=== PATIENT | male | born 1960 | race African-American/Black ===

== ENCOUNTER 2020-12-03 11:49 | Outpatient (REF) | payer OTHER, SELFPAY ==
[2020-12-03 13:54] LABS: MANUAL DIFF FLAG NO
[2020-12-03 13:55] LABS: Basophils Percent Auto 0.3 % (0-2); Eosinophils Absolute Auto 0.1 X10*3/uL (0.0-0.4); Eosinophils Percent Auto 1.7 % (0-4); Hematocrit 48.3 % (42-52); Hemoglobin 15.6 g/dl (14.0-18.0); Imm Gran Abs Auto 0.02 X10*3/uL (0.00-0.03); Imm Gran Pct Auto 0.3 % (0.0-0.4); Lymphocytes Absolute Auto 1.6 X10*3/uL (1.2-4.9); Lymphocytes Percent Auto 23.3 % (20-40); Mean Corpuscular HGB Conc 32.3 g/dl (31.0-36.0); Mean Corpuscular Hemoglobin 28.3 pg (27.0-33.0); Mean Corpuscular Volume 87.7 fL (80-98); Mean Platelet Volume 10.4 fL (9.4-12.4); Monocytes Absolute Auto 0.6 X10*3/uL (0.1-1.2); Monocytes Percent Auto 9.5 % (2-11); Neutrophils Absolute Auto 4.3 X10*3/uL (2.0-8.3); Neutrophils Percent Auto 64.9 % (45-73); Platelet Count 193 X10*3/uL (160-400); Red Blood Count 5.51 X10*6/uL (4.60-5.80); Red Cell Distribution Width 13.8 % (11.0-16.0); White Blood Count 6.6 X10*3/uL (4.8-10.8)
[2020-12-03 14:38] LABS: Creatinine Urine 82.07 mg/dL; Microalbum/Creatinine Ratio Ur 214.4 ug/mg cr
[2020-12-03 14:59] LABS: Alanine Aminotransferase 52 U/L (0-40); Albumin Level 4.3 g/dL (3.5-5.0); Alkaline Phosphatase 59 U/L (39-117); Anion Gap 11 (12-20); Aspartate Amino Transferase 26 U/L (5-37); Bilirubin Total 0.7 mg/dL (0.0-1.0); Blood Urea Nitrogen 15 mg/dL (9-16); Calcium 9.2 mg/dL (8.4-10.2); Carbon Dioxide 27 mmol/L (22-29); Chloride 108 mmol/L (96-108); Estimated Glomerular Filt Rate > 60; Glucose Random 85 mg/dL (60-115); Potassium 4.1 mmol/L (3.3-5.1); Sodium 142 mmol/L (135-145); Total Protein 7.3 g/dL (6.5-8.0)
[2020-12-03 15:05] LABS: TSH reflex Free T4 1.41 uIU/mL (0.32-4.0)
[2020-12-03 15:13] LABS: Estimated Average Glucose 126 mg/dL
== END 2020-12-03 11:50 | disposition home or self-care (01) ==
LOC: HO.HMGCLDS 11:49
PROVIDERS: PCP Nurse Practitioner Family; Visit Provider Nurse Practitioner Family
DX: E11.9 Type 2 diabetes mellitus without complications (principal); T78.40XA Allergy, unspecified, initial encounter; X58.XXXA Exposure to other specified factors, initial encounter; E03.9 Hypothyroidism, unspecified
CPT/HCPCS: 36415; 80053; 82043; 83036; 84443; 85025

== ENCOUNTER 2020-12-06 09:39 | Outpatient (REF) | payer OTHER, SELFPAY ==
--- NOTE | ~2020-12-06 | US_ITS ---
EXAMINATION: US ABDOMEN COMPLETE CLINICAL INFORMATION: Abnormal levels of other serum enzymes. COMPARISON: Ultrasound abdomen 07/13/2013. TECHNIQUE: Real-time imaging of the abdominal viscera. FINDINGS: PANCREAS: The visualized head and body of the pancreas appears unremarkable. Remainder of the pancreas is obscured by bowel gas. ABDOMINAL AORTA: The visualized aorta has normal caliber. INFERIOR VENA CAVA: Visualized portions are normal. LIVER: Normal. The liver is normal in size. The liver contour is normal. Parenchymal echogenicity is normal. No focal hepatic lesion. There is no intrahepatic biliary duct dilatation seen. GALLBLADDER: Echogenic bile present. No shadowing gallstones. No gallbladder wall thickening. COMMON BILE DUCT: Caliber measuring 0.7 cm in diameter. RIGHT KIDNEY: Mild increased echogenicity of the parenchyma. No hydronephrosis. No renal calculi or focal parenchymal lesions. The kidney measures 8.8 cm in maximum dimension. LEFT KIDNEY: Mild increased echogenicity of the parenchyma. Upper pole 1.6 cm cyst. Lower pole 1.8 cm cyst. No hydronephrosis or renal calculi. The kidney measures 9.3 cm in maximum dimension. SPLEEN: Normal. The spleen measures 9.3 cm in maximum dimension. FREE FLUID: None. US/US abdomen complete IMPRESSION: 1. Mild increased echogenicity of the renal parenchyma may indicate underlying medical renal disease. Left renal cysts. No hydronephrosis. 2. Echogenic bile in the gallbladder without evidence of shadowing gallstones. 3. Otherwise unremarkable study.
[2020-12-07 03:50] LABS: HBc Num1 0.09 S/CO (0.00-0.79); Hepatitis A Antibody IgM 0.22 Index (0-0.79); ~Hepatitis A Antibody IgM Nonreactive (Nonreactive); ~Hepatitis B Surface Antibody NONREACTIVE (Nonreactive)
[2020-12-07 03:51] LABS: Hepatitis B Core Antibody Nonreactive (Nonreactive)
[2020-12-07 04:01] LABS: HBsAGNum1 0.17 S/CO (0.00-0.99); Hepatitis B Surface Antigen Negative (Negative); ~Hepatitis C Antibody Nonreactive (Nonreactive)
== END 2020-12-06 09:40 | disposition home or self-care (01) ==
LOC: HO.HMGCX 09:39
PROVIDERS: PCP Nurse Practitioner Family; Visit Provider Nurse Practitioner Family
DX: R74.8 Abnormal levels of other serum enzymes (principal)
CPT/HCPCS: 36415; 76700; 86704; 86706; 86709; 86803; 87340

== ENCOUNTER 2021-05-14 09:20 | Outpatient (REF) | payer OTHER, SELFPAY ==
[2021-05-14 11:20] LABS: Glucose Urine UA NEG (NEG); Leukocyte Esterase Urine NEG (NEG); Nitrite Urine NEG (NEG); Urine Blood NEG (NEG); Urine Ketones NEG (NEG); Urine Protein TRACE MG/DL (NEG-TRACE)
[2021-05-14 11:23] LABS: Appearance Urine CLEAR; Color Urine YELLOW
[2021-05-14 11:44] LABS: Alanine Aminotransferase 56 U/L (0-40); Albumin Level 4.3 g/dL (3.5-5.0); Alkaline Phosphatase 63 U/L (39-117); Anion Gap 12 (12-20); Aspartate Amino Transferase 28 U/L (5-37); Bilirubin Total 1.1 mg/dL (0.0-1.0); Blood Urea Nitrogen 16 mg/dL (9-16); Calcium 9.5 mg/dL (8.4-10.2); Carbon Dioxide 25 mmol/L (22-29); Chloride 108 mmol/L (96-108); Cholesterol 114 mg/dL; Estimated Glomerular Filt Rate 56; Glucose Fasting 94 mg/dL (60-99); HDL Cholesterol 37 mg/dL; LDL Cholesterol Calculated 66 mg/dl; Potassium 4.3 mmol/L (3.3-5.1); Sodium 141 mmol/L (135-145); Total Protein 7.3 g/dL (6.5-8.0); Triglycerides 59 mg/dL
[2021-05-14 12:07] LABS: Prostate Specific Antigen Scr 1.86 ng/mL (<0.05-4.0); TSH reflex Free T4 1.44 uIU/mL (0.32-4.0)
== END 2021-05-14 09:21 | disposition home or self-care (01) ==
LOC: HO.HMGCLDS 09:20
PROVIDERS: PCP Nurse Practitioner Family; Visit Provider Nurse Practitioner Family
DX: Z00.00 Encounter for general adult medical examination without abnormal findings (principal); Z12.5 Encounter for screening for malignant neoplasm of prostate
CPT/HCPCS: 36415; 80053; 80061; 81003; 84153; 84443

== ENCOUNTER 2021-07-02 12:10 | Outpatient (REF) | payer OTHER, SELFPAY ==
[2021-07-03 08:16] LABS: HBS Num1 0.36 mIU/mL (0-7.99); Hepatitis A Antibody IgM 0.21 Index (0-0.79); ~HepC Num1 0.12 S/CO (0.00-0.79); ~Hepatitis A Antibody IgM Nonreactive (Nonreactive); ~Hepatitis B Surface Antibody NONREACTIVE (Nonreactive); ~Hepatitis C Antibody Nonreactive (Nonreactive)
[2021-07-03 08:31] LABS: HBc Num1 0.07 S/CO (0.00-0.79); HBsAGNum1 0.19 S/CO (0.00-0.99); Hepatitis B Core Antibody Nonreactive (Nonreactive); Hepatitis B Surface Antigen Negative (Negative)
== END 2021-07-02 12:11 | disposition home or self-care (01) ==
LOC: HO.HMGCLDS 12:10
PROVIDERS: PCP Nurse Practitioner Family; Visit Provider Nurse Practitioner Family
DX: R74.8 Abnormal levels of other serum enzymes (principal)
CPT/HCPCS: 36415; 86704; 86706; 86709; 86803; 87340

== ENCOUNTER 2021-07-05 09:09 | Outpatient (REF) | payer OTHER, SELFPAY ==
--- NOTE | ~2021-07-05 | US_ITS ---
EXAMINATION: US ABDOMEN COMPLETE CLINICAL INFORMATION: Elevated liver enzymes. COMPARISON: Ultrasound abdomen complete 12/06/2020 and 07/13/2013. TECHNIQUE: Real-time imaging of the abdominal viscera. FINDINGS: PANCREAS: Not well visualized due to bowel gas ABDOMINAL AORTA: No nodules visualized due to bowel gas INFERIOR VENA CAVA: Visualized portions are normal. LIVER: The liver is normal in size. The liver contour is normal. Liver echotexture is increased. No focal hepatic lesion. There is no intrahepatic biliary duct dilatation seen. GALLBLADDER: The gallbladder is normal in size. The gallbladder is filled with hypoechoic material suggestive of sludge. This is similar to previous exam. No definite gallstones are seen. The gallbladder wall is normal. COMMON BILE DUCT: Normal in caliber measuring 0.5 cm in diameter. RIGHT KIDNEY: Normal normal No hydronephrosis. No renal calculi or focal parenchymal lesions. The kidney measures 9.5 cm in maximum dimension. LEFT KIDNEY: There are 2 cysts measuring 1.9 x 1.6 x 1.7 cm in the upper pole and 2 x 1.9 x 1.8 cm in the midpole. No hydronephrosis or renal calculi. The kidney measures 9.6 cm in maximum dimension. SPLEEN: Normal. The spleen measures 9.7 cm in maximum dimension. FREE FLUID: None. US/US abdomen complete IMPRESSION: Echogenic liver probably representing fatty infiltration. Sludge filled gallbladder similar to previous exams. Left renal cysts. Limited visualization of the pancreas and aorta.
== END 2021-07-05 09:10 | disposition home or self-care (01) ==
LOC: HO.HMGCX 09:09
PROVIDERS: PCP Nurse Practitioner Family; Visit Provider Nurse Practitioner Family
DX: R74.8 Abnormal levels of other serum enzymes (principal)
CPT/HCPCS: 76700

== ENCOUNTER 2022-06-19 11:57 | Outpatient (REF) | payer OTHER, SELFPAY ==
[2022-06-19 14:02] LABS: Appearance Urine Clear; Color Urine Yellow; Glucose Urine UA Negative (Negative); Leukocyte Esterase Urine Negative (Negative); Nitrite Urine Negative (Negative); PH 5.5 (5.0-9.0); Specific Gravity - Urine 1.015 (1.005-1.025); Urine Blood Negative (Negative); Urine Ketones Negative (Negative); Urine Protein Trace mg/dL (Neg-Trace)
[2022-06-19 14:24] LABS: MANUAL DIFF FLAG NO
[2022-06-19 14:30] LABS: Basophils Percent Auto 0.3 % (0-2); Eosinophils Absolute Auto 0.1 X10*3/uL (0.0-0.4); Eosinophils Percent Auto 1.5 % (0-4); Hemoglobin 15.7 g/dl (14.0-18.0); Imm Gran Abs Auto 0.02 X10*3/uL (0.00-0.03); Imm Gran Pct Auto 0.3 % (0.0-0.4); Lymphocytes Absolute Auto 1.4 X10*3/uL (1.2-4.9); Lymphocytes Percent Auto 20.4 % (20-40); Mean Corpuscular Hemoglobin 27.6 pg (27.0-33.0); Mean Corpuscular Volume 86.3 fL (80.0-98.0); Mean Platelet Volume 10.4 fL (9.4-12.4); Monocytes Absolute Auto 0.6 X10*3/uL (0.1-1.2); Monocytes Percent Auto 9.2 % (2-11); Neutrophils Absolute Auto 4.6 x10*3/uL (2.0-8.3); Neutrophils Percent Auto 68.3 % (45-73); Platelet Count 204 X10*3/uL (160-400); Red Blood Count 5.68 X10*6/uL (4.60-5.80); Red Cell Distribution Width 13.9 % (11.0-16.0); White Blood Count 6.7 X10*3/uL (4.8-10.8)
[2022-06-19 14:49] LABS: Anion Gap 13 (12-20); Blood Urea Nitrogen 19 mg/dL (9-16); Calcium 9.6 mg/dL (8.4-10.2); Carbon Dioxide 26 mmol/L (22-29); Chloride 108 mmol/L (96-108); Estimated Glomerular Filt Rate 54; Iron 89 mcg/dL (45-160); Percent Iron Saturation 26 % (15-50); Potassium 4.4 mmol/L (3.3-5.1); Sodium 143 mmol/L (135-145); Total Iron Binding Capacity 343 mcg/dL (228-428); Unsaturated Iron Binding 254 ug/dL
[2022-06-19 15:09] LABS: Creatinine Urine 126.52 mg/dL; Protein/Creatinine Ratio, Ur 0.13 (<0.2); Total Protein Urine Random 16 mg/dL (<12)
== END 2022-06-19 11:58 | disposition home or self-care (01) ==
LOC: HO.HMGCLDS 11:57
PROVIDERS: PCP Nurse Practitioner Family; Visit Provider Internal Medicine Nephrology
DX: R80.9 Proteinuria, unspecified (principal); N17.9 Acute kidney failure, unspecified
CPT/HCPCS: 36415; 80051; 81003; 82310; 82565; 83540; 84156; 84520; 85025

== ENCOUNTER 2022-07-11 09:23 | Outpatient (REF) | payer OTHER, SELFPAY ==
[2022-07-11 11:48] LABS: MANUAL DIFF FLAG NO
[2022-07-11 11:59] LABS: Basophils Percent Auto 0.5 % (0-2); Eosinophils Absolute Auto 0.1 X10*3/uL (0.0-0.4); Eosinophils Percent Auto 1.9 % (0-4); Hematocrit 47.7 % (42.0-52.0); Hemoglobin 15.4 g/dl (14.0-18.0); Imm Gran Abs Auto 0.02 X10*3/uL (0.00-0.03); Imm Gran Pct Auto 0.4 % (0.0-0.4); Lymphocytes Absolute Auto 1.2 X10*3/uL (1.2-4.9); Lymphocytes Percent Auto 21.8 % (20-40); Mean Corpuscular HGB Conc 32.3 g/dl (31.0-36.0); Mean Corpuscular Volume 86.7 fL (80.0-98.0); Mean Platelet Volume 10.3 fL (9.4-12.4); Monocytes Absolute Auto 0.5 X10*3/uL (0.1-1.2); Monocytes Percent Auto 9.3 % (2-11); Neutrophils Absolute Auto 3.8 x10*3/uL (2.0-8.3); Neutrophils Percent Auto 66.1 % (45-73); Platelet Count 188 X10*3/uL (160-400); Red Cell Distribution Width 13.6 % (11.0-16.0); White Blood Count 5.7 X10*3/uL (4.8-10.8)
[2022-07-11 12:08] LABS: Estimated Average Glucose 131 mg/dL; Hemoglobin A1c % 6.2 %
[2022-07-11 12:16] LABS: Appearance Urine Clear; Color Urine Yellow; Glucose Urine UA Negative (Negative); Leukocyte Esterase Urine Negative (Negative); Nitrite Urine Negative (Negative); PH 6.5 (5.0-9.0); UMIC TRIGGER UACC YES; Urine Blood Negative (Negative); Urine Ketones Negative (Negative); Urine Protein 30 (1+) mg/dL (Neg-Trace)
[2022-07-11 12:28] LABS: Creatinine Urine 84.01 mg/dL
[2022-07-11 12:45] LABS: Bacteria Urine None Seen (None Seen); Hyaline Casts Urine 0-2 /LPF (0-2); RBC Urine 0-2 /HPF (0-2); Squamous Epithelial Cell Urine 0-2 /HPF (0-2); WBC Urine 0-5 /HPF (0-5)
[2022-07-11 12:52] LABS: Prostate Specific Antigen Scr 0.71 ng/mL (<0.05-4.0); TSH reflex Free T4 1.72 uIU/mL (0.32-4.0)
[2022-07-11 12:56] LABS: Alanine Aminotransferase 68 U/L (0-40); Albumin Level 4.2 g/dL (3.5-5.0); Alkaline Phosphatase 67 U/L (39-117); Anion Gap 15 (12-20); Aspartate Amino Transferase 35 U/L (5-37); Blood Urea Nitrogen 16 mg/dL (9-16); Calcium 9.4 mg/dL (8.4-10.2); Carbon Dioxide 24 mmol/L (22-29); Chloride 105 mmol/L (96-108); Cholesterol 116 mg/dL; Estimated Glomerular Filt Rate > 60; Glucose Fasting 101 mg/dL (60-99); HDL Cholesterol 36 mg/dL; LDL Cholesterol Calculated 69 mg/dl; Potassium 4.4 mmol/L (3.3-5.1); Sodium 140 mmol/L (135-145); Total Protein 7.2 g/dL (6.5-8.0); Triglycerides 59 mg/dL
== END 2022-07-11 09:24 | disposition home or self-care (01) ==
LOC: HO.HMGCLDS 09:23
PROVIDERS: PCP Nurse Practitioner Family; Visit Provider Nurse Practitioner Family
DX: Z00.00 Encounter for general adult medical examination without abnormal findings (principal); Z12.5 Encounter for screening for malignant neoplasm of prostate; E11.9 Type 2 diabetes mellitus without complications
CPT/HCPCS: 36415; 80053; 80061; 81001; 81003; 82043; 83036; 84153; 84443; 85025

== ENCOUNTER → 2022-08-18 09:28 | Outpatient (REF) | payer OTHER, SELFPAY ==
--- NOTE | 2022-08-18 09:31 | CA_ITS ---
Transthoracic Echocardiogram Patient (Last, First, Middle): Jaime Chapin, Gender: Male Date of : 1960 Age: 62 Procedure Date: 08/18/2022 Procedure Type: Transthoracic Echocardiogram Location: OP Height: 167.64 cm Weight: 97.07 kg BSA: 2.06 m2 Heart Rate: 68 bpm BP: 130 / 80 mmHg Outside Parts Sales: MARILIA Referring MD: Rodger Yeung [facility] Seed Cleaner: Miguel Angel Howe MD Symptoms: I21.9 - Acute myocardial infarction, unspecified Study Quality: Fair/Contrast ECG Rhythm: Sinus Conclusions: - 1. Normal LV size with low normal LV ejection fraction 50-55% with mild LVH with regional wall motion abnormality suggestive underlying coronary artery disease with normal diastolic function 2. Mild mitral regurgitation 3. Normal RV systolic pressure 4. No gross pericardial effusion Findings Procedure Information Contrast agent, definity, is being given per protocol without apparent complications. Left Ventricle Normal left ventricular cavity size. There is mildly increased left ventricular wall thickness. The left ventricular systolic function is low normal. The visually estimated ejection fraction is between 50-55%. Diastolic function is normal for age. Wall Motion Rest Echo Findings The mid inferior and basal inferoseptal segments are hypokinetic. The inferolateral wall and basal inferior segment are akinetic. All other scored wall segments showed normal motion. Right Ventricle Normal right ventricular cavity size and systolic function. Atria The left atrium is mildly dilated. Interatrial shunt cannot be excluded. The right atrium is normal in size. Aortic Valve Normal aortic valve structure and function. There is no aortic valve stenosis. There is no aortic valve regurgitation. Mitral Valve There is mild anterior and posterior mitral leaflet thickening. There is mild mitral valve regurgitation. There is no mitral valve stenosis. Pulmonic Valve The pulmonic valve is likely normal. There is trace to mild pulmonic valve regurgitation. Tricuspid Valve Normal tricuspid valve structure. There is trace tricuspid valve regurgitation. The right ventricular systolic pressure is normal. The right ventricular systolic pressure is 20 mmHg. Normal right atrial pressure. There is no evidence of pulmonary hypertension. Great Vessels All visible segments of the aorta are normal in size. The pulmonary artery was not well visualized. Venous The inferior vena cava is normal in size and collapses greater than 50% with inspiration. Pericardium/Pleural There is no evidence of pericardial effusion. Prior Study Comparison No prior study available for comparison. Measurements 2D Linear Measurements IVSd: 1.23 0.6-0.9/0.6-1.0 cm LVIDd: 5.00 3.9-5.3/4.2-5.9 cm LVIDd Index: 2.43 2.4-3.2/2.2-3.1 cm/m2 LVIDs: 3.81 2.0-3.6 cm LVPWd: 1.19 0.7-1.1 cm LA Diam: 5.20 2.7-3.8/3.0-4.0 cm LAIDs Index: 2.52 1.5-2.3 cm/m2 LV Mass: 294.86 67-162/88-224 g LV Mass Index: 143.14 43-95/49-115 g/m2 LVOT Diam: 2.00 3.0+(-)1.3 cm 2D Systolic Function EF 4C: 52.00 >55% EF 2C: 65.90 >55% Mitral Valve MV Pk E: 0.84 MV PK A: 0.59 MV Decel Time: 147.00 E/A: 1.40 E'Lateral: 11.20 E'Medial: 7.51 E/E' Med: 11.10 E/E' Lat: 7.50 PHT: 43.00 MVA PHT: 5.12 Decel Mcdowell: 5.68 Aortic Valve AoV Pk Riley: 1.09 AoV Mn Riley: 0.81 AoV VTI: 0.24 AoV Pk Grad: 5.00 Aov Mn Grad: 3.00 KALYN Cont.VTI: 2.20 LVOT LVOT Pk Riley: 0.89 LVOT Mn Riley: 0.59 LVOT VTI: 0.17 LVOT Pk Grad: 3.00 LVOT Mn Grad: 2.00 LVOT Diam: 2.00 LVOT Area: 3.14 Diastolic Function MV Pk E: 0.84 MV Pk A: 0.59 E/A: 1.40 E'Medial: 7.51 E/E' Med: 11.10 E' Laterial: 11.20 E/E' Lat: 7.50 Right Ventricle TAPSE (mm): 19.30 TVS' Riley: 14.50 Tricuspid Valve TR Pk Riley: 2.08 TR Pk Grad: 17.00 RA Press: 3.00 RVSP: 20.00 Great Vessels Aorta Sinus of Valsalva: 3.70 2.0-3.5 cm Ao Asc: 3.60 2.1-3.4 cm Pulmonary Valve PV Pk Riley: 0.94 Peak PV Grad: 4.00 Updated in Other Vendor System with Status of Final Miguel Angel Howe MD electronically signed on 08/18/2022 2:09:05 PM with status of Final
== END ==
LOC: HO.CARD 09:28
PROVIDERS: Visit Provider Nurse Practitioner Family
DX: I21.9 Acute myocardial infarction, unspecified (principal)
CPT/HCPCS: 93306; Q9957

== ENCOUNTER 2022-12-03 11:22 | Outpatient (REF) | payer OTHER, SELFPAY ==
[2022-12-03 14:34] LABS: MANUAL DIFF FLAG NO
[2022-12-03 14:49] LABS: Basophils Percent Auto 0.6 % (0-2); Eosinophils Absolute Auto 0.2 X10*3/uL (0.0-0.4); Eosinophils Percent Auto 3.1 % (0-4); Hematocrit 48.1 % (42.0-52.0); Hemoglobin 15.5 g/dl (14.0-18.0); Imm Gran Abs Auto 0.02 X10*3/uL (0.00-0.03); Imm Gran Pct Auto 0.3 % (0.0-0.4); Lymphocytes Absolute Auto 1.7 X10*3/uL (1.2-4.9); Lymphocytes Percent Auto 25.9 % (20-40); Mean Corpuscular HGB Conc 32.2 g/dl (31.0-36.0); Mean Corpuscular Hemoglobin 28.4 pg (27.0-33.0); Mean Corpuscular Volume 88.3 fL (80.0-98.0); Mean Platelet Volume 10.9 fL (9.4-12.4); Monocytes Absolute Auto 0.7 X10*3/uL (0.1-1.2); Monocytes Percent Auto 10.2 % (2-11); Neutrophils Absolute Auto 3.8 x10*3/uL (2.0-8.3); Neutrophils Percent Auto 59.9 % (45-73); Platelet Count 204 X10*3/uL (160-400); Red Blood Count 5.45 X10*6/uL (4.60-5.80); Red Cell Distribution Width 13.7 % (11.0-16.0); White Blood Count 6.4 X10*3/uL (4.8-10.8)
[2022-12-03 15:05] LABS: Appearance Urine Clear; Color Urine Yellow; Glucose Urine UA Negative (Negative); Leukocyte Esterase Urine Trace (Negative); Nitrite Urine Negative (Negative); UMIC TRIGGER UACC YES; Urine Blood Negative (Negative); Urine Ketones Negative (Negative); Urine Protein Trace mg/dL (Neg-Trace)
[2022-12-03 15:08] LABS: Anion Gap 11 (12-20); Blood Urea Nitrogen 21 mg/dL (9-16); Calcium 9.5 mg/dL (8.4-10.2); Carbon Dioxide 28 mmol/L (22-29); Chloride 109 mmol/L (96-108); Estimated Glomerular Filt Rate 50; Iron 99 mcg/dL (45-160); Percent Iron Saturation 35 % (15-50); Potassium 4.8 mmol/L (3.3-5.1); Sodium 143 mmol/L (135-145); Total Iron Binding Capacity 279 mcg/dL (228-428); Unsaturated Iron Binding 180 ug/dL
[2022-12-03 15:08] LABS: Bacteria Urine None Seen (None Seen); Hyaline Casts Urine 0-2 /LPF (0-2); RBC Urine 0-2 /HPF (0-2); Squamous Epithelial Cell Urine 0-2 /HPF (0-2); WBC Urine 0-5 /HPF (0-5)
[2022-12-03 21:34] LABS: Creatinine Urine 170.73 mg/dL; Protein/Creatinine Ratio, Ur 0.12 (<0.2); Total Protein Urine Random 21 mg/dL (<12)
== END 2022-12-03 11:23 | disposition home or self-care (01) ==
LOC: HO.HMGCLDS 11:22
PROVIDERS: PCP Nurse Practitioner Family; Visit Provider Internal Medicine Nephrology
DX: N17.9 Acute kidney failure, unspecified (principal); R80.9 Proteinuria, unspecified
CPT/HCPCS: 36415; 80051; 81001; 81003; 82310; 82565; 83540; 84155; 84156; 84520; 85025

== ENCOUNTER 2023-05-25 12:03 | Outpatient (REF) | payer MEDICARE, SELFPAY ==
[2023-05-25 13:28] LABS: MANUAL DIFF FLAG NO
[2023-05-25 13:46] LABS: Basophils Percent Auto 0.5 % (0-2); Eosinophils Absolute Auto 0.1 X10*3/uL (0.0-0.4); Hematocrit 47.8 % (42.0-52.0); Hemoglobin 15.2 g/dl (14.0-18.0); Imm Gran Abs Auto 0.02 X10*3/uL (0.00-0.03); Imm Gran Pct Auto 0.3 % (0.0-0.4); Lymphocytes Absolute Auto 1.8 X10*3/uL (1.2-4.9); Mean Corpuscular HGB Conc 31.8 g/dl (31.0-36.0); Mean Corpuscular Hemoglobin 27.7 pg (27.0-33.0); Mean Corpuscular Volume 87.1 fL (80.0-98.0); Mean Platelet Volume 10.8 fL (9.4-12.4); Monocytes Absolute Auto 0.7 X10*3/uL (0.1-1.2); Monocytes Percent Auto 11.1 % (2-11); Neutrophils Absolute Auto 3.4 x10*3/uL (2.0-8.3); Neutrophils Percent Auto 57.1 % (45-73); Platelet Count 184 X10*3/uL (160-400); Red Blood Count 5.49 X10*6/uL (4.60-5.80); Red Cell Distribution Width 13.7 % (11.0-16.0)
[2023-05-25 13:53] LABS: Appearance Urine Clear; Color Urine Yellow; Glucose Urine UA Negative (Negative); Leukocyte Esterase Urine Negative (Negative); Nitrite Urine Negative (Negative); PH 5.5 (5.0-9.0); Specific Gravity - Urine 1.015 (1.005-1.025); UMIC TRIGGER UACC YES; Urine Blood Negative (Negative); Urine Ketones Negative (Negative); Urine Protein 30 (1+) mg/dL (Neg-Trace)
[2023-05-25 13:58] LABS: Bacteria Urine None Seen (None Seen); Hyaline Casts Urine 0-2 /LPF (0-2); RBC Urine 0-2 /HPF (0-2); Squamous Epithelial Cell Urine 0-2 /HPF (0-2); WBC Urine 0-5 /HPF (0-5)
[2023-05-25 14:41] LABS: Alanine Aminotransferase 46 U/L (0-40); Albumin Level 4.3 g/dL (3.5-5.0); Alkaline Phosphatase 56 U/L (39-117); Anion Gap 12 (12-20); Aspartate Amino Transferase 28 U/L (5-37); Bilirubin Total 0.7 mg/dL (0.0-1.0); Blood Urea Nitrogen 14 mg/dL (9-16); Calcium 9.8 mg/dL (8.4-10.2); Carbon Dioxide 27 mmol/L (22-29); Chloride 109 mmol/L (96-108); Cholesterol 101 mg/dL; Estimated Glomerular Filt Rate > 60; Glucose Fasting 90 mg/dL (60-99); HDL Cholesterol 33 mg/dL; LDL Cholesterol Calculated 60 mg/dl; Potassium 4.5 mmol/L (3.3-5.1); Sodium 143 mmol/L (135-145); Total Protein 7.7 g/dL (6.5-8.0); Triglycerides 43 mg/dL
[2023-05-25 14:58] LABS: TSH reflex Free T4 1.65 uIU/mL (0.32-4.0)
== END 2023-05-25 12:04 | disposition home or self-care (01) ==
LOC: HO.HMGCLDS 12:03
PROVIDERS: PCP Nurse Practitioner Family; Visit Provider Nurse Practitioner Family
DX: E11.9 Type 2 diabetes mellitus without complications (principal)
CPT/HCPCS: 36415; 80053; 80061; 81001; 84443; 85025

== ENCOUNTER 2023-06-22 13:38 | Outpatient (REF) | payer MEDICARE, SELFPAY ==
[2023-06-22 16:35] LABS: Prostate Specific Antigen Scr 0.56 ng/mL (<0.05-4.0)
== END 2023-06-22 13:39 | disposition home or self-care (01) ==
LOC: HO.HMGCLDS 13:38
PROVIDERS: PCP Nurse Practitioner Family; Visit Provider Nurse Practitioner Family
DX: Z12.5 Encounter for screening for malignant neoplasm of prostate (principal)
CPT/HCPCS: 36415; 84153

== ENCOUNTER 2023-09-07 10:48 | Outpatient (REF) | payer MEDICARE, SELFPAY ==
[2023-09-07 13:32] LABS: MANUAL DIFF FLAG NO
[2023-09-07 13:37] LABS: Basophils Percent Auto 0.7 % (0-2); Eosinophils Absolute Auto 0.2 X10*3/uL (0.0-0.4); Eosinophils Percent Auto 2.7 % (0-4); Hematocrit 48.5 % (42.0-52.0); Hemoglobin 15.2 g/dl (14.0-18.0); Imm Gran Abs Auto 0.02 X10*3/uL (0.00-0.03); Imm Gran Pct Auto 0.3 % (0.0-0.4); Lymphocytes Absolute Auto 1.3 X10*3/uL (1.2-4.9); Lymphocytes Percent Auto 22.2 % (20-40); Mean Corpuscular HGB Conc 31.3 g/dl (31.0-36.0); Mean Corpuscular Hemoglobin 27.4 pg (27.0-33.0); Mean Corpuscular Volume 87.4 fL (80.0-98.0); Mean Platelet Volume 10.4 fL (9.4-12.4); Monocytes Absolute Auto 0.7 X10*3/uL (0.1-1.2); Monocytes Percent Auto 12.5 % (2-11); Neutrophils Absolute Auto 3.6 x10*3/uL (2.0-8.3); Neutrophils Percent Auto 61.6 % (45-73); Platelet Count 180 X10*3/uL (160-400); Red Blood Count 5.55 X10*6/uL (4.60-5.80); Red Cell Distribution Width 14.1 % (11.0-16.0); White Blood Count 5.9 X10*3/uL (4.8-10.8)
[2023-09-07 14:07] LABS: Anion Gap 10 (12-20); Blood Urea Nitrogen 10 mg/dL (9-16); Calcium 9.4 mg/dL (8.4-10.2); Carbon Dioxide 25 mmol/L (22-29); Chloride 110 mmol/L (96-108); Estimated Glomerular Filt Rate > 60; Sodium 141 mmol/L (135-145)
[2023-09-07 14:12] LABS: Creatinine Urine 197.56 mg/dL; Protein/Creatinine Ratio, Ur 0.48 (<0.2); Total Protein Urine Random 95 mg/dL (<12)
== END 2023-09-07 10:49 | disposition home or self-care (01) ==
LOC: HO.HMGCLDS 10:48
PROVIDERS: PCP Nurse Practitioner Family; Visit Provider Internal Medicine Nephrology
DX: R80.9 Proteinuria, unspecified (principal); N18.9 Chronic kidney disease, unspecified
CPT/HCPCS: 36415; 80051; 82310; 82565; 82570; 84156; 84520; 85025

== ENCOUNTER 2023-10-21 14:36 | Outpatient (AMB) | payer MEDICARE, SELFPAY ==
[2023-10-21 14:38] VITALS: BP 140/74; PULSE 79; BMI 35.4
--- NOTE | 2023-10-21 14:38 | A.OFFVIS_ITS ---
Intake Vital Signs 10/21/23 14:38 Height 5 ft 6 in Weight 219 lb 2.232 oz BMI 35.4 BP 140/74 H Blood Pressure Location Lt brachial Position Sitting Pulse 79 Intake Visit Reasons: NPV/Melissa. Anjana/BRIDGETTE Intake Note: NPV/J.Anjana/MA pt its feeling fine. Music Historian Required: No Accompanied by: Self / Same As Patient Allergies No Known Allergies [No Known Allergies*] Allergy (Unverified 03/24/23 13:06) HEPARIN COMBINATION Allergy (Unknown, Uncoded 03/24/23 13:06) Unknown Heparin Combination Allergy (Unknown, Uncoded 03/24/23 13:06) Anaphylaxis Medication List - Last Reconciled 10/21/23 by Gio Benavides MD amlodipine 10 mg PO DAILY aspirin 81 mg PO DAILY atorvastatin 80 mg PO DAILY clopidogrel 75 mg PO DAILY ezetimibe 10 mg PO DAILY latanoprost 0.005% 1 drp ophthalmic (eye) BEDTIME lisinopril 10 mg PO DAILY metoprolol tartrate 25 mg PO BID HPI HPI Comments History of Present Illness Details [age] gentleman who is here for 1st office visit. In 2015 he presented with dyspnea and palpitations to [facility] and based on his report he was transferred to [facility] for acute [place]. he had primary PCI performed. He said he was given heparin and unfortunately had a reaction to heparin and developed blood clots which I think was JAMES. We do not have a lot of details of that and we will request records. He said his did CPR and eventually he was in the ICU for 38 days. He has a midline sternotomy scar and I do not know exact details currently. In any case he has recovered since then and has been doing well. He has no chest pains or shortness of breath. Blood pressure is mildly elevated. He is diabetic. He had echocardiography August 2022 which showed inferior inferolateral wall motion abnormality with mild mitral valve regurgitation. RV function was normal. [facility] Medical History (Updated 10/21/23 @ 15:10 by Gio Benavides MD) Proteinuria Fatty liver Cardiogenic shock Myocardial infarct CKD (chronic kidney disease) Hyperparathyroidism Heparin induced thrombocytopenia CRI (chronic renal insufficiency) Pulmonary embolism Coronary artery disease Renal insufficiency Hyperlipidemia Hypertension Diabetes Surgical History Stented coronary artery History of open heart surgery Family History Father Unknown family medical history Mother HTN (hypertension) Other Substance use disorder Social History Housing: Other Patient Tobacco Use Status: Never used Tobacco e-Cigarette/Vaping Use: Never Used Second Hand Smoke Exposure: Yes Current occupational status: retired Cognitive needs: No Hearing needs: No Vision needs: No Review of Systems Const Reports chills, Reports fatigue, Reports fever(s), Reports frequent falls, Reports weakness, Reports weight gain and Reports weight loss ENT Reports dizziness Card Reports chest pain, Reports leg edema, Reports lightheadedness, Reports palpitations, Reports dyspnea, Reports dyspnea on exertion and Reports orthopnea Resp Reports cough, Reports dyspnea and Reports dyspnea on exertion GI Reports bloating and Reports change in bowel habits Musc Reports muscle weakness, Reports numbness and Reports tingling Neuro Reports dizziness, Reports frequent falls, Reports numbness, Reports tingling and Reports weakness Endo Reports fatigue and Reports palpitations Physical Exam Vital Signs: Last Vital Signs Pulse 79 10/21/23 14:38 BP 140/74 H 10/21/23 14:38 BMI result Body Mass Index 35.4 GENERAL APPEARANCE: in no acute distress, pleasant. NECK: no carotid bruit, no jugular venous distention. SKIN: no suspicious lesions, warm and dry. HEART: Regular rate and rhythm. Holosystolic murmur left sternal border and at the apex radiating to axilla. LUNGS: clear to auscultation bilaterally. ABDOMEN: soft, nontender. EXTREMITIES: no edema. PERIPHERAL PULSES: equal. NEUROLOGIC: No gross deficits, AAO X 3 Office Procedures EKG Details: Sinus rhythm 79 beats per minute, leftward axis, inferior infarct, voltage criteria for left ventricular hypertrophy, QTC 456 milliseconds. [id number], Complete Assessment & Plan Assessment & Plan (1) Hypertension: Code(s): I10 - Essential (primary) hypertension (2) Systolic murmur: Code(s): R01.1 - Cardiac murmur, unspecified (3) Myocardial infarct: Code(s): I21.9 - Acute myocardial infarction, unspecified Plan [age] gentleman presenting for 1st office visit. He has history of previous infarct which I think was an RCA infarct and he had PCI performed. He is on aspirin Plavix. No bleeding concerns. LDL cholesterol at target. On atorvastatin and ezetimibe. He has holosystolic murmur at the left sternal border as well as at the apex radiating to the axilla. We will repeat echocardiogram to reassess mitral valve and tricuspid valve. Blood pressure is elevated. I have advised him to increase her lisinopril to 20 mg once a day. We will get records from [facility]. Follow-up with us in 3 months. Thank you for allowing me to participate in the care of your patient. Please feel free to contact me if you have any questions. Orders: Orders CA echo transthoracic complete Today R01.1 - Cardiac murmur, unspecified Medications: New lisinopril 20 mg PO DAILY 90 tabs 3RF R01.1 - Cardiac murmur, unspecified Discontinued lisinopril Discontinued Reason: None 10 mg PO DAILY 90 tabs 1RF Coding Level of Care Code New Pt Level 4 (10111) Diagnoses Hypertension I10 Systolic murmur R01.1 Myocardial infarct I21.9 CPT Codes EKG - CPT: 35230-[id number], Complete ([id number])
== END 2023-10-21 15:07 | disposition home or self-care (01) ==
PROVIDERS: PCP Nurse Practitioner Family; Visit Provider Internal Medicine Cardiovascular Disease
DX: I10 Essential (primary) hypertension (principal); R01.1 Cardiac murmur, unspecified; I21.9 Acute myocardial infarction, unspecified
CPT/HCPCS: 93010; 99204

== ENCOUNTER → 2023-10-21 14:36 | Outpatient (BNVA) | payer MEDICARE, SELFPAY | PROVIDERS: PCP Nurse Practitioner Family; Visit Provider Internal Medicine Cardiovascular Disease | DX: I10 Essential (primary) hypertension (principal); R01.1 Cardiac murmur, unspecified; I25.2 Old myocardial infarction | CPT/HCPCS: 93005; 99202 ==

== ENCOUNTER → 2023-11-09 07:58 | Outpatient (REF) | payer MEDICARE, SELFPAY ==
--- NOTE | 2023-11-09 08:00 | CA_ITS ---
Transthoracic Echocardiogram Patient (Last, First, Middle): Jaime Chapin, Gender: Male Date of : 1960 Age: 63 Procedure Date: 11/09/2023 Procedure Type: Transthoracic Echocardiogram Location: OP Height: 167.64 cm Weight: 97.98 kg BSA: 2.07 m2 Heart Rate: bpm BP: 118 / 56 mmHg Dot Net Developer: PADMINI Referring MD: Gio Benavides MD Picture Painter: Gio Benavides MD Symptoms: R01.1 - Cardiac murmur, unspecified Study Quality: Adequate ECG Rhythm: Sinus Conclusions: - 1. Mildly reduced LV ejection fraction 45-50% with mild LVH with regional wall motion abnormality consistent with underlying coronary artery disease 2. Severely dilated left atrium 3. At least moderate mitral regurgitation, could be underestimated due to eccentricity 4. Normal RV systolic pressure 5. No gross pericardial effusion 6. Upper limits of normal ascending aortic size Findings Left Ventricle Normal left ventricular cavity size. There is mildly increased left ventricular wall thickness. The left ventricular systolic function is mildly decreased. The visually estimated ejection fraction is between 45-50%. Spectral Doppler is indicative of a normal filling pattern. Wall Motion Rest Echo Findings The inferolateral wall, the basal inferior, and mid inferior segments are akinetic. All other scored wall segments showed normal motion. Atria The left atrium is severely dilated. Interatrial shunt cannot be excluded. The right atrium is mildly dilated. Aortic Valve Normal aortic valve structure and function. There is no aortic valve stenosis. There is no aortic valve regurgitation. Mitral Valve There is mild anterior and posterior mitral leaflet thickening. The posterior mitral leaflet has restricted mobility. There is moderate mitral valve regurgitation. The mitral regurgitation jet is directed posteriorly. There is no mitral valve stenosis. Pulmonic Valve The pulmonic valve is likely normal. There is trace pulmonic valve regurgitation. Tricuspid Valve Normal tricuspid valve structure. There is mild tricuspid valve regurgitation. Normal right atrial pressure. There is no evidence of pulmonary hypertension. Great Vessels All visible segments of the aorta are normal in size. The pulmonary artery was not well visualized. Venous The inferior vena cava is normal in size and collapses greater than 50% with inspiration. Pericardium/Pleural There is no evidence of pericardial effusion. Prior Study Comparison Changes noted compared to prior study. LV systolic function is mildly reduced and mitral regurgitation appears to be worse. Delays and reporting due to technical issues Recommendations, Care & Conclusions Consider a ALONA if clinically appropriate. Measurements 2D Linear Measurements IVSd: 1.25 0.6-0.9/0.6-1.0 cm LVIDd: 5.14 3.9-5.3/4.2-5.9 cm LVIDd Index: 2.48 2.4-3.2/2.2-3.1 cm/m2 LVIDs: 3.80 2.0-3.6 cm LVPWd: 1.21 0.7-1.1 cm Ao Root: 3.60 2.1-3.5 cm LA Diam: 5.40 2.7-3.8/3.0-4.0 cm LAIDs Index: 2.61 1.5-2.3 cm/m2 LV Mass: 315.31 67-162/88-224 g LV Mass Index: 152.32 43-95/49-115 g/m2 LVOT Diam: 2.20 3.0+(-)1.3 cm Mitral Valve MV VTI: 0.29 MV Pk Riley: 1.22 MV Mn Riley: 0.56 MV Pk Grad: 6.00 MV Mn Grad: 2.00 MV Pk E: 0.90 MV PK A: 0.60 MV Decel Time: 145.00 E/A: 1.50 E'Lateral: 9.79 E'Medial: 9.79 E/E' Med: 9.20 E/E' Lat: 9.20 PHT: 42.00 MVA PHT: 5.24 MVA Continuity: 2.43 Decel Glascock: 6.23 MR Vol - PW Dopp: 39.33 MR VTI: 1.71 MR ERO: 23.00 MR Alias Riley: 0.36 MR RAD: 0.70 Aortic Valve AoV Pk Riley: 1.08 AoV Mn Riley: 0.71 AoV VTI: 0.24 AoV Pk Grad: 5.00 Aov Mn Grad: 2.00 KALYN Cont.VTI: 3.04 LVOT LVOT Pk Riley: 0.92 LVOT Mn Riley: 0.53 LVOT VTI: 0.19 LVOT Pk Grad: 3.00 LVOT Mn Grad: 1.00 LVOT Diam: 2.20 LVOT Area: 3.80 Diastolic Function MV Pk E: 0.90 MV Pk A: 0.60 E/A: 1.50 E'Medial: 9.79 E/E' Med: 9.20 E' Laterial: 9.79 E/E' Lat: 9.20 Tricuspid Valve TR Pk Riley: 2.76 TR Pk Grad: 30.00 RA Press: 3.00 RVSP: 33.00 Great Vessels Aorta Ao Root-2D: 3.60 2.0-3.7 cm Ao Asc: 3.50 2.1-3.4 cm Pulmonary Valve PV Pk Riley: 0.89 Peak PV Grad: 3.00 Updated in Other Vendor System with Status of Final Miguel Angel Howe MD electronically signed on 11/12/2023 1:06:31 PM with status of Final
== END ==
LOC: HO.CARD 07:58
PROVIDERS: PCP Nurse Practitioner Family; Visit Provider Internal Medicine Cardiovascular Disease
DX: R01.1 Cardiac murmur, unspecified (principal)
CPT/HCPCS: 93306

== ENCOUNTER → 2023-11-09 08:00 | Outpatient (BNV) | payer MEDICARE, SELFPAY | PROVIDERS: PCP Nurse Practitioner Family; Visit Provider Internal Medicine Cardiovascular Disease | DX: I34.0 Nonrheumatic mitral (valve) insufficiency (principal); I36.1 Nonrheumatic tricuspid (valve) insufficiency | CPT/HCPCS: 93306 ==

== ENCOUNTER 2023-12-07 09:14 | Outpatient (AMB) | payer MEDICARE, SELFPAY ==
[2023-12-07 09:42] VITALS: BP 140/60; PULSE 69; BMI 34.1
--- NOTE | 2023-12-07 09:42 | A.OFFVIS_ITS ---
Intake Vital Signs 12/07/23 09:42 Height 5 ft 6 in Weight 211 lb 3.245 oz BMI 34.1 BP 140/60 H Blood Pressure Location Lt brachial Position Sitting Pulse 69 Pulse Source Pulse Oximeter Intake Visit Reasons: f/up Intake Note: pt its here for a f/up, pt states that he its doing fine. Civil Drafting Technician Required: No Accompanied by: Self / Same As Patient Allergies No Known Allergies [No Known Allergies*] Allergy (Unverified 03/24/23 13:06) HEPARIN COMBINATION Allergy (Unknown, Uncoded 03/24/23 13:06) Unknown Heparin Combination Allergy (Unknown, Uncoded 03/24/23 13:06) Anaphylaxis Medication List - Last Reconciled 12/07/23 by Gio Benavides MD amlodipine 10 mg PO DAILY aspirin 81 mg PO DAILY atorvastatin 80 mg PO DAILY clopidogrel 75 mg PO DAILY ezetimibe 10 mg PO DAILY latanoprost 0.005% 1 drp ophthalmic (eye) BEDTIME lisinopril 20 mg PO DAILY metoprolol tartrate 25 mg PO BID HPI HPI Comments History of Present Illness Details 63-year-old gentleman who is here for 1s t office visit. In 2015 he presented with dyspnea and palpitations to [facility] and based on his report he was transferred to [facility] for acute [place]. he had primary PCI performed. He said he was given heparin and unfortunately had a reaction to heparin and developed blood clots which I think was JAMES. We do not have a lot of details of that and we will request records. He said his did CPR and eventually he was in the ICU for 38 days. He has a midline sternotomy scar and I do not know exact details currently. In any case he has recovered since then and has been doing well. He has no chest pains or shortness of breath. Blood pressure is mildly elevated. He is diabetic. He had echocardiography August 2022 which showed inferior inferolateral wall motion abnormality with mild mitral valve regurgitation. RV function was normal. 12/07/2023: He returns for follow-up. Janis regan had echocardiography which showed EF 45-50% with moderate mitral valve regurgitation. Posterior mitral valve leaflet appeared to be restricted which I think is related to previous circumflex infarct. I have reviewed his angiography as well as his hospital course at [facility]. He had massive pulmonary embolism for which she required thrombectomy surgically. Clinically, he has been stable. Denying any chest pain or shortness of breath. No congestive heart failure symptoms. [facility] Medical History (Updated 12/07/23 @ 13:24 by Gio Benavides MD) Proteinuria Fatty liver Cardiogenic shock Myocardial infarct CKD (chronic kidney disease) Hyperparathyroidism Heparin induced thrombocytopenia CRI (chronic renal insufficiency) Pulmonary embolism Coronary artery disease Renal insufficiency Hyperlipidemia Hypertension Diabetes Surgical History Stented coronary artery History of open heart surgery Family History Father Unknown family medical history Mother HTN (hypertension) Other Substance use disorder Social History Housing: Other Patient Tobacco Use Status: Never used Tobacco e-Cigarette/Vaping Use: Never Used Second Hand Smoke Exposure: Yes Current occupational status: retired Cognitive needs: No Hearing needs: No Vision needs: No Review of Systems Const Denies chills, Denies fatigue, Denies fever(s), Denies frequent falls, Denies weakness, Denies weight gain and Denies weight loss ENT Denies dizziness Card Denies chest pain, Denies leg edema, Denies lightheadedness, Denies palpitations, Denies dyspnea and Denies dyspnea on exertion Resp Denies cough, Denies dyspnea and Denies dyspnea on exertion GI Denies hematochezia Musc Denies abnormal gait, Denies muscle weakness, Denies numbness, Denies radiating pain into limb and Denies tingling Neuro Denies abnormal gait, Denies dizziness, Denies frequent falls, Denies numbness, Denies tingling and Denies weakness Endo Denies fatigue and Denies palpitations Physical Exam Vital Signs: Last Vital Signs Pulse 69 12/07/23 09:42 BP 140/60 H 12/07/23 09:42 BMI result Body Mass Index 34.1 GENERAL APPEARANCE: in no acute distress, pleasant. NECK: no carotid bruit, no jugular venous distention. SKIN: no suspicious lesions, warm and dry. HEART: Regular rate and rhythm. Holosystolic murmur left sternal border and at the apex radiating to axilla. LUNGS: clear to auscultation bilaterally. ABDOMEN: soft, nontender. EXTREMITIES: no edema. PERIPHERAL PULSES: equal. NEUROLOGIC: No gross deficits, AAO X 3 Assessment & Plan Assessment & Plan (1) Hypertension: Code(s): I10 - Essential (primary) hypertension (2) Stable angina: Code(s): I20.89 - Other forms of angina pectoris (3) Mitral regurgitation: Code(s): I34.0 - Nonrheumatic mitral (valve) insufficiency Plan Pleasant 63 year gentleman who is here for follow-up. He was seen in October 2023 for the 1st time. He had previous circumflex STEMI with primary PCI. He also had massive pulmonary embolism requiring surgical thrombectomy. His exam was consistent with mitral regurgitation his echocardiography has shown moderate mitral valve regurgitation with severe left atrial dilatation. Clinically he is asymptomatic. Changing lisinopril to Entresto. I have advised him to hold lisinopril for 2 days and then start taking Entresto as there is an interaction between Entresto and lisinopril. Also adding Jardiance 10 mg daily. I think his mitral regurgitation is related to the previous circumflex infarct and posterior leaflet restriction. We will watch him closely. Currently asymptomatic. Thank you for allowing me to participate in the care of your patient. Please feel free to contact me if you have any questions. Medications: New sacubitril-valsartan 49-51 mg (Entresto) 1 tab PO BID 60 tabs 3RF 30 days empagliflozin 10 mg PO DAILY 60 tabs 3RF Discontinued lisinopril Discontinued Reason: Doctor's Order 20 mg PO DAILY 90 tabs 3RF R01.1 - Cardiac murmur, unspecified Coding Level of Care Code Est Pt Level 4 (36623) Diagnoses Hypertension I10 Stable angina I20.89 Mitral regurgitation I34.0
== END 2023-12-07 10:19 | disposition home or self-care (01) ==
PROVIDERS: PCP Nurse Practitioner Family; Visit Provider Internal Medicine Cardiovascular Disease
DX: I10 Essential (primary) hypertension (principal); I20.89 Other forms of angina pectoris; I34.0 Nonrheumatic mitral (valve) insufficiency
CPT/HCPCS: 99214

== ENCOUNTER → 2023-12-07 09:14 | Outpatient (BNVA) | payer MEDICARE, SELFPAY | PROVIDERS: PCP Nurse Practitioner Family; Visit Provider Internal Medicine Cardiovascular Disease | DX: I20.89 Other forms of angina pectoris (principal); I10 Essential (primary) hypertension; I34.0 Nonrheumatic mitral (valve) insufficiency | CPT/HCPCS: 99212 ==

== ENCOUNTER 2023-12-31 08:04 | Outpatient (AMB) | payer MEDICARE, SELFPAY ==
--- NOTE | 2023-12-31 08:22 | MHC.OFFWIV ---
Intake Vital Signs 12/31/23 08:23 Height 5 ft 6 in BP 118/80 Blood Pressure Location Lt brachial Position Sitting Pulse 61 Pulse Source Pulse Oximeter Temp 98.2 F Temp Source Oral Pulse Oximetry (%) 97 Oxygen Delivery Method Room Air Intake Visit Reasons: EP RT knee swelling/pain (lobby) Intake Note: pt is here for right knee swelling and pain for the last few days and the pain kept him up last night pt denies any injury he says it is hot to the the touch Patient Tobacco Use Status: Never used Tobacco Allergies HEPARIN COMBINATION Allergy (Unknown, Uncoded 03/24/23 13:06) Unknown Heparin Combination Allergy (Unknown, Uncoded 03/24/23 13:06) Anaphylaxis HPI HPI Comments History of Present Illness Details 63 y/o male patient who presents to walking clinic with c/o right knee pain and swelling for few days now. This is a chronic issue, that comes and goes on its own. Denies injury or trauma. REPLACED BY [facility] Medical History (Updated 12/07/23 @ 13:24 by Gio Benavides MD) Proteinuria Fatty liver Cardiogenic shock Myocardial infarct CKD (chronic kidney disease) Hyperparathyroidism Heparin induced thrombocytopenia CRI (chronic renal insufficiency) Pulmonary embolism Coronary artery disease Renal insufficiency Hyperlipidemia Hypertension Diabetes Surgical History Stented coronary artery History of open heart surgery Family History Father Unknown family medical history Mother HTN (hypertension) Other Substance use disorder Social History Housing: Other Patient Tobacco Use Status: Never used Tobacco e-Cigarette/Vaping Use: Never Used Second Hand Smoke Exposure: Yes Current occupational status: retired Cognitive needs: No Hearing needs: No Vision needs: No Review of Systems Const All systems reviewed & are unremarkable except as noted in HPI and below Physical Exam Vital Signs: Last Vital Signs Temp 98.2 F 12/31/23 08:23 Pulse 61 12/31/23 08:23 BP 118/80 12/31/23 08:23 Pulse Ox 97 12/31/23 08:23 Oxygen Delivery Method Room Air 12/31/23 08:23 Const General: comfortable and no acute distress Orientation/consciousness: patient oriented x3 Neuro General: patient oriented x3 Extrem Right lower extremity: knee Details: tenderness Location: of the patella Details: medially and swelling Location: of the patella Psych Speech and movement: Normal speech and movement present Attitude: cooperative Assessment & Plan Assessment & Plan (1) Osteoarthritis of right knee: Code(s): M17.11 - Unilateral primary osteoarthritis, right knee Qualifiers: Osteoarthritis type: unspecified Qualified Code(s): M17.11 - Unilateral primary osteoarthritis, right knee Plan: - RICE - Applied Knee Brace - F/U with PCP if not better. Medications: New acetaminophen 1,000 mg (2 x 500 mg) PO Q6H PRN 60 caps 0RF pain (scale score 7-10) M17.11 - Unilateral primary osteoarthritis, right knee prednisone 50 mg PO DAILY 5 tabs 0RF 5 days M17.11 - Unilateral primary osteoarthritis, right knee Coding Level of Care Code Est Pt Level 3 (27341) Diagnoses Osteoarthritis of right knee, unspecified osteoarthritis type M17.11 Osteoarthritis type: unspecified Time Spent (min) 15
[2023-12-31 08:23] VITALS: BP 118/80; PULSE 61; TEMP 36.8; O2SAT 97
== END 2023-12-31 10:32 | disposition home or self-care (01) ==
PROVIDERS: PCP Nurse Practitioner Family; Visit Provider Nurse Practitioner Family
DX: M17.11 Unilateral primary osteoarthritis, right knee (principal)
CPT/HCPCS: 99213

== ENCOUNTER 2024-02-24 09:51 | Outpatient (AMB) | payer MEDICARE, SELFPAY ==
[2024-02-24 10:06] VITALS: BP 110/72; PULSE 63; O2SAT 96; BMI 33.7
--- NOTE | 2024-02-24 10:06 | MHC.OFFVIS ---
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 Waxer Required: No Accompanied by: Self / Same As Patient Allergies HEPARIN COMBINATION Allergy (Unknown, Uncoded 03/24/23 13:06) Unknown Heparin Combination Allergy (Unknown, Uncoded 03/24/23 13:06) Anaphylaxis Medication List - Last Reconciled 02/24/24 by Gio Benavides MD acetaminophen 1,000 mg (2 x 500 mg) PO Q6H PRN amlodipine 10 mg PO DAILY aspirin 81 mg PO DAILY atorvastatin 80 mg PO DAILY clopidogrel 75 mg PO DAILY empagliflozin 10 mg PO DAILY ezetimibe 10 mg PO DAILY latanoprost 0.005% 1 drp ophthalmic (eye) BEDTIME metoprolol tartrate 25 mg PO BID prednisone 50 mg PO DAILY 5 days sacubitril-valsartan 49-51 mg (Entresto) 1 tab PO BID 30 days HPI Comments Details: 64-year-old gentleman who is here for 1st office visit. In 2015 he presented with dyspnea and palpitations to [facility] and based on his report he was transferred to [facility] for acute ID. he had primary PCI performed. He said he was given heparin and unfortunately had a reaction to heparin and developed blood clots which I think was JAMES. We do not have a lot of details of that and we will request records. He said his did CPR and eventually he was in the ICU for 38 days. He has a midline sternotomy scar and I do not know exact details currently. In any case he has recovered since then and has been doing well. He has no chest pains or shortness of breath. Blood pressure is mildly elevated. He is diabetic. He had echocardiography August 2022 which showed inferior inferolateral wall motion abnormality with mild mitral valve regurgitation. RV function was normal. 12/07/2023: He returns for follow-up. He had echocardiography which showed EF 45-50% with moderate mitral valve regurgitation. Posterior mitral valve leaflet appeared to be restricted which I think is related to previous circumflex infarct. I have reviewed his angiography as well as his hospital course at [facility]. He had massive pulmonary embolism for which she required thrombectomy surgically. Clinically, he has been stable. Denying any chest pain or shortness of breath. No congestive heart failure symptoms. 02/24/24: He is here for follow-up. He continues to be asymptomatic. Doing well and feeling better since been on Entresto and Jardiance. He is saying that he is breathing easier and feeling a difference although he did not complain to me previously about any shortness of breath. No signs of heart failure. [facility], LAT[facility] Medical History (Updated 12/07/23 @ 13:24 by Gio Benavides MD) Proteinuria Fatty liver Cardiogenic shock Myocardial infarct CKD (chronic kidney disease) Hyperparathyroidism Heparin induced thrombocytopenia CRI (chronic renal insufficiency) Pulmonary embolism Coronary artery disease Renal insufficiency Hyperlipidemia Hypertension Diabetes Surgical History Stented coronary artery History of open heart surgery Family History Father Unknown family medical history Mother HTN (hypertension) Other Substance use disorder Social History Housing: Other Patient Tobacco Use Status: Never used Tobacco e-Cigarette/Vaping Use: Never Used Second Hand Smoke Exposure: Yes Current occupational status: retired Cognitive needs: No Hearing needs: No Vision needs: No Review of Systems Const Denies chills, Denies fatigue, Denies fever(s), Denies frequent falls, Denies weakness, Denies weight gain and Denies weight loss ENT Denies dizziness Card Denies chest pain, Denies leg edema, Denies lightheadedness, Denies palpitations, Denies dyspnea and Denies dyspnea on exertion Resp Denies cough, Denies dyspnea and Denies dyspnea on exertion GI Denies hematochezia Musc Denies abnormal gait, Denies muscle weakness, Denies numbness, Denies radiating pain into limb and Denies tingling Neuro Denies abnormal gait, Denies dizziness, Denies frequent falls, Denies numbness, Denies tingling and Denies weakness Endo Denies fatigue and Denies palpitations Physical Exam Vital Signs: Last Vital Signs Pulse 63 02/24/24 10:06 BP 110/72 02/24/24 10:06 Pulse Ox 96 02/24/24 10:06 BMI result Body Mass Index 33.7 GENERAL APPEARANCE: in no acute distress, pleasant. NECK: no carotid bruit, no jugular venous distention. SKIN: no suspicious lesions, warm and dry. HEART: Regular rate and rhythm. No murmur at baseline but with handgrip he had grade 2/6 apical holosystolic murmur. LUNGS: clear to auscultation bilaterally. ABDOMEN: soft, nontender. EXTREMITIES: no edema. PERIPHERAL PULSES: equal. NEUROLOGIC: No gross deficits, AAO X 3 Assessment & Plan Assessment & Plan (1) Mitral regurgitation: Code(s): I34.0 - Nonrheumatic mitral (valve) insufficiency Category: Medical (2) Stable angina: Code(s): I20.89 - Other forms of angina pectoris Category: Medical (3) Hypertension: Code(s): I10 - Essential (primary) hypertension Category: Medical Plan Very pleasant 64 year gentleman who is here for follow-up. Previously has circumflex PCI with borderline to mild LV dysfunction. Clinically not in heart failure. Blood pressure is well controlled. Completely asymptomatic. He has moderate mitral valve regurgitation. He is severe LA dilation. Mitral valve regurgitation mechanism is likely posterior leaflet restriction due to circumflex infarct but ALONA would be required to better understand the anatomy. He also has severe LA dilation which can lead to atrial functional MR. In any case he is clinically stable and has no symptoms. He is on good medications currently. We will closely monitor him. If he developed any heart failure symptoms or atrial arrhythmia then we will reassess mitral regurgitation most likely with a ALONA at that stage. Thank you for allowing me to participate in the care of your patient. Please feel free to contact me if you have any questions. Coding Level of Care Code Est Pt Level 4 (98594) Diagnoses Mitral regurgitation I34.0 Stable angina I20.89 Hypertension I10
== END 2024-02-24 10:25 | disposition home or self-care (01) ==
PROVIDERS: PCP Nurse Practitioner Family; Visit Provider Internal Medicine Cardiovascular Disease
DX: I34.0 Nonrheumatic mitral (valve) insufficiency (principal); I20.89 Other forms of angina pectoris; I10 Essential (primary) hypertension
CPT/HCPCS: 99214

== ENCOUNTER → 2024-02-24 09:51 | Outpatient (BNVA) | payer MEDICARE, SELFPAY | PROVIDERS: PCP Nurse Practitioner Family; Visit Provider Internal Medicine Cardiovascular Disease | DX: I34.0 Nonrheumatic mitral (valve) insufficiency (principal); I20.89 Other forms of angina pectoris; I10 Essential (primary) hypertension | CPT/HCPCS: 99212 ==

== ENCOUNTER 2024-05-17 12:57 | Outpatient (AMB) | payer MEDICARE, SELFPAY ==
[2024-05-17 13:27] VITALS: BP 118/70; PULSE 67; O2SAT 97; BMI 33.5
--- NOTE | 2024-05-17 13:27 | AM.OFFVISMDC ---
Intake Vital Signs 05/17/24 13:27 Height 5 ft 6 in Weight 207 lb 8 oz BMI 33.5 BP 118/70 Blood Pressure Location Rt brachial Position Sitting Pulse 67 Pulse Source Pulse Oximeter Pulse Oximetry (%) 97 Oxygen Delivery Method Room Air Intake Visit Reasons: AWV G0438 Intake Note: pt is here for medicare wellness visit today General Surgery Physician Assistant Required: No Accompanied by: Self / Same As Patient Allergies HEPARIN COMBINATION Allergy (Unknown, Uncoded 05/17/24 13:27) Unknown Heparin Combination Allergy (Unknown, Uncoded 05/17/24 13:27) Anaphylaxis Do you need a note to return to daycare/school/sports/work: No PFSH Medical History (Updated 12/07/23 @ 13:24 by Gio Benavides MD) Proteinuria Fatty liver Cardiogenic shock Myocardial infarct CKD (chronic kidney disease) Hyperparathyroidism Heparin induced thrombocytopenia CRI (chronic renal insufficiency) Pulmonary embolism Coronary artery disease Renal insufficiency Hyperlipidemia Hypertension Diabetes Surgical History Stented coronary artery History of open heart surgery Family History Father Unknown family medical history Mother HTN (hypertension) Other Substance use disorder Social History Housing: Other Patient Tobacco Use Status: Never used Tobacco e-Cigarette/Vaping Use: Never Used Second Hand Smoke Exposure: Yes Current occupational status: retired Cognitive needs: No Hearing needs: No Vision needs: No Questionnaire PHQ-9 Over the last 2 weeks, how often have you been bothered by any of the following problems? 1. Little interest or pleasure in doing things: not at all 2. Feeling down, depressed, or hopeless: not at all 3. Trouble falling or staying asleep, or sleeping too much: not at all 4. Feeling tired or having little energy: not at all 5. Poor appetite or overeating: not at all 6. Feeling bad about yourself - or that you are a failure or have let yourself or your family down: not at all 7. Trouble concentrating on things, such as reading the newspaper or watching television: not at all 8. Moving or speaking so slowly that other people could have noticed. Or the opposite - being so fidgety or restless that you have been moving around a lot more than usual: not at all 9. Thoughts that you would be better off or of hurting yourself in some way: not at all Total score: 0 Depression Screening Interpretation: Negative Depression Screening Done: Yes 09609 - PHQ-9 Billing: Yes Source: Developed by Drs. Choco Vizcaino, Zeny Alford, Kimo Camara and colleagues, with an educational edi from [employer]. SUKHI-7 AMB Questionnaire SUKHI-7 Date SUKHI - 7 assessed: 05/17/24 Feeling nervous, anxious, or on edge: 0 = Not at all Not being able to stop or control worryin = Not at all Worrying too much about different things: 0 = Not at all Trouble relaxin = Not at all Being so restless that it is hard to sit still: 0 = Not at all Becoming easily annoyed or irritable: 0 = Not at all Feeling afraid as if something awful might happen: 0 = Not at all Total SUKHI-7 score (0-4 normal; 5-9 mild; 10-14 moderate; 15-21 severe): 0 Source: Developed by Drs. Choco Vizcaino, Zeny Alford, Kimo Camara and colleagues, with an educational edi from [employer]. SUKHI-7 Assessment Billing SUKHI-7 Assessment Tool: SUKHI-7 Assessment 62740 AUDIT C Alcohol Use Questionnaire (AUDIT-C) 1. How often do you have a drink containing alcohol?: Never 3. How often do you have six or more drinks on one occasion?: Never Total Score: 0 Score Reviewed/Action Taken: Yes Physical Exam Vital Signs: Last Vital Signs Pulse 67 05/17/24 13:27 BP 118/70 05/17/24 13:27 Pulse Ox 97 05/17/24 13:27 Oxygen Delivery Method Room Air 05/17/24 13:27 BMI result Body Mass Index 33.5 Quality Reporting (2019) Depression/Bipolar (159/160/161/177) PHQ-9: Total score: 0 Coding Additional Codes SUKHI-7 Assessment Billing - SUKHI-7 Assessment Tool: SUKHI-7 Assessment 30033 ([id number])
--- NOTE | 2024-05-17 13:37 | MHC.PC.OV ---
Vital Signs 05/17/24 13:27 Height 5 ft 6 in Weight 207 lb 8 oz BMI 33.5 BP 118/70 Blood Pressure Location Rt brachial Position Sitting Pulse 67 Pulse Source Pulse Oximeter Pulse Oximetry (%) 97 Oxygen Delivery Method Room Air Intake Visit Reasons: AWV G0438 Allergies HEPARIN COMBINATION Allergy (Unknown, Uncoded 05/17/24 13:27) Unknown Heparin Combination Allergy (Unknown, Uncoded 05/17/24 13:27) Anaphylaxis Medication List - Last Reconciled 05/17/24 by TERESITA Reyes acetaminophen 1,000 mg (2 x 500 mg) PO Q6H PRN amlodipine 10 mg PO DAILY aspirin 81 mg PO DAILY atorvastatin 80 mg PO DAILY clopidogrel 75 mg PO DAILY empagliflozin 10 mg PO DAILY ezetimibe 10 mg PO DAILY latanoprost 0.005% 1 drp ophthalmic (eye) BEDTIME metoprolol tartrate 25 mg PO BID sacubitril-valsartan 49-51 mg (Entresto) 1 tab PO BID 30 days Tobacco use date assessed: 03/24/23 HPI AWV G0438 HPI Details Not an AWV. Pt is here for a PE. Will order labs. Colon screen is up to date. Onychomycosis noted, will refer to podiatry. Due for PSA next month, will order. Denies dribbling with urination, weak stream, and frequent nocturia. Pt follows up with cardiology. [facility] Medical History (Updated 05/17/24 @ 13:45 by TERESITA Reyes) Proteinuria Fatty liver Cardiogenic shock Myocardial infarct CKD (chronic kidney disease) Hyperparathyroidism Heparin induced thrombocytopenia CRI (chronic renal insufficiency) Pulmonary embolism Coronary artery disease Renal insufficiency Hyperlipidemia Hypertension Surgical History Stented coronary artery History of open heart surgery Family History Father Unknown family medical history Mother HTN (hypertension) Other Substance use disorder Social History Housing: Other Patient Tobacco Use Status: Never used Tobacco e-Cigarette/Vaping Use: Never Used Second Hand Smoke Exposure: Yes Current occupational status: retired Cognitive needs: No Hearing needs: No Vision needs: No Questionnaire PHQ-9 Over the last 2 weeks, how often have you been bothered by any of the following problems? 1. Little interest or pleasure in doing things: not at all 2. Feeling down, depressed, or hopeless: not at all 3. Trouble falling or staying asleep, or sleeping too much: not at all 4. Feeling tired or having little energy: not at all 5. Poor appetite or overeating: not at all 6. Feeling bad about yourself - or that you are a failure or have let yourself or your family down: not at all 7. Trouble concentrating on things, such as reading the newspaper or watching television: not at all 8. Moving or speaking so slowly that other people could have noticed. Or the opposite - being so fidgety or restless that you have been moving around a lot more than usual: not at all 9. Thoughts that you would be better off or of hurting yourself in some way: not at all Total score: 0 Source: Developed by Drs. Choco Vizcaino, Zeny Alford, Kimo Camara and colleagues, with an educational edi from [employer]. Thrive Questionnaire Date Thrive assessed: 05/13/21 I am a: Patient What is your living situation today?: I have a steady place to live Within the past 12 months, did the food you bought not last and you didn't have the money to get more?: Often true Within the past 12 months, did you worry whether your food would run out before you got money to buy more?: Never true Do you have trouble paying for medicines?: No Do you have trouble getting transportation to medical appointments?: No Do you have trouble paying your heating and electricity bill?: No Do you have trouble taking care of your child, family member or friend?: No Do you have trouble with day-to-day activities such as bathing, preparing meals, shopping, managing finances, etc.?: No Are you currently unemployed and looking for a job?: No Are you interested in more education?: No Please select the resources that you would like help with: Housing/Longterm Currently or been in a relationship where the following occur: No concerns reported THRIVE Score: 1 AUDIT C Alcohol Use Questionnaire (AUDIT-C) 1. How often do you have a drink containing alcohol?: Never Total Score: 0 SUKHI-7 AMB Questionnaire SUKHI-7 Date SKUHI - 7 assessed: 05/17/24 Feeling nervous, anxious, or on edge: 0 = Not at all Not being able to stop or control worryin = Not at all Worrying too much about different things: 0 = Not at all Trouble relaxin = Not at all Being so restless that it is hard to sit still: 0 = Not at all Becoming easily annoyed or irritable: 0 = Not at all Feeling afraid as if something awful might happen: 0 = Not at all Total SUKHI-7 score (0-4 normal; 5-9 mild; 10-14 moderate; 15-21 severe): 0 Source: Developed by Drs. Choco Vizcaino, Zeny Alford, Kimo Camara and colleagues, with an educational edi from [employer]. SUKHI-7 Assessment Billing SUKHI-7 Assessment Tool: SUKHI-7 Assessment 24576 Review of Systems Const Denies chills and Denies fever(s) Eyes Denies blurry vision ENT Denies vertigo, Denies dizziness and Denies sore throat Card Denies chest pain at rest, Denies chest pain with activity, Denies diaphoresis, Denies dyspnea and Denies dyspnea on exertion Resp Denies cough, Denies dyspnea, Denies dyspnea on exertion and Denies wheezing GI Denies abdominal pain, Denies melena, Denies hematochezia, Denies constipation, Denies diarrhea and Denies loose stools Denies hematuria Musc Denies numbness and Denies tingling Skin/Breast Denies lesions Neuro Denies vertigo, Denies dizziness, Denies numbness and Denies tingling Psych Denies anxiety, Denies depression, Denies homicidal ideation, Denies suicidal ideation and Denies other (substance abuse) Aller/Immun Denies wheezing Physical exam (Primary Care) Vital Signs: Last Vital Signs Pulse 67 05/17/24 13:27 BP 118/70 05/17/24 13:27 Pulse Ox 97 05/17/24 13:27 Oxygen Delivery Method Room Air 05/17/24 13:27 BMI result Body Mass Index 33.5 Tobacco/Smoking Status: Tobacco use Status Tobacco use date assessed 03/24/23 05/17/24 13:39 Patient Tobacco Use Status Never used Tobacco 05/17/24 13:39 e-Cigarette/Vaping Use Never Used 05/17/24 13:39 PHQ-9: PHQ-9 Score PHQ-9: Total score 0 05/17/24 13:39 Thrive Assessment: Date of Thrive Assessment Date Thrive assessed 05/13/21 05/17/24 13:39 Currently or been in a relationship where the following occur: No concerns reported Const General: cooperative Nutritional Appearance: well nourished Orientation/consciousness: patient oriented x3 HENMT Head: Yes normal to inspection, Yes normocephalic and Yes atraumatic Ears: TM's normal bilaterally Eyes General: appearance normal, both eyes and all related structures Alignment and Position: alignment normal and position normal Neck Neck: Yes normal visual inspection and Yes no lymphadenopathy Thyroid: Thyroid normal Resp Effort & Inspection: normal respiratory effort Auscultation: clear to auscultation bilaterally Cardio Rate: regular rate Rhythm: regular rhythm Heart sounds: S1 normal heart sound present, S2 normal heart sound present and no murmurs GI Palpation (GI): Soft to palpation and nontender Auscultation: normal bowel sounds Male General Exam: Yes normal external exam Penis: normal penis Scrotum: scrotum normal, testes descended bilaterally and no inguinal hernias Testes: no testicular mass Skin Rashes: no rashes Neuro General: patient oriented x3, moves all extremities, no focal motor deficits and deep tendon reflexes 2+ bilaterally Romberg Test: Negative Extrem Other: onychomycosis noted bilat Psych Appearance: grossly normal Mental Status: mental status grossly normal Speech and movement: Normal speech and movement present Affect: normal affect Attitude: cooperative Thought process: Normal thought process present Thought content: Normal thought content present Insight: Good insight present (Psych) Judgement: Good judgement present (Psych) Assessment and Plan Assessment & Plan (1) Physical exam: Code(s): Z00.00 - Encounter for general adult medical examination without abnormal findings Plan: Labs ordered (2) Screening PSA (prostate specific antigen): Code(s): Z12.5 - Encounter for screening for malignant neoplasm of prostate Plan: PSA ordered (3) Onychomycosis: Code(s): B35.1 - Tinea unguium Plan: Referred to podiatry Plan The patient agreed to the use of a director of medical services for this encounter. Scribed for Rodger Yeung, [facility]- by Naila Mccord director of medical services, on 05/17/2024 at 13:40 EST. Orders: Orders Complete Blood Count Auto Diff Today Z00.00 - Encounter for general adult medical examination without abnormal findings TSH reflex Free T4 Today Z00.00 - Encounter for general adult medical examination without abnormal findings UA CC w/rflx Micro + Cult Today Z00.00 - Encounter for general adult medical examination without abnormal findings Lipid Panel Today Z00.00 - Encounter for general adult medical examination without abnormal findings Prostate Specific Antigen Scr Today Z12.5 - Encounter for screening for malignant neoplasm of prostate Comprehensive Gary. Panel Fast Today Z00.00 - Encounter for general adult medical examination without abnormal findings Referrals Podiatry Referral B35.1 - Tinea unguium Medications: New sildenafil administer 30 minutes to 4 hours before activity 25 mg PO DAILY PRN 10 tabs 2RF sexual activity Coding Level of Care Code Est Pt Prev Care >65y(09974) Diagnoses Physical exam Z00.00 Screening PSA (prostate specific antigen) Z12.5 Onychomycosis B35.1 Additional Codes SUKHI-7 Assessment Billing - SUKHI-7 Assessment Tool: SUKHI-7 Assessment 06843 ([id number])
== END 2024-05-17 13:55 | disposition home or self-care (01) ==
PROVIDERS: PCP Nurse Practitioner Family; Visit Provider Nurse Practitioner Family
DX: Z00.00 Encounter for general adult medical examination without abnormal findings (principal); Z12.5 Encounter for screening for malignant neoplasm of prostate; B35.1 Tinea unguium
CPT/HCPCS: 99397

== ENCOUNTER 2024-05-23 11:19 | Outpatient (REF) | payer MEDICARE, SELFPAY ==
[2024-05-23 13:05] LABS: MANUAL DIFF FLAG NO
[2024-05-23 13:11] LABS: Appearance Urine Clear; Color Urine Yellow; Glucose Urine UA >=1000 mg/dL (Negative); Leukocyte Esterase Urine Negative (Negative); Nitrite Urine Negative (Negative); PH 5.5 (5.0-9.0); UMIC TRIGGER UACC YES; Urine Blood Negative (Negative); Urine Ketones Negative (Negative); Urine Protein 30 (1+) mg/dL (Neg-Trace)
[2024-05-23 13:15] LABS: Bacteria Urine None Seen (None Seen); Hyaline Casts Urine 0-2 /LPF (0-2); RBC Urine 0-2 /HPF (0-2); Squamous Epithelial Cell Urine 0-2 /HPF (0-2); WBC Urine 0-5 /HPF (0-5)
[2024-05-23 13:16] LABS: Basophils Percent Auto 0.3 % (0-2); Eosinophils Absolute Auto 0.1 X10*3/uL (0.0-0.4); Eosinophils Percent Auto 0.8 % (0-4); Hematocrit 52.3 % (42.0-52.0); Hemoglobin 16.8 g/dl (14.0-18.0); Imm Gran Abs Auto 0.03 X10*3/uL (0.00-0.03); Imm Gran Pct Auto 0.5 % (0.0-0.4); Lymphocytes Absolute Auto 1.1 X10*3/uL (1.2-4.9); Lymphocytes Percent Auto 18.9 % (20-40); Mean Corpuscular HGB Conc 32.1 g/dl (31.0-36.0); Mean Corpuscular Hemoglobin 28.2 pg (27.0-33.0); Mean Corpuscular Volume 87.9 fL (80.0-98.0); Monocytes Absolute Auto 0.5 X10*3/uL (0.1-1.2); Monocytes Percent Auto 8.5 % (2-11); Neutrophils Absolute Auto 4.3 x10*3/uL (2.0-8.3); Platelet Count 194 X10*3/uL (160-400); Red Blood Count 5.95 X10*6/uL (4.60-5.80)
[2024-05-23 13:37] LABS: Alanine Aminotransferase 34 U/L (0-40); Albumin Level 4.2 g/dL (3.5-5.0); Alkaline Phosphatase 56 U/L (39-117); Anion Gap 13 (12-20); Aspartate Amino Transferase 24 U/L (5-37); Bilirubin Total 0.8 mg/dL (0.0-1.0); Blood Urea Nitrogen 15 mg/dL (9-16); Calcium 9.6 mg/dL (8.4-10.2); Carbon Dioxide 26 mmol/L (22-29); Chloride 106 mmol/L (96-108); Cholesterol 116 mg/dL (<200); Estimated Glomerular Filt Rate 59; Glucose Fasting 100 mg/dL (60-99); HDL Cholesterol 42 mg/dL (>40); LDL Cholesterol Calculated 63 mg/dL (<100); Potassium 4.6 mmol/L (3.3-5.1); Sodium 140 mmol/L (135-145); Total Protein 7.3 g/dL (6.5-8.0); Triglycerides 56 mg/dL (<150)
[2024-05-23 13:44] LABS: Prostate Specific Antigen Scr 0.65 ng/mL (<0.05-4.0); TSH reflex Free T4 2.11 uIU/mL (0.32-4.0)
== END 2024-05-23 11:20 | disposition home or self-care (01) ==
LOC: HO.HMGCLDS 11:19
PROVIDERS: PCP Nurse Practitioner Family; Visit Provider Nurse Practitioner Family
DX: Z00.00 Encounter for general adult medical examination without abnormal findings (principal); Z12.5 Encounter for screening for malignant neoplasm of prostate
CPT/HCPCS: 36415; 80053; 80061; 81001; 81003; 84153; 84443; 85025

== ENCOUNTER 2024-06-27 10:53 | Outpatient (AMB) | payer MEDICARE, SELFPAY ==
[2024-06-27 10:55] VITALS: BP 130/64; PULSE 67; BMI 32.9
--- NOTE | 2024-06-27 10:55 | A.OFFVIS_ITS ---
Vital Signs 06/27/24 10:55 Height 5 ft 6 in Weight 204 lb 2.369 oz BMI 32.9 BP 130/64 Blood Pressure Location Lt brachial Position Sitting Pulse 67 Pulse Source Pulse Oximeter Intake Visit Reasons: 4m follow up Intake Note: 4 mth f/up [employer] Attendant Required: No Accompanied by: Self / Same As Patient Allergies HEPARIN COMBINATION Allergy (Unknown, Uncoded 05/17/24 13:27) Unknown Heparin Combination Allergy (Unknown, Uncoded 05/17/24 13:27) Anaphylaxis Medication List - Last Reconciled 06/27/24 by Gio Benavides MD acetaminophen 1,000 mg (2 x 500 mg) PO Q6H PRN amlodipine 10 mg PO DAILY aspirin 81 mg PO DAILY atorvastatin 80 mg PO DAILY clopidogrel 75 mg PO DAILY empagliflozin 10 mg PO DAILY ezetimibe 10 mg PO DAILY latanoprost 0.005% 1 drp ophthalmic (eye) BEDTIME metoprolol tartrate 25 mg PO BID sacubitril-valsartan 49-51 mg (Entresto) 1 tab PO BID 30 days sildenafil 25 mg PO DAILY PRN HPI Comments Details: 64-year-old gentleman who is here for 1st office visit. In 2015 he presented with dyspnea and palpitations to [facility] and based on his report he was transferred to [facility] for acute CT. he had primary PCI performed. He said he was given heparin and unfortunately had a reaction to heparin and developed blood clots which I think was JAMES. We do not have a lot of details of that and we will request records. He said his did CPR and eventually he was in the ICU for 38 days. He has a midline sternotomy scar and I do not know exact details currently. In any case he has recovered since then and has been doing well. He has no chest pains or shortness of breath. Blood pressure is mildly elevated. He is diabetic. He had echocardiography August 2022 which showed inferior inferolateral wall motion abnormality with mild mitral valve regurgitation. RV function was normal. 12/07/2023: He returns for follow-up. He had echocardiography which showed EF 45-50% with moderate mitral valve regurgitation. Posterior mitral valve leaflet appeared to be restricted which I think is related to previous circumflex infarct. I have reviewed his angiography as well as his hospital course at [facility]. He had massive pulmonary embolism for which she required thrombectomy surgically. Clinically, he has been stable. Denying any chest pain or shortness of breath. No congestive heart failure symptoms. 02/24/24: He is here for follow-up. He continues to be asymptomatic. Doing well and feeling better since been on Entresto and Jardiance. He is saying that he is breathing easier and feeling a difference although he did not complain to me previously about any shortness of breath. No signs of heart failure. 06/27/2024: He is here for follow-up. Continues to be active and has no e xertional symptoms. No chest discomfort. No symptoms signs of heart failure. Blood pressure is well controlled. EKGs reviewed. Echo was in 10/31/2023 when EF was 45-50% with moderate mitral valve regurgitation. There was akinesis of inferolateral wall, basal inferior and mid inferior wall. Taking medications regularly. [facility] Medical History (Updated 05/17/24 @ 13:45 by Rodger Yeung, [facility]-) Proteinuria Fatty liver Cardiogenic shock Myocardial infarct CKD (chronic kidney disease) Hyperparathyroidism Heparin induced thrombocytopenia CRI (chronic renal insufficiency) Pulmonary embolism Coronary artery disease Renal insufficiency Hyperlipidemia Hypertension Surgical History Stented coronary artery History of open heart surgery Family History Father Unknown family medical history Mother HTN (hypertension) Other Substance use disorder Social History Housing: Other Patient Tobacco Use Status: Never used Tobacco e-Cigarette/Vaping Use: Never Used Second Hand Smoke Exposure: Yes Current occupational status: retired Cognitive needs: No Hearing needs: No Vision needs: No Review of Systems Const Denies chills, Denies fatigue, Denies fever(s), Denies frequent falls, Denies weakness, Denies weight gain and Denies weight loss ENT Denies dizziness Card Denies chest pain, Denies leg edema, Denies lightheadedness, Denies palpitations, Denies dyspnea and Denies dyspnea on exertion Resp Denies cough, Denies dyspnea and Denies dyspnea on exertion GI Denies hematochezia Musc Denies abnormal gait, Denies muscle weakness, Denies numbness, Denies radiating pain into limb and Denies tingling Neuro Denies abnormal gait, Denies dizziness, Denies frequent falls, Denies numbness, Denies tingling and Denies weakness Endo Denies fatigue and Denies palpitations Physical Exam Vital Signs: Last Vital Signs Pulse 67 06/27/24 10:55 BP 130/64 06/27/24 10:55 BMI result Body Mass Index 32.9 GENERAL APPEARANCE: in no acute distress, pleasant. NECK: no carotid bruit, no jugular venous distention. SKIN: no suspicious lesions, warm and dry. HEART: Regular rate and rhythm. No murmur at baseline but with handgrip he had grade 2/6 apical holosystolic murmur. LUNGS: clear to auscultation bilaterally. ABDOMEN: soft, nontender. EXTREMITIES: no edema. PERIPHERAL PULSES: equal. NEUROLOGIC: No gross deficits, AAO X 3 Office Procedures EKG Details: Sinus rhythm 70 beats per minute, normal axis, nonspecific ST changes, QTC 416 millisecond. [id number], Complete Assessment & Plan Assessment & Plan (1) Mitral regurgitation: Code(s): I34.0 - Nonrheumatic mitral (valve) insufficiency Category: Medical (2) Stable angina: Code(s): I20.89 - Other forms of angina pectoris Category: Medical Plan [age] year gentleman presenting for follow-up. He has known history of previous acute coronary syndrome with left circumflex artery PCI with mild LV dysfunction. He has moderate mitral valve regurgitation by echocardiography in October 2023. He has no symptoms clinically. ECG is showing sinus rhythm. We are going to repeat echocardiography in October and we will see him after that in follow-up. We discussed about symptoms of progressive mitral valve regurgitation and if he developed any symptoms he will reach out to us. Same medications for now. Thank you for allowing me to participate in the care of your patient. Please feel free to contact me if you have any questions. Orders: Orders CA echo transthorac w con 3 Months I34.0 - Nonrheumatic mitral (valve) insufficiency Coding Level of Care Code Est Pt Level 4 (24178) Diagnoses Mitral regurgitation I34.0 Stable angina I20.89 CPT Codes EKG - CPT: 60456-[id number], Complete ([id number])
== END 2024-06-27 12:43 | disposition home or self-care (01) ==
PROVIDERS: PCP Nurse Practitioner Family; Visit Provider Internal Medicine Cardiovascular Disease
DX: I34.0 Nonrheumatic mitral (valve) insufficiency (principal); I20.89 Other forms of angina pectoris
CPT/HCPCS: 93010; 99214

== ENCOUNTER → 2024-06-27 10:53 | Outpatient (BNVA) | payer MEDICARE, SELFPAY | PROVIDERS: PCP Nurse Practitioner Family; Visit Provider Internal Medicine Cardiovascular Disease | DX: I34.0 Nonrheumatic mitral (valve) insufficiency (principal); I20.89 Other forms of angina pectoris | CPT/HCPCS: 93005; 99212 ==

== ENCOUNTER 2024-08-15 08:54 | Outpatient (REF) | payer MEDICARE, SELFPAY ==
[2024-08-15 11:22] LABS: Alanine Aminotransferase 49 U/L (0-40); Albumin Level 4.3 g/dL (3.5-5.0); Alkaline Phosphatase 60 U/L (39-117); Aspartate Amino Transferase 33 U/L (5-37); Bilirubin Direct 0.3 mg/dL (0.0-0.5); Bilirubin Total 0.8 mg/dL (0.0-1.0); Total Protein 7.5 g/dL (6.5-8.0)
== END 2024-08-15 08:55 | disposition home or self-care (01) ==
LOC: HO.HMGCLDS 08:54
PROVIDERS: PCP Nurse Practitioner Family; Visit Provider Student in an Organized Health Care Education/Training Program
DX: B35.1 Tinea unguium (principal)
CPT/HCPCS: 36415; 80076

== ENCOUNTER → 2024-09-26 08:45 | Outpatient (REF) | payer MEDICARE, SELFPAY ==
--- NOTE | 2024-09-26 08:47 | CA_ITS ---
Transthoracic Echocardiogram Patient (Last, First, Middle): Jaime Chapin, Gender: Male Date of : 1960 Age: 64 Procedure Date: 09/26/2024 Procedure Type: Transthoracic Echocardiogram Location: OP Height: 167. cm Weight: 95.26 kg BSA: 2.04 m2 Heart Rate: 60 bpm BP: 105 / 70 mmHg Auto Suspension And Steering Mechanic: MARILIA Referring MD: Gio Benavides MD Symptoms: I34.0 - Nonrheumatic mitral (valve) insufficiency Study Quality: Adequate ECG Rhythm: Bradycardia Conclusions: - Normal left ventricular cavity size. There is normal left ventricular wall thickness. The left ventricular systolic function is low normal. The visually estimated ejection fraction is between 50-55%. - E/E prime ratio is between 8 and 15 consistent with indeterminate filling pressures. - Normal right ventricular cavity size and systolic function. - The left atrium is severely dilated. Findings Left Ventricle Normal left ventricular cavity size. There is normal left ventricular wall thickness. The left ventricular systolic function is low normal. The visually estimated ejection fraction is between 50-55%. Regional wall motion abnormalities can not be excluded due to suboptimal endocardial definition. Abnormal diastolic function is noted. Spectral Doppler is indicative of a pseudonormal filling pattern. E/E prime ratio is between 8 and 15 consistent with indeterminate filling pressures. Right Ventricle Normal right ventricular cavity size and systolic function. Atria The left atrium is severely dilated. The right atrium is mildly dilated. Aortic Valve There is a normal trileaflet aortic valve. There is mild thickening of the aortic valve. There is no aortic valve stenosis. There is no aortic valve regurgitation. Mitral Valve The mitral valve appears normal. There is trace mitral valve regurgitation. There is no mitral valve stenosis. Pulmonic Valve The pulmonic valve is normal. There is no pulmonic valve regurgitation. Tricuspid Valve Normal tricuspid valve structure. There is trace tricuspid valve regurgitation. Normal right atrial pressure. There is no evidence of pulmonary hypertension. Great Vessels All visible segments of the aorta are normal in size. The visualized portions of the pulmonary artery and branches are normal. Venous The inferior vena cava is normal in size and collapses greater than 50% with inspiration. Pericardium/Pleural There is no evidence of pericardial effusion. Prior Study Comparison Changes noted compared to prior study dated: 11/09/2023. LVEF 50-55%, trace MR (from moderate MR) Measurements 2D Linear Measurements IVSd: 1.05 0.6-0.9/0.6-1.0 cm LVIDd: 5.09 3.9-5.3/4.2-5.9 cm LVIDd Index: 2.50 2.4-3.2/2.2-3.1 cm/m2 LVIDs: 4.03 2.0-3.6 cm LVPWd: 0.96 0.7-1.1 cm LA Diam: 5.30 2.7-3.8/3.0-4.0 cm LAIDs Index: 2.60 1.5-2.3 cm/m2 LV Mass: 234.45 67-162/88-224 g LV Mass Index: 114.93 43-95/49-115 g/m2 LVOT Diam: 2.00 3.0+(-)1.3 cm 2D Systolic Function EF 4C: 66.00 >55% EF 2C: 72.10 >55% EF BiP: 69.10 >55% Mitral Valve MV Pk E: 0.80 MV PK A: 0.67 MV Decel Time: 186.00 E/A: 1.20 E'Lateral: 10.90 E'Medial: 6.85 E/E' Med: 11.70 E/E' Lat: 7.30 PHT: 54.00 MVA PHT: 4.07 Decel Edgar: 4.32 MR Vol - PW Dopp: 14.22 MR VTI: 1.58 MR ERO: 9.00 MR Alias Riley: 0.39 MR RAD: 0.40 Aortic Valve AoV Pk Riley: 0.92 AoV Mn Riley: 0.68 AoV VTI: 0.21 AoV Pk Grad: 3.00 Aov Mn Grad: 2.00 KALYN Cont.VTI: 2.84 LVOT LVOT Pk Riley: 0.91 LVOT Mn Riley: 0.58 LVOT VTI: 0.19 LVOT Pk Grad: 3.00 LVOT Mn Grad: 2.00 LVOT Diam: 2.00 LVOT Area: 3.14 Diastolic Function MV Pk E: 0.80 MV Pk A: 0.67 E/A: 1.20 E'Medial: 6.85 E/E' Med: 11.70 E' Laterial: 10.90 E/E' Lat: 7.30 Right Ventricle TAPSE (mm): 19.40 TVS' Riley: 12.20 Tricuspid Valve TR Pk Riley: 2.00 TR Pk Grad: 16.00 RA Press: 3.00 RVSP: 19.00 Great Vessels Aorta Sinus of Valsalva: 3.70 2.0-3.5 cm Ao Asc: 3.50 2.1-3.4 cm Pulmonary Valve PV Pk Riley: 0.87 Peak PV Grad: 3.00 Updated in Other Vendor System with Status of Final Gio Benavides MD electronically signed on 09/26/2024 8:43:18 PM with status of Final
--- OUTSIDE RECORDS SUMMARY | 2024-09-26 08:52 | XMS_ITS ---
Author Organization [facility] Address [address] [place] [address] Care Team Providers Care Head Greenskeeper Name Role Phone Rodger Fox Primary Care Provider Unav ailable Yanna Canas Unavailable [phone] Encounters Encounter Location Date Provider Diagnosis [address] [address] 09/26/2024 Yanna Canas Plan Of Treatment Next Appt Details Provider Name:Yanna khan, 09/26/2024 11:15:00 AM, [address] [place] [address], [phone], Progress Notes * Jaime CHAPINDOB:1960 (64 yo M)Acc No.[id number]:09/26/2024 Progress Notes Patient:?Jaime CHAPIN Provider:?Yanna Canas DPM :1960???Age:64 Y???Sex:Male Rodolfo e:09/26/2024 Address:[address] [place], [place] [id number] Pcp:YORDY Alcocer Subjective: * Chief Complaints: * ??? * Medical History:? Objective: * Vitals:? Assessment: Plan: * Treatment: * Images: * The named appointment provid er may or may not be the originator of this progress note, and it is not deemed complete until electronically signed by the appointment provider. Sign off status: Pending * Provider:?Yanna Canas DPM Date:?1 11/27/2023 Generated for Marichuy rangel/Ekaterina/Lisa on:?09/26/2024 08:52 AM EST
--- OUTSIDE RECORDS SUMMARY | 2024-09-26 08:53 | XMS_ITS | Patient Health Record ---
Author Organization [facility] Address [address] [place] [address] Care Team Providers Care Foot Caster Name Role Phone Rodger Fox Primary Care Provider Yanna Padron Unavailable [phone] Allergies Allergen (clinical drug ingredient) Drug/Non Drug Allergy documented on EMR Reaction Allergy Type Onset Date Status heparin Heparin Unknown Drug Allergy Active Reason For Referral No Information Medications Medication SIG (Take, Route, Fr equency, Duration) Notes Start Date End Date Status Jardiance Active Entresto Active Clopidogrel Bisulfate Active Latanoprost Active Metoprolol Succinate Active amLODIPine Besylate Active Atorvastatin Calcium Active Ciclopirox 0.77 % 1 application Instrument Tester ally Once a day for 30 days Active Ezetimibe Active Social History Tobacco Use: Social History Observation Description Date Details (start date - stop date) Never Smoker NA - NA Tobacco Use/Smoking Question Answer Notes Are you a: nonsmoker Additional Findings: Tobacco Non-User Current no n-smoker Alcohol Screen Question Answer Notes Did you have a drink containing alcohol in the p ast year? No Points 0 Interpretation Negative Tobacco use other than smoking: Question Answer Notes Are you an other tobacco user? No Vital Signs Height 5 ft 6 in in 08/15/2024 Weight 209 lbs 08/15/2024 BMI 33.73 kg/m2 08/15/2024 Encounters Encounter Location Date Provider Diagnosis [facility] [address] [place] [address] 08/15/2024 Yanna Canas Pain in right toe(s) M79.674 ; Onychomycosis B35.1 and Pain in left toe(s) M79.675 [facility] [address] [place] [address] 07/15/2024 [facility] Canas [facility] [address] [place] [address] 08/11/2024 Yanna Canas Assessments Encounter Date Diagnosis (ICD Code) Assessment Notes Treatment Notes Treatment Clinical Notes Section Notes 08/15/2024 Pain in right toe(s) (ICD-10 - M79.674) 08/15/2024 Onychomycosis (ICD-10 - B35.1) Patient Educated with: FUNGUS NAIL INFECTIONS.pdf (FUNGUS NAIL INFECTIONS.pdf ) 08/15/2024 Pain in left toe(s) (ICD-10 - M79.675) Plan Of Treatment Pending Test Test Name Order Date *Liver Function Test (LFT) 08/15/2024 Next Appt Details Provider Name:Yanna khan, 09/26/2024 11:15:00 AM, [address] [place] [address], [phone], Insurance Providers Payer Name Payer Address Payer Phone Subscriber Number Group Number Insured Name Patient Relationship to Insured Coverage Start Date Coverage End Date [employer] [address] [place] [phone] [id number] Jaime Chapin Self - patient is the insured Medical (General) History Medical History History ICD Code High Blood Pressure Transfusions Surgical History Surgery Date(Month/Year) heart surgery unspecified 2015
--- OUTSIDE RECORDS SUMMARY | 2024-09-26 08:53 | XMS_ITS ---
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 Generated for Printi ng/Faxing/eTransmitting on:?09/26/2024 08:52 AM EST
--- OUTSIDE RECORDS SUMMARY | 2024-09-26 08:53 | XMS_ITS ---
Author Organization [facility] Address [address] [facility] [place] [address] Care Team Providers Care Precast Worker Name Role Phone Rodger Fox Primary Care Provider Evonnev Yanna Tirado Unavailable [phone] Allergies Allergen (clinical drug ingredient) Drug/Non Drug Allergy documented on EMR Reaction Allergy Type Onset Date Status heparin Heparin Unknown Drug Allergy Active REASON FOR VISIT Pcp-05/04, Fungal Nails Medications Medication SIG (Take, Route, Fr equency, Duration) Notes Start Date End Date Status Latanoprost Active Metoprolol Succinate Active amLODIPine Besylate Active Atorvastatin Calcium Active Ezetimibe Active Jardiance Active Entresto Active Clopidogrel Bisulfate Active Ciclopirox 0.77 % 1 application Supervisor [employer] ally Once a day for 30 days Active Social History Tobacco Use: Social History [...] 08/15/2024 Encounters Encounter Location Date Provider Diagnosis [facility] [address] [place] [address] 08/15/2024 Yanna Canas Pain in right toe(s) M79.674 ; Onychomycosis B35.1 and Pain in left toe(s) M79.675 Assessments Encounter Date Diagnosis (ICD Code) Assessment Notes Treatment Notes Treatment Clinical Notes Section Notes 08/15/2024 Pain in right toe(s) (ICD-10 - M79.674) 08/15/2024 Onychomycosis (ICD-10 - B35.1) Patient Educated with: FUNGUS NAIL INFECTIONS.pdf (FUNGUS NAIL INFECTIONS.pdf ) 08/15/2024 Pain in left toe(s) (ICD-10 - M79.675) Plan Of Treatment Medication Medication Name Sig Start Date Stop Date Notes Ciclopirox 0.77 % 1 application Supervisor [employer] ally Once a day for 30 days Treatment Notes Assessment Notes Onychomycosis Patient Educated wit h: FUNGUS NAIL INFECTIONS.pdf (FUNGUS NAIL INFECTIONS.pdf) Pending Test Test Name Order Date *Liver Function Test (LFT) 08/15/2024 Next Appt Details Follow Up: 6 weeks, Reason: Provider Name:Yanna khan, 09/26/2024 11:15:00 AM, [address] [place] [address], [phone], Progress Notes * TAVARES JaimeDOB:1960 (64 yo M)Acc No.[id number]:08/15/2024 Progress Notes Patient:?Jaime Chapin Provider:?Yanna Canas DPM :1960???Age:64 Y???Sex:Male Rodolfo e:08/15/2024 Address:[address] [place] [address] Pcp:YORDY Alcocer Subjective: * Chief Complaints: * ???Pcp-05/04Fungal Nails * HPI: ???Painful Nails:?Nature:?aching, tender, discolored, thick.?Location:?Both feet, all toenails.?Duration:?several years.?Course:?worse.?Aggravated by:?shoegear causing difficulty standing/walking.?Treatments:?none, Debridement, topical treatment, toenails removed by master control technician years ago,?was not successful.? * ROS:?General/Constitutional:?Nausea?denies.?Vomiting?denies.?Hunger Thirst?denies.?Loss appetite?denies.?Chills?denies.?Fatigue?denies.?Fever?denies.?Night Sweats?denies.?Unexplained weight loss?denies.?Unexplained weight gain?denies.?HEENTM:?Dentures?denies.?Dizziness?denies.?Glasses/contacts?admits.?Retinopathy?de nies.?Blurred/double vision?denies.?TMJ?denies.?Discharge/drainage?denies.?Implants?denies.?Sore throat?denies.?Dental implants?denies.?Hard of hearing ?denies.?Difficulty chewing/swallowing/speaking?denies.?Nose bleeds?denies.?Sore mouth?denies.?Respiratory:?On Oxygen?denies.?Pneumonia/pleurisy?denies.?Bronchitis?denies.?Emphysema?denies.?C oughing?denies.?Cough blood?denies.?Shortness of breath?denies.?Wheezing?denies.?Cardiovascular:?Pacemaker?denies.?MVP?denies.?WPW?denies.?CHF?denies.?Heart attack?admits.?Septal defect?denies.?Rapid beat?denies.?Chest pain ?denies.?Atrial Fib.?denies.?Murmur/Palpitations?denies.?Gastrointestinal:?Hemorrhoids?denies.?Stomach/Abdominal pain?denies.?Dark blood stool?denies.?Irritable bowel ?denies.?Constipation?denies.?Diarrhea?denies.?Hematology:?Swelling?denies.?Clots?denies.?Varicose Veins?denies.?Bruising?denies.?Bleeding problem?denies.?Genitourinary:?Blood urine?denies.?Frequent/Painfu/urination/bladder control?denies.?Kidney stones?denies.?Infection (UTI)?denies.?Nephropathy?denies.?sex trans dis (STD)?denies.?Prostate?denies.?Musculoskeletal:?Hammertoes?denies.?Bunions?denies.?Back Pain?denies.?Muscle Cramps/ Resting?denies.?Muscle cramps / walking?denies.?Generalized aches and pains?denies.?Weakness?denies.?Integ.:?Tan?denies.?Scars?denies.?Corns/calluses?denies.?Ingrown nails?denies.?Painful nails?admits.?Open Sores?denies.?Rashes?denies.?Neurologic:?Difficulty sleeping?denies.?Brain disorder?denies.?Numbness?denies.?Balance trouble?denies.?Confusion?denies.?Fainting/blackouts?denies.?Tingling?denies.?Tr emors?denies.? * Medical History:? * Surgical History:?heart surg rich unspecified 2015 * Hospitalization/Major Diagno stic Procedure:?Denies Past Hospitalization * Family History:?Mother: dorota regan.?Father: .? * Social History:?Tobacco Use:?Tobacco Use/Smoking?Are you a:?nonsmoker ?Additional Findings: Tobacco Non-User?Current non-smoker ?Tobacco use other than smoking?Are you an other tobacco user??No ???Drugs/Alcohol:?Drugs?Have you used drugs other than those for medical reasons in the past 12 months??No ?Alcohol Screen?Did you have a drink containing alcohol in the past year??No ?Points?0 ?Interpretation?Negative ???Miscellaneous:?no Caffeine. ?Children: yes. ?no Exercise. ?Marital status: . 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 * Medications:?TakingClopidogr el Bisulfate Entresto Jardiance Ezetimibe Atorvastatin Calcium amLODIPine Besylate Metoprolol Succinate Latanoprost Medication List reviewed and reconciled with the patientTaking Clopidogrel Bisulfate Taking Entresto Taking Jardiance Taking Ezetimibe Taking Atorvastatin Calcium Taking amLODIPine Besylate Taking Metoprolol Succinate Taking Latanoprost Medication List reviewed and reconciled with the patient * Allergies:?Heparinyes[Allerg ies Verified] Objective: * Vitals:?Ht: 5 ft 6 in, Wt:20 9, BMI:33.73, Shoe size: 9, Ht-cm: 167.64 cm, Wt-k.8 kg. * Examination: ???General Examination: ?GENERAL APPEARANCE:?Reveals a pleasant, alert, well-nourished, well- developed, well hydrated individual, who demonstrates proper attention to hygiene/body habitus, and is in no acute distress, Pt serves as own?historian for office visit today.?ORIENTED:?person, place, and time.?Dermatologic: ?SKIN FINDINGS:?Skin exam reveals normal texture, elasticity, and turgor. There are no masses. The interspaces are clear.?Nails: ?NAILS are:?Elongated, overgrown, dystrophic, lytic, greater than 3mm thick, discolored and friable with crumbly malodorous subungual debris, with pain on palpation, 1-5 B/L.?Neurological: ?SENSORY:?Neurological exam reveals intact sensorium, pain sensation normal, vibration sensation intact, pinprick sensation is normal in the lower extremities, Pt denies, anesthesia, burning, paresthesia, tingling, B/L.?DEEP TENDON REFLEXES:?Achilles, 2/4, B/L.?Vascular: ?DP PULSES(B):?2/4, B/L.?PT PULSES(B):?2/4, B/L.?CAPILLARY FILL TIME:?immediate, all digits, B/L.?TROPHIC CONDITION-TEXTURE/ELASTICITY/TURGOR/HAIR GROWTH(B):?normal, B/L.?TEMPERTURE GRADIENT(C):?warm to cool, proximal to distal, B/L.?PIGMENTATION:?normal, B/L.?EDEMA(C):?absent, B/L.?Orthopedic: ?MUSCLE STRENGTH:?5/5 all groups in a symmetrical fashion , B/L.? Assessment: * Assessment: 1.?Pain in right toe(s) - M7 9.674?2.?Onychomycosis - B35.1?3.?Pain in left toe(s) - M79.675? Plan: * Treatment: * Procedure Codes:? * Preventive Medicine:? ??Counseling:?Discussion:?-03: Office or other outpatient visit for the evaluation and management of a new patient, which required a medically appropriate history and/or examination and LOW level of DECISION MAKING for: 1 STABLE ACUTE UNCOMPLICATED PROBLEM, 2 OR MORE MINOR PROBLEMS, OR 1 STABLE CHRONIC PROBLEM, THAT POSE(S) A LOW RISK FOR MORBIDITY/MORTALITY. The visit on the day of the encounter encompassed interpreting the data and educating the patient as to the nature of their condition, treatment options available according to their individual PMH, meds, allergies, and overall health/living conditions, as well as any potential risks or complications that may occur from a failure to adhere to, and participate in, the recommended course of therapy. The discussion included a complete verbal, and/or written explanation of the examination results, any x-rays taken, the proposed diagnosis, and outline of the treatment plan. A schedule for future care needs was also explained. The patient verbalized an understanding of the instructions at this time and agreed to be an active participant in their treatment. If the patient should think of any questions or concerns after the visit, I have encouraged the patient to call the office.?Fungal Nail Counseling:?The patient was counseled on the diagnosis, potential etiologies (including, but not limited to, environmental factors, genetic, immune deficiency), and the multiple treatment options for Onychomycosis. We discussed the risks and benefits of each option from performing no treatment, to ultraviolet light shoe treatment, to laser nail treatment, to applying topical antifungals, to taking oral antifungal medication, to surgical removal of the involved nail(s) with or without performing a matricectomy, or any combination thereof. We discussed the advantages and disadvantages of each of possible treatment and importance for adherence to all the recommended therapies for optimum success. This includes the necessity for weekly emery board self nail home debridements, and control the nail and skin environment as much as possible by only using a fresh, dry pair of shoes/socks each day, as well as keeping the skin as dry as possible through the use of sprays/powders if necessary. The patient was instructed to discard the emery board after use to prevent reinfection of the involved nail(s). We discussed the mycological and visual clinical effectiveness of topical vs oral antifungal treatments as well as each ones potential side effects and/or any patient- specific medication interactions. We discussed the reasons behind the important requirement of regular liver function testing with oral antifungal therapy for safety. Patient questions regarding use, dosage, successful outcomes, blood tests, and possible pharmaceutical interactions were reviewed and the patient verbalized that all answers were clearly understood, The Pt prefers PO treatment, An LFT was ordered in preparation for Lamisil prescription therapy, Nail debridement performed extensively to reduce/remove overall nail length, girth, thickness, subungual debris, and necrotic tissue, by manual and electrical means through the use of a nail nipper and/or dremel, to more viable healthy nail plate or bed tissue. Silver nitrate used for any petechial bleeding as necessary, Ciclopirox 0.77 gel was Rxed. Apply as directed to nails twice daily.? * Follow Up:?6 weeks * Images: * Sign off status: Completed true * Provider:?Yanna Canas DPM Date:?10/15/2023 Generated for Marichuy rangel/Ekaterina/Lisa on:?09/26/2024 08:52 AM EST History and Physical Notes * HPI (History of Present Illness) Category Sub-Category Detail Notes Category Not es Painful Nails Aggravated by: shoegear causing difficulty standing/walking Course: worse Duration: several years Location: Both feet, all toena ils Nature: aching, tender, disc olored, thick Treatments: none, Debridement, t opical treatment, toenails removed by master control technician years ago, was not successful Examination Category Sub-Category Detail Notes Category Not es Neurological SENSORY: Neurological exa m reveals intact sensorium, pain sensation normal, vibration sensation intact, pinprick sensation is normal in the lower extremities, Pt denies, anesthesia, burning, paresthesia, tingling, B/L DEEP TENDON REFLEXES: Achilles, 2/4, B/L Dermatologic SKIN FINDINGS: Skin exam reveal s normal texture, elasticity, and turgor. There are no masses. The interspaces are clear Orthopedic MUSCLE STRENGTH: 5/5 all groups in a symm etrical fashion , B/L General Examination GENERAL APPEARANCE: Reveals a pleasant, alert, well- nourished, well-developed, well hydrated individual, who demonstrates proper attention to hygiene/body habitus, and is in no acute distress, Pt serves as own historian for office visit today ORIENTED: person, place, and t james Vascular DP PULSES(B): 2/4, B/L PT PULSES(B): 2/4, B/L CAPILLARY FILL TIME: immediate, all digi ts, B/L TEMPERTURE GRADIENT(C): warm to cool, pr oximal to distal, B/L TROPHIC CONDITION-TEXTURE/ELASTICITY/TURGOR/HAIR GROWTH(B): normal, B/L EDEMA(C): absent, B/L PIGMENTATION: normal, B/L Nails NAILS are: Elongated, overg rown, dystrophic, lytic, greater than 3mm thick, discolored and friable with crumbly malodorous subungual debris, with pain on palpation, 1-5 B/L
== END ==
LOC: HO.CARD 08:45
PROVIDERS: PCP Nurse Practitioner Family; Visit Provider Internal Medicine Cardiovascular Disease
DX: I34.0 Nonrheumatic mitral (valve) insufficiency (principal)
CPT/HCPCS: 93306

== ENCOUNTER → 2024-09-26 08:47 | Outpatient (BNV) | payer MEDICARE, SELFPAY | PROVIDERS: PCP Nurse Practitioner Family; Visit Provider Internal Medicine Cardiovascular Disease | DX: I51.7 Cardiomegaly (principal) | CPT/HCPCS: 93306 ==

== ENCOUNTER 2024-10-07 09:17 | Outpatient (REF) | payer MEDICARE, SELFPAY ==
[2024-10-07 13:48] LABS: Influenza A PCR NEGATIVE (Negative); Influenza B PCR NEGATIVE (Negative); Resp Syncy Virus RNA Qual PCR POSITIVE (Negative); SARS COV2 PCR INHOUSE NEGATIVE (Negative)
== END 2024-10-07 09:18 | disposition home or self-care (01) ==
LOC: HO.LNP 09:17
PROVIDERS: PCP Nurse Practitioner Family; Visit Provider Nurse Practitioner Family
DX: J06.9 Acute upper respiratory infection, unspecified (principal)
CPT/HCPCS: 0241U; 99212

== ENCOUNTER 2024-10-07 09:17 | Outpatient (AMB) | payer MEDICARE, SELFPAY ==
--- OUTSIDE RECORDS SUMMARY | 2024-10-07 09:20 | XMS_ITS ---
Author Organization [facility] Address [address] [place] [address] Care Team Providers Care Placement Interviewer Name Role Phone Rodger Fox Primary Care Provider Evonnev Yanna Tirado Unavailable [phone] Allergies Allergen (clinical drug ingredient) Drug/Non Drug Allergy documented on EMR Reaction Allergy Type Onset Date Status heparin Heparin Unknown Drug Allergy Active REASON FOR VISIT Pcp-05/04, Fungal Nails Medications Medication SIG (Take, Route, Fr equency, Duration) Notes Start Date End Date Status amLODIPine Besylate Active Atorvastatin Calcium Active Ciclopirox 0.77 % 1 application Cashier Wrapper ally Once a day for 30 days Active Latanoprost Active Metoprolol Succinate Active Ezetimibe Active Jardiance Active Entresto Active Clopidogrel Bisulfate Active Social History Tobacco Use: Social History [...] Signs Height 5 ft 6 in in 09/26/2024 Weight 209 lbs 09/26/2024 BMI 33.73 kg/m2 09/26/2024 Encounters Encounter Location Date Provider Diagnosis [facility] [address] [place] [address] 09/26/2024 Yanna Canas Pain in right toe(s) M79.674 ; Onychomycosis B35.1 and Pain in left toe(s) M79.675 Assessments Encounter Date Diagnosis (ICD Code) Assessment Notes Treatment Notes Treatment Clinical Notes Section Notes 09/26/2024 Pain in right toe(s) (ICD-10 - M79.674) 09/26/2024 Onychomycosis (ICD-10 - B35.1) Patient Educated with: FUNGUS NAIL INFECTIONS.pdf (FUNGUS NAIL INFECTIONS.pdf ) 09/26/2024 Pain in left toe(s) (ICD-10 - M79.675) Plan Of Treatment Treatment Notes Assessment Notes Onychomycosis Patient Educated wit h: FUNGUS NAIL INFECTIONS.pdf (FUNGUS NAIL INFECTIONS.pdf) Pending Test Test Name Order Date *Liver Function Test (LFT) 09/26/2024 Next Appt Details Follow Up: 2 Months, Reason: Provider Name:Ruth wood, 12/13/2024 09:15:00 AM, [address] [place] [address], [phone], Provider Name:Yanna khan, 02/23/2025 10:00:00 AM, [address] [place] [address], [phone], Progress Notes * Jaime CHAPINDOB:1960 (64 yo M)Acc No.[id number]:09/26/2024 Progress Notes Patient:?Jaime CHAPIN Provider:?Yanna Canas DPM :1960???Age:64 Y???Sex:Male Rodolfo e:09/26/2024 Address:[address] [place], [place] [id number] Pcp:YORDY Alcocer Subjective: * Chief Complaints: * ???Pcp-05/04Fungal Nails * HPI: ???Painful Nails:?Nature:?aching, tender, discolored, thick.?Location:?Both feet, all toenails.?Duration:?several years.?Course:?unchanged.?Aggravated by:?shoegear causing difficulty standing/walking.?Treatments:?topical ciclopirox- patient states he got his labs done but did not recieve oral lamisil.? * ROS:?General/Constitutional:?Nausea?denies.?Vomiting?denies.?Hunger Thirst?denies.?Loss appetite?denies.?Chills?denies.?Fatigue?denies.?Fever?denies.?Night Sweats?denies.?Unexplained weight loss?denies.?Unexplained [...] History:? * Surgical History:?heart surg rich unspecified 2016 * Hospitalization/Major Diagno stic Procedure:?Denies Past Hospitalization [...] alcohol in the past year??No ?Points?0 ?Interpretation?Negative ???Miscellaneous:?Caffeine: no. ?Children: yes. ?Exercise: no. ?Marital status: . 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 * Medications:?TakingClopidogr el Bisulfate Entresto Jardiance Ezetimibe Atorvastatin Calcium amLODIPine Besylate Metoprolol Succinate Latanoprost Ciclopirox 0.77 % Gel 1 application Externally Once a day Medication List reviewed and reconciled with the patientTaking Clopidogrel Bisulfate Taking Entresto Taking Jardiance Taking Ezetimibe Taking Atorvastatin Calcium Taking amLODIPine Besylate Taking Metoprolol Succinate Taking Latanoprost Taking Ciclopirox 0.77 % Gel 1 application Externally Once a day Medication List reviewed and reconciled with the patient * Allergies:?Heparinyes[Allerg ies Verified] Objective: * Vitals:?Ht:5 ft 6 in, Wt:209 , BMI:33.73, Shoe size:9, Ht-cm: 167.64 cm, Wt-k.8 kg. * Examination: [...] crumbly malodorous subungual debris, with pain on palpation,?, TA, T1, T2, T3, T4, T5, T6, T7, T8, T9, no evidence of proximal clearing.?Neurological: ?SENSORY:?Neurological exam reveals intact sensorium, pain sensation [...] Assessment: 1.?Pain in right toe(s) - M7 9.674???2.?Onychomycosis - B35.1 (Primary)???Specify :Acute problem, Uncomplicated (3)???3.?Pain in left toe(s) - M79.675??? Plan: * Treatment: * Procedure Codes:? * Preventive Medicine:? ??Counseling:?Discussion:?-13: Office or other outpatient visit for the evaluation and management of an established patient, which required a medically appropriate history [...] verbalized that all answers were clearly understood, the lab will be called today for LFT results. Once LFTs are obtained plan to inititate Lamisil if wnl..? * Follow Up:?2 Months * Images: * Sign off status: Completed true * Provider:Christoph Canas DPM Date:?1 11/27/2023 Generated for Marichuy rangel/Ekaterina/eTransmitting on:?10/07/2024 09:20 AM EST History and Physical Notes * HPI (History of Present Illness) Category Sub-Category Detail Notes Category Not es Painful Nails Aggravated by: shoegear causing difficulty standing/walking Course: unchanged Duration: several years Location: Both feet, all toena ils Nature: aching, tender, disc olored, thick Treatments: topical ciclopirox- patient states he got his labs done but did not recieve oral lamisil Examination Category Sub-Category Detail Notes Category Not [...] person, place, and t james Vascular DP PULSES (B): 2/4, B/L PT PULSES (B): 2/4, B/L CAPILLARY FILL TIME: immediate, all digi ts, B/L TEMPERTURE GRADIENT (C): warm to cool, p roximal to distal, B/L TROPHIC CONDITION-TEXTURE/ELASTICITY/TURGOR/HAIR GROWTH (B): normal, B/L EDEMA (C): absent, B/L PIGMENTATION: normal, B/L Nails NAILS are: Elongated, overg rown, dystrophic, lytic, greater than 3mm thick, discolored and friable with crumbly malodorous subungual debris, with pain on palpation, , TA, T1, T2, T3, T4, T5, T6, T7, T8, T9, no evidence of proximal clearing
--- OUTSIDE RECORDS SUMMARY | 2024-10-07 09:20 | XMS_ITS ---
Author Organization [facility] Address [address] [place] [address] Care Team Providers Care Tuber Helper Name Role Phone Rodger Fox Primary Care Provider Unav Yanna Tirado Unavailable [phone] REASON FOR VISIT Lab results Medications Medication SIG (Take, Route, Fr equency, Duration) Notes Start Date End Date Status Terbinafine HCl 250 MG 1 tablet Orally O nce a day for 30 days 09/29/2024 Active Encounters Encounter Location Date Provider Diagnosis [address] [address] 09/29/2024 Yanna Canas Plan Of Treatment Medication Medication Name Sig Start Date Stop Date Notes Terbinafine HCl 250 MG 1 tablet Orally O nce a day for 30 days 09/29/2024 Next Appt Details Provider Name:Ruth wood, 12/13/2024 09:15:00 AM, [address] [place] [address], [phone], Provider Name:Yanna khan, 02/23/2025 10:00:00 AM, [address] [place] [address], [phone], Progress Notes * Jaime CHAPINDOB:1960 (64 yo M)Acc No.[id number]:09/29/2024 Patient:?Jaime CHAPIN :1960???Age:64 Y???Sex:Male Address:[address] [place] [address] * Refills? Start Terbinafine HCl Tablet, 250 MG, Orally, 30 Tablet, 1 tablet, Once a day, 30 days, Refills=1 * true * Date:? Generated for Marichuy rangel/Ekaterina/Lisa on:?10/07/2024 09:20 AM EST
--- OUTSIDE RECORDS SUMMARY | 2024-10-07 09:20 | XMS_ITS ---
Author Organization [facility] Address [address] [facility] [place] [address] Care Team Providers Care Electrical Technician Name Role Phone Rodger Fox Primary Care Provider Evonnev Yanna Tirado Unavailable [phone] Allergies Allergen (clinical drug ingredient) Drug/Non Drug [...] Bisulfate Active Ciclopirox 0.77 % 1 application Newcomer Hostess ally Once a day for 30 days [...] 08/15/2024 Encounters Encounter Location Date Provider Diagnosis [facility] [address] [place] [address] 08/15/2024 Yanna Canas Pain in right toe(s) [...] Date Notes Ciclopirox 0.77 % 1 application Newcomer Hostess ally Once a day for 30 days Treatment Notes Assessment Notes Onychomycosis Patient Educated wit h: FUNGUS NAIL INFECTIONS.pdf (FUNGUS NAIL INFECTIONS.pdf) Pending Test Test Name Order Date *Liver Function Test (LFT) 08/15/2024 Next Appt Details Follow Up: 6 weeks, Reason: Provider Name:Ruth wood, 12/13/2024 09:15:00 AM, [address] [place] [address], [phone], Provider Name:Yanna khan, 02/23/2025 10:00:00 AM, [address] [place] [address], [phone], Progress Notes * Jaime CHAPINDOB:1960 (64 yo M)Acc No.[id number]:08/15/2024 Progress Notes Patient:?Jaime Chapin Provider:?Yanna Canas DPM :1960???Age:64 Y???Sex:Male Rodolfo e:08/15/2024 Address:[address] [place], [place] [id number] Pcp:YORDY Alcocer Subjective: * Chief Complaints: * ???Pcp-05/04Fungal Nails * HPI: ???Painful Nails:?Nature:?aching, tender, discolored, thick.?Location:?Both feet, all toenails.?Duration:?several years.?Course:?worse.?Aggravated by:?shoegear causing difficulty standing/walking.?Treatments:?none, Debridement, topical treatment, toenails removed by credit card control clerk years ago,?was not successful.? * ROS:?General/Constitutional:?Nausea?denies.?Vomiting?denies.?Hunger Thirst?denies.?Loss [...] ?no Exercise. ?Marital status: . 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 * Medications:?TakingClopidogr el Bisulfate Entresto Jardiance Ezetimibe [...] Provider:?Yanna Canas DPM Date:?10/15/2023 Generated for Marichuy rangel/Ekaterina/eTransmitting on:?10/07/2024 09:20 AM EST History and Physical Notes * HPI (History of Present Illness) Category Sub-Category Detail Notes Category Not es Painful Nails Aggravated by: shoegear causing difficulty standing/walking Course: worse Duration: several years Location: Both feet, all toena ils Nature: aching, tender, disc olored, thick Treatments: none, Debridement, t opical treatment, toenails removed by credit card control clerk years ago, was not successful Examination Category [...]
--- OUTSIDE RECORDS SUMMARY | 2024-10-07 09:21 | XMS_ITS | Patient Health Record ---
Author Organization [facility] tabitha [place] Address [address] [place] [address] Care Team Providers Care Front Desk Receptionist Name Role Phone Rodger Fox Primary Care Provider Yanna Padron Unavailable [phone] Allergies Allergen (clinical drug ingredient) Drug/Non Drug Allergy documented on EMR Reaction Allergy Type Onset Date Status heparin Heparin Unknown Drug Allergy Active Reason For Referral No Information Medications Medication SIG (Take, Route, Fr equency, Duration) Notes Start Date End Date Status amLODIPine Besylate Active Atorvastatin Calcium Active Ezetimibe Active Jardiance Active Ciclopirox 0.77 % 1 application Internal Affairs Investigator ally Once a day for 30 days Active Latanoprost Active Terbinafine HCl 250 MG 1 tablet Orally O nce a day for 30 days 09/29/2024 Active Metoprolol Succinate Active Entresto Active Clopidogrel Bisulfate Active Social [...] 09/26/2024 Encounters Encounter Location Date Provider Diagnosis [facility] [address] [facility] [place] [address] 08/15/2024 Yanna Canas Pain in right toe(s) M79.674 ; Onychomycosis B35.1 and Pain in left toe(s) M79.675 [facility] [address] 09/26/2024 Yannatomas Canas Pain in right toe(s) M79.674 ; Onychomycosis B35.1 and Pain in left toe(s) M79.[address] [address] 07/15/2024 [facility] [address] 08/11/2024 [facility] [address] 09/29/2024 Yanna Canas Assessments Encounter Date Diagnosis (ICD Code) Assessment Notes Treatment Notes Treatment Clinical Notes Section Notes 08/15/2024 Pain in right toe(s) (ICD-10 - M79.674) 08/15/2024 Onychomycosis (ICD-10 - B35.1) Patient Educated with: FUNGUS NAIL INFECTIONS.pdf (FUNGUS NAIL INFECTIONS.pdf ) 09/26/2024 Pain in right toe(s) (ICD-10 - M79.674) 09/26/2024 Onychomycosis (ICD-10 - B35.1) Patient Educated with: FUNGUS NAIL INFECTIONS.pdf (FUNGUS NAIL INFECTIONS.pdf ) 09/26/2024 Pain in left toe(s) (ICD-10 - M79.675) 08/15/2024 Pain in left toe(s) (ICD-10 - M79.675) Plan Of Treatment Pending Test Test Name Order Date *Liver Function Test (LFT) 08/15/2024 *Liver Function Test (LFT) 09/26/2024 Next Appt Details Provider Name:Ruth wood, 12/13/2024 09:15:00 AM, [address] [place] [address], [phone], Provider Name:Yanna khan, 02/23/2025 10:00:00 AM, [address] [place] [address], [phone], Insurance Providers Payer Name Payer Address Payer Phone Subscriber Number Group Number Insured Name Patient Relationship to Insured Coverage Start Date Coverage End Date Aetna [address] VITO Walker [phone] [id number] Jaime Chapin Self - patient is the insured Medical (General) History Medical History History ICD Code High Blood Pressure Transfusions Surgical History Surgery Date(Month/Year) heart surgery unspecified 2015
--- NOTE | 2024-10-07 11:04 | AM.OFFWIN_ITS ---
Intake Vital Signs 10/07/24 11:05 Height 5 ft 6 in Weight 207 lb BMI 33.4 BP 118/80 Blood Pressure Location Rt brachial Position Sitting Pulse 71 Pulse Source Pulse Oximeter Temp 98.2 F Temp Source Oral Pulse Oximetry (%) 98 Oxygen Delivery Method Room Air Intake Visit Reasons: EP cold, ? RSV Intake Note: Patient here for cough that has been present for 4 days and has RSV Patient Tobacco Use Status: Never used Tobacco Allergies HEPARIN COMBINATION Allergy (Unknown, Uncoded 10/07/24 11:05) Unknown Heparin Combination Allergy (Unknown, Uncoded 10/07/24 11:05) Anaphylaxis Do you need a note to return to daycare/school/sports/work: No HPI EP cold, ? RSV HPI Details This is a 64-year-old male patient who presents today to the walk-in clinic requesting RSV testing. He states his granddaughter and were both recently positive. He has mild cough and occasional wheezing, however he otherwise feels well. Denies any fever or shortness of breath. Denies any history of asthma or lung disease. Has not taken anything [id number]. [facility] Medical History Proteinuria Fatty liver Cardiogenic shock Myocardial infarct CKD (chronic kidney disease) Hyperparathyroidism Heparin induced thrombocytopenia CRI (chronic renal insufficiency) Pulmonary embolism Coronary artery disease Renal insufficiency Hyperlipidemia Hypertension Surgical History Stented coronary artery History of open heart surgery Family History Father Unknown family medical history Mother HTN (hypertension) Other Substance use disorder Social History Housing: Other Patient Tobacco Use Status: Never used Tobacco e-Cigarette/Vaping Use: Never Used Second Hand Smoke Exposure: Yes Current occupational status: retired Cognitive needs: No Hearing needs: No Vision needs: No Review of Systems Const All systems reviewed & are unremarkable except as noted in HPI and below Physical Exam Vital Signs: Last Vital Signs Temp 98.2 F 10/07/24 11:05 Pulse 71 10/07/24 11:05 BP 118/80 10/07/24 11:05 Pulse Ox 98 10/07/24 11:05 Oxygen Delivery Method Room Air 10/07/24 11:05 BMI result Body Mass Index 33.4 Const General: cooperative, healthy appearing and no acute distress HEENT Head: Yes normal to inspection Ears: hearing grossly normal bilaterally General nose exam: Normal external nose present Face and sinus: Yes normal facial exam Mouth: Normal oral and palatal mucosa present Throat: Yes posterior oropharynx normal Neck Neck: Yes no lymphadenopathy Resp Effort & Inspection: normal respiratory effort and able to speak in complete sentences Auscultation: clear to auscultation bilaterally and wheezes (mild inspiratory wheezes upper b/l) Cardio Rate: regular rate Rhythm: regular rhythm Skin General skin exam: no rashes or lesions noted Extrem General: Yes capillary refill normal and Yes no clubbing, cyanosis or edema Psych Appearance: grossly normal Mental Status: mental status grossly normal Speech and movement: Normal speech and movement present Assessment & Plan Assessment & Plan (1) Upper respiratory infection: Code(s): J06.9 - Acute upper respiratory infection, unspecified Qualifiers: URI type: unspecified viral URI Qualified Code(s): J06.9 - Acute upper respiratory infection, unspecified Plan: Patient with known close exposure to RSV. Symptoms consistent with this. COVID/flu/RSV swab obtained per patient request. He declines need for any treatment, however agrees to an albuterol inhaler for p.r.n. use for wheezing. We reviewed indications, use, possible side effects of this. We discussed conservative measures including rest, hydration, healthy food intake. He may take [id number] cold/flu medication as needed. All questions were answered and patient verbalizes understanding and agrees to plan. He will return to the clinic if he does not improve with time and conservative treatment. Orders: Orders SARS-CoV2/FLU/RSV Today J06.9 - Acute upper respiratory infection, unspecified Medications: New albuterol sulfate 90 mcg/actuation 1 inh inhalation QID PRN 6.7 grams 0RF shortness of breath or wheezing J06.9 - Acute upper respiratory infection, unspecified Coding Level of Care Code Est Pt Level 4 (07822) Diagnoses Viral upper respiratory tract infection J06.9 URI type: unspecified viral URI
[2024-10-07 11:05] VITALS: BP 118/80; PULSE 71; TEMP 36.8; O2SAT 98; BMI 33.4
== END 2024-10-07 11:23 | disposition home or self-care (01) ==
PROVIDERS: PCP Nurse Practitioner Family; Visit Provider Nurse Practitioner Family
DX: J06.9 Acute upper respiratory infection, unspecified (principal)

== ENCOUNTER 2024-10-11 08:05 | Outpatient (REF) | payer MEDICARE, SELFPAY ==
--- NOTE | ~2024-10-11 | XR_ITS ---
EXAMINATION: XR CHEST CLINICAL INFORMATION: R05.9 - Cough, unspecified COMPARISON: None available. TECHNIQUE: 2 views of the chest were obtained. FINDINGS: Lungs are somewhat expanded and clear of acute pneumonic process. There is patchy atelectasis or scarring in the right middle lobe. The heart size is enlarged. Pulmonary vascularity is normal. There are median sternotomy sutures and mediastinal carmen from previous CABG. No gross bony abnormality seen. XR/XR chest 2V IMPRESSION: Patchy atelectasis or scarring in right middle lobe. Electronically signed by: Rodney Redmond MD 10/11/2024 10:51 AM EST
== END 2024-10-11 08:06 | disposition home or self-care (01) ==
LOC: HO.HMGCX 08:05
PROVIDERS: PCP Nurse Practitioner Family; Visit Provider Physician Assistant
DX: R05.9 Cough, unspecified (principal); J20.5 Acute bronchitis due to respiratory syncytial virus
CPT/HCPCS: 71046; 99212

== ENCOUNTER 2024-10-11 08:05 | Outpatient (AMB) | payer MEDICARE, SELFPAY ==
--- OUTSIDE RECORDS SUMMARY | 2024-10-11 08:09 | XMS_ITS | Patient Health Record ---
Author Organization [facility] tabitha [place] Address [address] [facility] [place] [address] Care Team Providers Care Strip Cleaner Name Role Phone Rodger Fox Primary Care Provider Yanna Padron Unavailable [phone] Allergies Allergen (clinical drug ingredient) Drug/Non Drug Allergy documented on EMR Reaction Allergy Type Onset Date Status heparin Heparin Unknown Drug Allergy Active Reason For Referral No Information Medications Medication SIG (Take, Route, Fr equency, Duration) Notes Start Date End Date Status amLODIPine Besylate Active Atorvastatin Calcium Active Ezetimibe Active Jardiance Active Ciclopirox 0.77 % 1 application Supervisor Fusing Room ally Once a day for 30 days [...] 09/26/2024 Encounters Encounter Location Date Provider Diagnosis [facility] [address] [facility] [place] [address] 08/15/2024 Yanna Canas Pain in right toe(s) M79.674 ; Onychomycosis B35.1 and Pain in left toe(s) M79.[address] [facility] [address] 09/26/2024 Yannatomas Canas Pain in right toe(s) M79.674 ; Onychomycosis B35.1 and Pain in left toe(s) M79.[address] [address] 07/15/2024 [facility] [address] 08/11/2024 [facility] [address] 09/29/2024 Yanna Canas Assessments Encounter Date Diagnosis [...] Details Provider Name:Ruth wood, 12/13/2024 09:15:00 AM, [address] [place] [address], [phone], Provider Name:Yanna khan, 02/23/2025 10:00:00 AM, [address] [place] [address], [phone], Insurance Providers Payer Name Payer Address Payer Phone Subscriber Number Group Number Insured Name Patient Relationship to Insured Coverage Start Date Coverage End Date Aetna [address] [place] [phone] [id number] Jaime Chapin Self - patient is the insured Medical (General) History Medical History History ICD Code High Blood Pressure Transfusions Surgical History Surgery Date(Month/Year) heart surgery unspecified 2015
--- OUTSIDE RECORDS SUMMARY | 2024-10-11 08:09 | XMS_ITS ---
Author Organization [facility] Address [address] [place] [address] Care Team Providers Care Brim Stretcher Name Role Phone Rodger Fox Primary Care Provider Unav Yanna Tirado Unavailable [phone] REASON FOR VISIT Lab results Medications Medication SIG (Take, Route, Fr equency, Duration) Notes Start Date End Date Status Terbinafine HCl 250 MG 1 tablet Orally O nce a day for 30 days 09/29/2024 Active Encounters Encounter Location Date Provider Diagnosis [address] [address] 09/29/2024 Yanna Canas Plan Of Treatment Medication Medication Name Sig Start Date Stop Date Notes Terbinafine HCl 250 MG 1 tablet Orally O nce a day for 30 days 09/29/2024 Next Appt Details Provider Name:Ruth wood, 12/13/2024 09:15:00 AM, [address] [place] [address], [phone], Provider Name:Yanna khan, 02/23/2025 10:00:00 AM, [address] [place] [address], [phone], Progress Notes * Jaime CHAPINDOB:1960 (64 yo M)Acc No.[id number]:09/29/2024 Patient:?Jaime CHAPIN :1960???Age:64 Y???Sex:Male Address:[address] [place] [address] * Refills? Start Terbinafine HCl Tablet, 250 MG, Orally, 30 Tablet, 1 tablet, Once a day, 30 days, Refills=1 * true * Date:? Generated for Marichuy rangel/Ekaterina/Lisa on:?10/11/2024 08:08 AM EST
--- OUTSIDE RECORDS SUMMARY | 2024-10-11 08:09 | XMS_ITS ---
Author Organization [facility] Address [address] [place] [address] Care Team Providers Care Sail Repair Person Name Role Phone Rodger Fox Primary Care Provider Evonnev Yanna Tirado Unavailable [phone] Allergies Allergen (clinical drug ingredient) Drug/Non Drug Allergy documented on EMR Reaction Allergy Type Onset Date Status heparin Heparin Unknown Drug Allergy Active REASON FOR VISIT Pcp-05/04, Fungal Nails Medications Medication SIG (Take, Route, Fr equency, Duration) Notes Start Date End Date Status amLODIPine Besylate Active Atorvastatin Calcium Active Ciclopirox 0.77 % 1 application Landscape Nurseryman ally Once a day for 30 days [...] 09/26/2024 Encounters Encounter Location Date Provider Diagnosis [facility] [address] [place] [address] 09/26/2024 Yanna Canas Pain in right toe(s) [...] Reason: Provider Name:Ruth wood, 12/13/2024 09:15:00 AM, [address] [place] [address], [phone], Provider Name:Yanna khan, 02/23/2025 10:00:00 AM, [address] [place] [address], [phone], Progress Notes * Jaime CHAPINDOB:1960 (64 yo M)Acc No.[id number]:09/26/2024 Progress Notes Patient:?Jaime CHAPIN Provider:?Yanna Canas DPM :1960???Age:64 Y???Sex:Male Rodolfo e:09/26/2024 Address:[address] [place], [place] [id number] Pcp:YORDY Alcocer Subjective: * Chief Complaints: * [...] ?Exercise: no. ?Marital status: . 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 * Medications:?TakingClopidogr el Bisulfate Entresto Jardiance Ezetimibe [...] DPM Date:?1 11/27/2023 Generated for Marichuy rangel/Ekaterina/eTransmitting on:?10/11/2024 08:09 AM EST History and Physical Notes * [...]
--- OUTSIDE RECORDS SUMMARY | 2024-10-11 08:09 | XMS_ITS ---
Author Organization [facility] Address [address] [facility] [place] [address] Care Team Providers Care Core Manager Name Role Phone Rodger Fox Primary Care Provider Evonnev Yanna Tirado Unavailable [phone] Allergies Allergen (clinical drug ingredient) Drug/Non Drug [...] Bisulfate Active Ciclopirox 0.77 % 1 application Boat Wrapper ally Once a day for 30 [...] 08/15/2024 Encounters Encounter Location Date Provider Diagnosis [facility] [address] [place] [address] 08/15/2024 Yanna Canas Pain in right toe(s) [...] Date Notes Ciclopirox 0.77 % 1 application Boat Wrapper ally Once a day for 30 days Treatment Notes Assessment Notes Onychomycosis Patient Educated wit h: FUNGUS NAIL INFECTIONS.pdf (FUNGUS NAIL INFECTIONS.pdf) Pending Test Test Name Order Date *Liver Function Test (LFT) 08/15/2024 Next Appt Details Follow Up: 6 weeks, Reason: Provider Name:Ruth wood, 12/13/2024 09:15:00 AM, [address] [place] [address], [phone], Provider Name:Yanna khan, 02/23/2025 10:00:00 AM, [address] [place] [address], [phone], Progress Notes * Jaime CHAPINDOB:1960 (64 yo M)Acc No.[id number]:08/15/2024 Progress Notes Patient:?Jaime Chapin Provider:?Yanna Canas DPM :1960???Age:64 Y???Sex:Male Rodolfo e:08/15/2024 Address:[address] [place], [place] [id number] Pcp:YORDY Alcocer Subjective: * Chief Complaints: * ???Pcp-05/04Fungal Nails * HPI: ???Painful Nails:?Nature:?aching, tender, discolored, thick.?Location:?Both feet, all toenails.?Duration:?several years.?Course:?worse.?Aggravated by:?shoegear causing difficulty standing/walking.?Treatments:?none, Debridement, topical treatment, toenails removed by reception manager years ago,?was not successful.? * ROS:?General/Constitutional:?Nausea?denies.?Vomiting?denies.?Hunger Thirst?denies.?Loss [...] ?no Exercise. ?Marital status: . 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 * Medications:?TakingClopidogr el Bisulfate Entresto Jardiance Ezetimibe [...] Canas DPM Date:?10/15/2023 Generated for Marichuy rangel/Ekaterina/eTransmitting on:?10/11/2024 08:09 AM EST History and Physical Notes * HPI (History of Present Illness) Category Sub-Category Detail Notes Category Not es Painful Nails Aggravated by: shoegear causing difficulty standing/walking Course: worse Duration: several years Location: Both feet, all toena ils Nature: aching, tender, disc olored, thick Treatments: none, Debridement, t opical treatment, toenails removed by reception manager years ago, was not successful Examination Category [...]
--- NOTE | 2024-10-11 08:37 | AM.OFFWIN_ITS ---
Intake Vital Signs 10/11/24 08:41 Height 5 ft 6 in Weight 208 lb BMI 33.6 BP 110/80 Blood Pressure Location Rt brachial Position Sitting Pulse 68 Pulse Source Pulse Oximeter Temp 98.2 F Temp Source Oral Pulse Oximetry (%) 95 Oxygen Delivery Method Room Air Intake Visit Reasons: EP-cold symptoms Intake Note: Patient here because he has RSV and would like to have a chest xray done to make sure he does not have pneumonia. Patient Tobacco Use Status: Never used Tobacco Allergies HEPARIN COMBINATION Allergy (Unknown, Uncoded 10/11/24 08:42) Unknown Heparin Combination Allergy (Unknown, Uncoded 10/11/24 08:42) Anaphylaxis Do you need a note to return to daycare/school/sports/work: No HPI HPI Comments History of Present Illness Details History - The patient is a 64-year-old male pres enting with wheezing. - RSV infection diagnosed four days ago, with previous evaluation indicating stable vitals and wheezing. - Albuterol inhaler prescribed, pt didn' t know how to use it so he has been using it incorrectly. - Patient reports no fevers, shortness o f breath, but persisting wheezing. - Significant history includes myocardia l infarction, pulmonary embolism, with subsequent management including clopidogrel. - Current complaints include wheezing an d cough. Physical Exam General: Cooperative, healthy appearing, comfortable and no acute distress Orientation/consciousness: Patient oriented x3 Limitations: No limitations Head: Normal to inspection Ears: Hearing grossly normal bilaterally, external ears normal and TM's normal right, left TM cerumen blockage Nose: Normal external nose present, Normal nares present and No nasal discharge present Face and sinus: Normal facial exam and Yes sinuses nontender Mouth: Normal oral and palatal mucosa present and moist mucous membranes Throat: Yes tonsils normal, Yes uvula midline. Posterior oropharynx erythema Eyes: Appearance normal, both eyes and all related structures Neck: Normal visual inspection Respiratory: Insp/Exp Wheezes throughout. Normal respiratory effort, able to speak in complete sentences, Actively coughing, wheezing present, no respiratory distress, not tachypneic, no tripod positioning and no use of accessory muscles Cardiovascular: Regular rate and rhythm. Normal S1 and S2 Skin: No rashes or lesions noted Neuro: Patient oriented x3 Extremities: Normal to inspection and Yes no clubbing, cyanosis or edema [facility] Medical History Proteinuria Fatty liver Cardiogenic shock Myocardial infarct CKD (chronic kidney disease) Hyperparathyroidism Heparin induced thrombocytopenia CRI (chronic renal insufficiency) Pulmonary embolism Coronary artery disease Renal insufficiency Hyperlipidemia Hypertension Surgical History Stented coronary artery History of open heart surgery Family History Father Unknown family medical history Mother HTN (hypertension) Other Substance use disorder Social History Housing: Other Patient Tobacco Use Status: Never used Tobacco e-Cigarette/Vaping Use: Never Used Second Hand Smoke Exposure: Yes Current occupational status: retired Cognitive needs: No Hearing needs: No Vision needs: No Review of Systems Const All systems reviewed & are unremarkable except as noted in HPI and below Physical Exam Vital Signs: Last Vital Signs Temp 98.2 F 10/11/24 08:41 Pulse 68 10/11/24 08:41 BP 110/80 10/11/24 08:41 Pulse Ox 95 10/11/24 08:41 Oxygen Delivery Method Room Air 10/11/24 08:41 BMI result Body Mass Index 33.6 Assessment & Plan Assessment & Plan (1) RSV bronchitis: Code(s): J20.5 - Acute bronchitis due to respiratory syncytial virus Plan: VSS except O2 sat down to 95% from 98% four days ago. A chest X-ray is required to rule out pneumonia due to continued wheezing from an RSV infection. I prescribed a five-day course of prednisone, 20 mg daily, to address inflammation. If pneumonia is confirmed on imaging, antibiotics will be initiated. The prescription aims to alleviate wheezing and respiratory discomfort. Also sent Tesselon Pearles for nighttime use. These interventions are designed to manage current symptoms effectively while considering the patient's complex medical background. Patient was informed and verbally consented to the use of an ambient scribe for clinic note documentation during this visit Orders: Orders XR chest 2V Today R05.9 - Cough, unspecified Medications: New benzonatate 200 mg PO TID PRN 10 caps 0RF cough prednisone 20 mg PO QAM 5 tabs 0RF Coding Level of Care Code Est Pt Level 4 (13233) Diagnoses RSV bronchitis J20.5
[2024-10-11 08:41] VITALS: BP 110/80; PULSE 68; TEMP 36.8; O2SAT 95; BMI 33.6
== END 2024-10-11 09:09 | disposition home or self-care (01) ==
PROVIDERS: PCP Nurse Practitioner Family; Visit Provider Physician Assistant
DX: J20.5 Acute bronchitis due to respiratory syncytial virus (principal)

== ENCOUNTER → 2024-10-11 09:07 | Outpatient (BNV) | payer MEDICARE, SELFPAY | PROVIDERS: PCP Nurse Practitioner Family; Visit Provider Radiology Diagnostic Radiology | DX: R05.9 Cough, unspecified (principal) | CPT/HCPCS: 71046 ==

== ENCOUNTER 2024-10-31 09:53 | Outpatient (AMB) | payer MEDICARE, SELFPAY ==
[2024-10-31 10:10] VITALS: BP 110/70; PULSE 60; BMI 34.1
--- NOTE | 2024-10-31 10:10 | MHC.OFFVIS ---
Vital Signs 10/31/24 10:10 Height 5 ft 6 in Weight 211 lb 3.245 oz BMI 34.1 BP 110/70 Blood Pressure Location Lt brachial Position Sitting Pulse 60 Pulse Source Monitor Intake Visit Reasons: 4 month folllow-up Intake Note: 4 mth f/up Certified Nursing Assistant Instructor Required: No Accompanied by: Self / Same As Patient Allergies HEPARIN COMBINATION Allergy (Unknown, Uncoded 10/11/24 08:42) Unknown Heparin Combination Allergy (Unknown, Uncoded 10/11/24 08:42) Anaphylaxis Medication List - Last Reconciled 10/31/24 by Gio Benavides MD acetaminophen 1,000 mg (2 x 500 mg) PO Q6H PRN albuterol sulfate 90 mcg/actuation 1 inh inhalation QID PRN amlodipine 10 mg PO DAILY aspirin 81 mg PO DAILY atorvastatin 80 mg PO DAILY azithromycin For 250 mg dose pack: take 500 mg today (day 1), then 250 mg for 4 days (days 2-5) PO benzonatate 200 mg PO TID PRN clopidogrel 75 mg PO DAILY empagliflozin 10 mg PO DAILY ezetimibe 10 mg PO DAILY latanoprost 0.005% 1 drp ophthalmic (eye) BEDTIME metoprolol tartrate 25 mg PO BID prednisone 20 mg PO QAM sacubitril-valsartan 49-51 mg (Entresto) 1 tab PO BID sildenafil 25 mg PO DAILY PRN HPI Comments Details: 64-year-old gentleman who is here for 1st office visit. In 2015 he presented with dyspnea and palpitations to [facility] and based on his report he was transferred to [facility] for acute MN. he had primary PCI performed. He said he was given heparin and unfortunately had a reaction to heparin and developed blood clots which I think was JAMES. We do not have a lot of details of that and we will request records. He said his did CPR and eventually he was in the ICU for 38 days. He has a midline sternotomy scar and I do not know exact details currently. In any case he has recovered since then and has been doing well. He has no chest pains or shortness of breath. Blood pressure is mildly elevated. He is diabetic. He had echocardiography August 2022 which showed inferior inferolateral wall motion abnormality with mild mitral valve regurgitation. RV function was normal. 12/07/2023: He returns for follow-up. He had echocardiography which showed EF 45-50% with moderate mitral valve regurgitation. Posterior mitral valve leaflet appeared to be restricted which I think is related to previous circumflex infarct. I have reviewed his angiography as well as his hospital course at [facility]. He had massive pulmonary embolism for which she required thrombectomy surgically. Clinically, he has been stable. Denying any chest pain or shortness of breath. No congestive heart failure symptoms. 02/24/24: He is here for follow-up. He continues to be asymptomatic. Doing well and feeling better since been on Entresto and Jardiance. He is saying that he is breathing easier and feeling a difference although he did not complain to me previously about any shortness of breath. No signs of heart failure. 06/27/2024: He is here for follow-up. Continues to be active and has no exertional symptoms. No chest discomfort. No symptoms signs of heart failure. Blood pressure is well controlled. EKGs reviewed. Echo was in 10/31/2023 when EF was 45-50% with moderate mitral valve regurgitation. There was akinesis of inferolateral wall, basal inferior and mid inferior wall. Taking medications regularly. 10/31/2024: On follow-up today, he has been doing well. No chest discomfort shortness of breath. No orthopnea or PND. Blood pressure is well controlled. Echocardiography has shown EF 50-55% with trace mitral valve regurgitation. There is significant improvement in the mitral valve regurgitation. He unfortunately had some insurance issues and he is running out of his Entresto and Jardiance in few days. We have provided him with some coupons to see if he can get coverage while he is insurance kicks in. Otherwise he will call us and I will transition him to ARB from Entresto. [facility] Medical History Proteinuria Fatty liver Cardiogenic shock Myocardial infarct CKD (chronic kidney disease) Hyperparathyroidism Heparin induced thrombocytopenia CRI (chronic renal insufficiency) Pulmonary embolism Coronary artery disease Renal insufficiency Hyperlipidemia Hypertension Surgical History Stented coronary artery History of open heart surgery Family History Father Unknown family medical history Mother HTN (hypertension) Other Substance use disorder Social History Housing: Other Patient Tobacco Use Status: Never used Tobacco e-Cigarette/Vaping Use: Never Used Second Hand Smoke Exposure: Yes Current occupational status: retired Cognitive needs: No Hearing needs: No Vision needs: No Review of Systems Const Denies chills, Denies fatigue, Denies fever(s), Denies frequent falls, Denies weakness, Denies weight gain and Denies weight loss ENT Denies dizziness Card Denies chest pain, Denies leg edema, Denies lightheadedness, Denies palpitations, Denies dyspnea and Denies dyspnea on exertion Resp Denies cough, Denies dyspnea and Denies dyspnea on exertion GI Denies hematochezia Musc Denies abnormal gait, Denies muscle weakness, Denies numbness, Denies radiating pain into limb and Denies tingling Neuro Denies abnormal gait, Denies dizziness, Denies frequent falls, Denies numbness, Denies tingling and Denies weakness Endo Denies fatigue and Denies palpitations Physical Exam Vital Signs: Last Vital Signs Pulse 60 10/31/24 10:10 BP 110/70 10/31/24 10:10 BMI result Body Mass Index 34.1 GENERAL APPEARANCE: in no acute distress, pleasant. NECK: no carotid bruit, no jugular venous distention. SKIN: no suspicious lesions, warm and dry. HEART: Regular rate and rhythm. Grade 2/6 apical holosystolic murmur. LUNGS: clear to auscultation bilaterally. ABDOMEN: soft, nontender. EXTREMITIES: no edema. PERIPHERAL PULSES: equal. NEUROLOGIC: No gross deficits, AAO X 3 Office Procedures EKG Details: Sinus rhythm 60 beats per minute, leftward axis, inferior infarct, QTC 438 milliseconds. [id number], Complete Assessment & Plan Assessment & Plan (1) Mitral regurgitation: Code(s): I34.0 - Nonrheumatic mitral (valve) insufficiency Category: Medical (2) Stable angina: Code(s): I20.89 - Other forms of angina pectoris Category: Medical Plan 64-year-old gentleman presenting for follow-up. He has known history of previous acute coronary syndrome with left circumflex artery PCI with mild LV dysfunction. He had moderate mitral valve regurgitation by echocardiography in October 2023. Repeat echocardiography in 09/30/2024 while on medical therapy showed EF of 50-55% with trace mitral valve regurgitation. There was significant improvement in the mitral valve regurgitation. He has no symptoms clinically. ECG is showing sinus rhythm. We discussed about symptoms of progressive mitral valve regurgitation and if he developed any symptoms he will reach out to us. He forgot to sign up for insurance this year. He is in the process of getting insurance. He is running out of his Entresto and Jardiance. [id number] the cost is significant and I have advised him not to get it. We provided him with some coupons to see if he gets coverage for 30 days for Entresto and 14 days for Jardiance. If this does not work and Jardiance will be held till he gets insurance and Entresto will be changed to losartan 50 mg daily. Thank you for allowing me to participate in the care of your patient. Please feel free to contact me if you have any questions. Coding Level of Care Code Est Pt Level 4 (60719) Diagnoses Mitral regurgitation I34.0 Stable angina I20.89 CPT Codes EKG - CPT: 61450-Deponjzarnqhvamqw, Complete ([id number])
== END 2024-10-31 10:41 | disposition home or self-care (01) ==
PROVIDERS: PCP Nurse Practitioner Family; Visit Provider Internal Medicine Cardiovascular Disease
DX: I34.0 Nonrheumatic mitral (valve) insufficiency (principal); I20.89 Other forms of angina pectoris
CPT/HCPCS: 93010; 99214

== ENCOUNTER → 2024-10-31 09:53 | Outpatient (BNVA) | payer MEDICARE, SELFPAY | PROVIDERS: PCP Nurse Practitioner Family; Visit Provider Internal Medicine Cardiovascular Disease | DX: I34.0 Nonrheumatic mitral (valve) insufficiency (principal); I20.89 Other forms of angina pectoris; R94.31 Abnormal electrocardiogram [ECG] [EKG] | CPT/HCPCS: 93005; 99212 ==

== ENCOUNTER 2024-12-05 08:25 | Outpatient (AMB) | payer MEDICARE, SELFPAY ==
--- NOTE | 2024-12-05 08:45 | AM.OFFWIN_ITS ---
Intake Vital Signs 12/05/24 08:47 Weight 206 lb BP 130/80 Blood Pressure Location Rt brachial Position Sitting Pulse 67 Pulse Source Pulse Oximeter Temp 98.2 F Temp Source Oral Pulse Oximetry (%) 98 Oxygen Delivery Method Room Air Intake Visit Reasons: EP Lt elbow swelling, pain Intake Note: Patient here for left elbow swelling that he noticed satur morning. Patient Tobacco Use Status: Never used Tobacco Allergies HEPARIN COMBINATION Allergy (Unknown, Uncoded 12/05/24 08:47) Unknown Heparin Combination Allergy (Unknown, Uncoded 12/05/24 08:47) Anaphylaxis Do you need a note to return to daycare/school/sports/work: No HPI HPI Comments History of Present Illness Details History of Present Illness - The patient is a 64-year-old male pres enting with 2 days of sudden onset of pain, significant swelling, warmth, to the left elbow. - Pain severity has impacted his ability to use the left hand, prompting the use of the right hand for eating and other daily functions. - States this has happened before and it was a blood clot. - There is no history of intravenous colin g use. - denies fevers Physical Exam General: Cooperative, healthy appearing, comfortable, no acute distress and well developed Orientation: Patient oriented x3 Limitations: Limited movement in the right elbow due to pain and swelling Head: Normal to inspection Ears: Hearing grossly normal bilaterally Nose: Normal Nxternal nose present Face and sinus: ormal facial exam Eyes: Appearance normal, both eyes and all related structures Neck: Normal visual inspection and Yes full ROM Respiratory: Normal respiratory effort and able to speak in complete sentences. Skin: No rashes or lesions noted Neuro: Patient oriented x3 Extremities: left elbow swollen, red, warm to touch, very tender with very limited range of motion. [facility] Medical History Proteinuria Fatty liver Cardiogenic shock Myocardial infarct CKD (chronic kidney disease) Hyperparathyroidism Heparin induced thrombocytopenia CRI (chronic renal insufficiency) Pulmonary embolism Coronary artery disease Renal insufficiency Hyperlipidemia Hypertension Surgical History Stented coronary artery History of open heart surgery Family History Father Unknown family medical history Mother HTN (hypertension) Other Substance use disorder Social History Housing: Other Patient Tobacco Use Status: Never used Tobacco e-Cigarette/Vaping Use: Never Used Second Hand Smoke Exposure: Yes Current occupational status: retired Cognitive needs: No Hearing needs: No Vision needs: No Review of Systems Const All systems reviewed & are unremarkable except as noted in HPI and below Physical Exam Vital Signs: Last Vital Signs Temp 98.2 F 12/05/24 08:47 Pulse 67 12/05/24 08:47 BP 130/80 12/05/24 08:47 Pulse Ox 98 12/05/24 08:47 Oxygen Delivery Method Room Air 12/05/24 08:47 Assessment & Plan Assessment & Plan (1) Swelling of left elbow: Code(s): M25.422 - Effusion, left elbow Plan: Clinical findings are suggestive of septic joint, for which immediate assessment and possible confirmation through imaging and laboratory tests are necessary. Referral to an emergency setting is recommended for comprehensive evaluation and management, including the potential need for intravenous antibiotics. Called [facility] ED with expect for further workup of possible septic joint. Plan Patient was informed and verbally consented to the use of an ambient scribe for clinic note documentation during this visit. Coding Level of Care Code Est Pt Level 5 (17594) Diagnoses Swelling of left elbow M25.422
--- OUTSIDE RECORDS SUMMARY | 2024-12-05 08:45 | XMS_ITS | Encounter Summary ---
Author Organization [facility] Address [address] [place] [address] Phone Care Team Providers Care Stripper Black And White Name Role Phone Rodger Yeung NP Primary Care Provider [phone] Encounter Details Date Type Department Care Team ([facility] Contact Info) Description 09/09/2023 Documentation Only [facility] [address] [place] [phone] Todd Calderon MD [address] [place] [address] [place] [phone] Social History Tobacco Use Types Packs/Day Years Used Date Smoking Tobacco: Never Sex and Gender Information Value Date Recorded Sex Assigned at Not on file Legal Sex Male 8:00 AM EST Gender Identity Not on file Sexual Orientation Not on file documented as of this encounter Plan of Treatment Upcoming Encounters Date Type Department Care Team ([facility] Contact Info) Description 09/18/2025 1:45 PM EST Office Visit [facility] [address] [place] [address] Todd Calderon MD [address] [facility] [address] [address] documented as of this encounter Visit Diagnoses Not on filedocumented in this encounter Care Teams Stripper Black And White Relationship Specialty Start Date End Date Rodger Yeung NP [address] [place] [address] PCP - General Nurse Practitioner 12/03/20 documented as of this encounter
--- OUTSIDE RECORDS SUMMARY | 2024-12-05 08:45 | XMS_ITS | Encounter Summary ---
Author Organization [facility] Address [address] [place] [address] Phone Care Team Providers Care Criminal Justice Department Chair Name Role Phone Rodger Yeung NP Primary Care Provider [phone] Encounter Details Date Type Department Care Team (Late Contact Info) Description 09/16/2024 Documentation Only [facility] [address] [place] [address] Zharaa Asencio ID [address] [place] [phone] Social History Tobacco Use Types Packs/Day Years Used Date Smoking Tobacco: Never Sex and Gender Information Value Date Recorded Sex Assigned at Not on file Legal Sex Male 8:00 AM EST Gender Identity Not on file Sexual Orientation Not on file documented as of this encounter Plan of Treatment Upcoming Encounters Date Type Department Care Team (Late Contact Info) Description 09/18/2025 1:45 PM EST Office Visit [facility] [address] [place] [phone] Todd Calderon MD [address] [place] [address] [place] [address] documented as of this encounter Visit Diagnoses Not on filedocumented in this encounter Care Teams Criminal Justice Department Chair Relationship Specialty Start Date End Date Rodger Yeung NP [address] [place], [place] [id number] PCP - General Nurse Practitioner 12/03/20 documented as of this encounter
--- OUTSIDE RECORDS SUMMARY | 2024-12-05 08:45 | XMS_ITS ---
Author Organization [facility] Address [address] [place] [address] Care Team Providers Care Formula Technician Name Role Phone Rodger Fox Primary Care Provider Unav Yanna Tirado Unavailable [phone] REASON FOR VISIT Lab results Medications Medication SIG (Take, Route, Fr equency, Duration) Notes Start Date End Date Status Terbinafine HCl 250 MG 1 tablet Orally O nce a day for 30 days 09/29/2024 Active Encounters Encounter Location Date Provider Diagnosis [address] [address] 09/29/2024 Yanna Canas Plan Of Treatment Medication Medication Name Sig Start Date Stop Date Notes Terbinafine HCl 250 MG 1 tablet Orally O nce a day for 30 days 09/29/2024 Next Appt Details Provider Name:Ruth wood, 12/13/2024 09:15:00 AM, [address] [place] [address], [phone], Provider Name:Yanna khan, 02/23/2025 10:00:00 AM, [address] [place] [address], [phone], Progress Notes * Jaime CHAPINDOB:1960 (64 yo M)Acc No.[id number]:09/29/2024 Patient:?Jaime CHAPIN :1960???Age:64 Y???Sex:Male Address:[address] [place] [address] * Refills? Start Terbinafine HCl Tablet, 250 MG, Orally, 30 Tablet, 1 tablet, Once a day, 30 days, Refills=1 * true * Date:? Generated for Marichuy rangel/Ekaterina/Lisa on:?12/05/2024 08:45 AM EST
--- OUTSIDE RECORDS SUMMARY | 2024-12-05 08:45 | XMS_ITS | Encounter Summary ---
Author Organization [facility] Address [address] [place] [address] Phone Care Team Providers Care Retread Supervisor Name Role Phone Rodger Yeung NP Primary Care Provider [phone] Encounter Details Date Type Department Care Team (Late Contact Info) Description 09/16/2024 Documentation Only [facility] [address] [place] [address] Zahraa Asencio CO [address] [place] [phone] Social History Tobacco Use Types Packs/Day Years [...] Visit [facility] [address] [place] [phone] Todd Calderon MD [address] [place] [address] [place] [address] documented as of this encounter Visit Diagnoses Not on filedocumented in this encounter Care Teams Retread Supervisor Relationship Specialty Start Date End Date Rodger Yeung NP [address] [place], [place] [phone] PCP - General Nurse Practitioner 12/03/20 documented as of this encounter
--- OUTSIDE RECORDS SUMMARY | 2024-12-05 08:46 | XMS_ITS | Encounter Summary ---
Author Organization [facility] Address [address] [place] [address] Phone Care Team Providers Care Media Coordinator Name Role Phone Rodger Yeung NP Primary Care Provider [phone] Encounter Details Date Type Department Care Team ([facility] Contact Info) Description 11/03/2021 Documentation Only [facility] [address] [place] [phone] Todd Calderon MD [address] [place] [address] [place] [phone] Social History Tobacco Use Types Packs/Day Years Used Date Smoking Tobacco: Never Sex and Gender Information Value Date Recorded Sex Assigned at Not on file Legal Sex Male 8:00 AM EST Gender Identity Not on file Sexual Orientation Not on file documented as of this encounter Plan of Treatment Upcoming Encounters Date Type Department Care Team ([facility] Contact Info) Description 09/18/2025 1:45 PM EST Office Visit [facility] [address] [place] [address] Todd Calderon MD [address] [facility] [place] [address] documented as of this encounter Visit Diagnoses Not on filedocumented in this encounter Care Teams Media Coordinator Relationship Specialty Start Date End Date Rodger Yeung NP [address] [place] [address] PCP - General Nurse Practitioner 12/03/20 documented as of this encounter
--- OUTSIDE RECORDS SUMMARY | 2024-12-05 08:46 | XMS_ITS | Clinical Summary ---
Author Organization [facility] Address [address] [place] [address] Phone Care Team Providers Care Mill Labor Supervisor Name Role Phone Rodger Yeung NP Primary Care Provider [phone] Allergies Active Allergy Reactions Criticality Noted Date Comments Heparin (Porcine) Other (see comments) 12/29/19 21 Medications betamethasone dipropionate 0.05 % lotion Apply topically 2 (two) times a day Active amLODIPine (NORVASC) 10 MG tablet TAKE ONE TBALET DAILY 2 Active Aspirin Low Dose 81 MG EC tablet Take 81 mg by mouth 1 (one) time each day 2 Active atorvastatin (LIPITOR) 80 MG tablet Take 80 mg by mouth 1 (one) time each day 2 Active clopidogrel (PLAVIX) 75 MG tablet TAKE ONE TALET DAILY 2 Active ezetimibe (ZETIA) 10 MG tablet Take 10 mg by mouth 1 (one) time each day 2 Active metoprolol tartrate 25 MG tablet TAKE ONE TABLT TWICE A DAY 2 Active sacubitril-valsar beltran (Entresto) 49-51 MG per tablet Take 1 tablet by mouth in the morning and 1 tablet in the evening. Active Empagliflozin (Jardiance) 10 MG tablet Take 10 mg by mouth 1 (one) time each day in the morning Active Active Problems Problem Noted Date Diagnosed Date Acute nontraumatic kidney injury 12/28/2020 Proteinuria 12/28/2020 Encounters Date Type Department Care Team Description 09/16/2024 Documentation Only [facility] [address] [place] [phone] Zahraa Asencio MA 09/16/2024 Documentation Only [facility] [address] [place] [phone] Zahraa Asencio MA 09/12/2024 1:45 PM EST Office Visit [facility] [address] [place] [phone] Todd Calderon MD Chronic kidney disease, stage 2 (mild) (Primary Dx); Persistent proteinuria from Last 3 Months Family History Medical History Relation Comments Hypertension Father Hypertension Mother Heart disease Sibling younger sister - heart issues Relation Status Comments Father Mother Sibling Social History Tobacco Use Types Packs/Day Years Used Date Smoking Tobacco: Never Sex and Gender Information Value Date Recorded Sex Assigned at Not on file Legal Sex Male 8:00 AM EST Gender Identity Not on file Sexual Orientation Not on file Last Filed Vital Signs Vital Sign Reading Time Taken Comments Blood Pressure 136/80 09/12/2024 1:56 PM EST Pulse - - Temperature - - Respiratory Rate - - Oxygen Saturation - - Inhaled Oxygen Concentration - - Weight - - Height - - Body Mass Index - - Plan of Treatment Upcoming Encounters Date Type Department Care Team (Late st Contact Info) Description 09/18/2025 1:45 PM EST Office Visit [facility] [address] [place] [address] Todd Calderon MD [address] [place] [address] [place] [phone] Health Maintenance Due Date Last Done Comments Pneumococcal Vaccine: 65+ Ye ars (1 of 2 - PCV) 01/[birth year]/1964 Colorectal Cancer Screening: Annual FOBT 2007 Colorectal Cancer Screening: Colonoscopy 2007 Colorectal Cancer Screening: Sigmoidoscopy 2007 Influenza Vaccine (#1) 2024 Hepatitis B Vaccine Aged Out No longe r eligible based on patient's age to complete this topic Insurance [employer] MCR ADV PPO ([id number]) Care Teams Mill Labor Supervisor Relationship Specialty Start Date End Date Rodger eYung NP [address] [place] [address] PCP - General Nurse Practitioner 12/03/20
--- OUTSIDE RECORDS SUMMARY | 2024-12-05 08:46 | XMS_ITS ---
Author Organization [facility] Address [address] [facility] [place] [address] Care Team Providers Care Senior Customer Service Representative Name Role Phone Rodger Fox Primary Care Provider Evonnev Yanna Tirado Unavailable [phone] Allergies Allergen (clinical drug ingredient) Drug/Non Drug [...] Bisulfate Active Ciclopirox 0.77 % 1 application Vocational Training Instructor ally Once a day for 30 days [...] 08/15/2024 Encounters Encounter Location Date Provider Diagnosis [facility] [address] [place] [address] 08/15/2024 Yanna Canas Pain in right toe(s) [...] Date Notes Ciclopirox 0.77 % 1 application Vocational Training Instructor ally Once a day for 30 days Treatment Notes Assessment Notes Onychomycosis Patient Educated wit h: FUNGUS NAIL INFECTIONS.pdf (FUNGUS NAIL INFECTIONS.pdf) Pending Test Test Name Order Date *Liver Function Test (LFT) 08/15/2024 Next Appt Details Follow Up: 6 weeks, Reason: Provider Name:Ruth wood, 12/13/2024 09:15:00 AM, [address] [place] [address], [phone], Provider Name:Yanna khan, 02/23/2025 10:00:00 AM, [address] [place] [address], [phone], Progress Notes * Jaime CHAPINDOB:1960 (64 yo M)Acc No.[id number]:08/15/2024 Progress Notes Patient:?Jaime Chapin Provider:?Yanna Canas DPM :1960???Age:64 Y???Sex:Male Rodolfo e:08/15/2024 Address:[address] [place], [place] [id number] Pcp:YORDY Alcocer Subjective: * Chief Complaints: * ???Pcp-05/04Fungal Nails * HPI: ???Painful Nails:?Nature:?aching, tender, discolored, thick.?Location:?Both feet, all toenails.?Duration:?several years.?Course:?worse.?Aggravated by:?shoegear causing difficulty standing/walking.?Treatments:?none, Debridement, topical treatment, toenails removed by retail service specialist years ago,?was not successful.? * ROS:?General/Constitutional:?Nausea?denies.?Vomiting?denies.?Hunger Thirst?denies.?Loss [...] ?no Exercise. ?Marital status: . 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 * Medications:?TakingClopidogr el Bisulfate Entresto Jardiance Ezetimibe [...] Canas DPM Date:?10/15/2023 Generated for Marichuy rangel/Ekaterina/eTransmitting on:?12/05/2024 08:45 AM EST History and Physical Notes * HPI (History of Present Illness) Category Sub-Category Detail Notes Category Not es Painful Nails Aggravated by: shoegear causing difficulty standing/walking Course: worse Duration: several years Location: Both feet, all toena ils Nature: aching, tender, disc olored, thick Treatments: none, Debridement, t opical treatment, toenails removed by retail service specialist years ago, was not successful Examination Category [...]
--- OUTSIDE RECORDS SUMMARY | 2024-12-05 08:46 | XMS_ITS | Patient Health Record ---
Author Organization [facility] [place] Address [address] [facility] [place] [address] Care Team Providers Care Pattern Maker Programer Name Role Phone Rodger Fox Primary Care Provider Yanna Padron Unavailable [phone] Allergies Allergen (clinical drug ingredient) Drug/Non Drug Allergy documented on EMR Reaction Allergy Type Onset Date Status heparin Heparin Unknown Drug Allergy Active Reason For Referral No Information Medications Medication SIG (Take, Route, Fr equency, Duration) Notes Start Date End Date Status amLODIPine Besylate Active Atorvastatin Calcium Active Ezetimibe Active Jardiance Active Ciclopirox 0.77 % 1 application Manager Contract ally Once a day for 30 days [...] 09/26/2024 Encounters Encounter Location Date Provider Diagnosis [facility] [address] [facility] [place] [address] 08/15/2024 Yanna Canas Pain in right toe(s) M79.674 ; Onychomycosis B35.1 and Pain in left toe(s) M79.[facility] [address] 09/26/2024 Yannatomas Canas Pain in right toe(s) M79.674 ; Onychomycosis B35.1 and Pain in left toe(s) M79.[address] [address] 07/15/2024 [facility] [address] 08/11/2024 [facility] [address] 09/29/2024 Yanna Canas Assessments Encounter Date Diagnosis [...] Details Provider Name:Ruth wood, 12/13/2024 09:15:00 AM, [address] [place] [address], [phone], Provider Name:Yanna khan, 02/23/2025 10:00:00 AM, [address] [place] [address], [phone], Insurance Providers Payer Name Payer Address Payer Phone Subscriber Number Group Number Insured Name Patient Relationship to Insured Coverage Start Date Coverage End Date [employer] [address] VITO Walker [phone] [id number] Jaime Chapin Self - patient is the insured Medical (General) History Medical History History ICD Code High Blood Pressure Transfusions Surgical History Surgery Date(Month/Year) heart surgery unspecified 2015
--- OUTSIDE RECORDS SUMMARY | 2024-12-05 08:46 | XMS_ITS ---
Author Organization [facility] Address [address] [place] [address] Care Team Providers Care Portainer Operator Name Role Phone Rodger Fox Primary Care Provider Evonnev Yanna Tirado Unavailable [phone] Allergies Allergen (clinical drug ingredient) Drug/Non Drug Allergy documented on EMR Reaction Allergy Type Onset Date Status heparin Heparin Unknown Drug Allergy Active REASON FOR VISIT Pcp-05/04, Fungal Nails Medications Medication SIG (Take, Route, Fr equency, Duration) Notes Start Date End Date Status amLODIPine Besylate Active Atorvastatin Calcium Active Ciclopirox 0.77 % 1 application Silk Screen Repairer ally Once a day for 30 days [...] 09/26/2024 Encounters Encounter Location Date Provider Diagnosis [facility] [address] [place] [address] 09/26/2024 Yanna Canas Pain in right toe(s) [...] Reason: Provider Name:Ruth wood, 12/13/2024 09:15:00 AM, [address] [place] [address], [phone], Provider Name:Yanna khan, 02/23/2025 10:00:00 AM, [address] [place] [address], [phone], Progress Notes * Jaime CHAPINDOB:1960 (64 yo M)Acc No.[id number]:09/26/2024 Progress Notes Patient:?Jaime CHAPIN Provider:?Yanna Canas DPM :1960???Age:64 Y???Sex:Male Rodolfo e:09/26/2024 Address:[address] [place], [place] [phone] Pcp:YORDY Alcocer Subjective: * Chief Complaints: * [...] ?Exercise: no. ?Marital status: . 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 * Medications:?TakingClopidogr el Bisulfate Entresto Jardiance Ezetimibe [...] status: Completed true * Provider:Christoph Canas DPM Date:?11/27/2023 Generated for Marichuy rangel/Ekaterina/eTransmitting on:?12/05/2024 08:46 AM EST History and Physical Notes * [...]
--- OUTSIDE RECORDS SUMMARY | 2024-12-05 08:46 | XMS_ITS | Encounter Summary ---
Author Organization [facility] Address [address] [place] [address] Phone Care Team Providers Care Section Leader And Machine Setter Name Role Phone Rodger Yeung NP Primary Care Provider [phone] Encounter Details Date Type Department Care Team ([facility] Contact Info) Description 07/21/2022 Documentation Only [facility] [address] [place] [phone] Todd Calderon MD [address] [place] [address] [place] [phone] Social History Tobacco Use Types Packs/Day Years Used Date Smoking Tobacco: Never Sex and Gender Information Value Date Recorded Sex Assigned at Not on file Legal Sex Male 8:00 AM EST Gender Identity Not on file Sexual Orientation Not on file documented as of this encounter Plan of Treatment Upcoming Encounters Date Type Department Care Team ([facility] Contact Info) Description 09/18/2025 1:45 PM EST Office Visit [facility] [address] [place] [address] Todd Calderon MD [address] [facility] [place] [address] documented as of this encounter Visit Diagnoses Not on filedocumented in this encounter Care Teams Section Leader And Machine Setter Relationship Specialty Start Date End Date Rodger Yeung NP [address] [place] [address] PCP - General Nurse Practitioner 12/03/20 documented as of this encounter
--- OUTSIDE RECORDS SUMMARY | 2024-12-05 08:46 | XMS_ITS | Encounter Summary ---
Author Organization [facility] Address [address] [place] [address] Phone Care Team Providers Care Ocular Care Technologist Name Role Phone Rodger Yeung NP Primary Care Provider [phone] Encounter Details Date Type Department Care Team (Late Contact Info) Description 12/05/2022 Documentation Only [facility] [address] [place] [phone] Todd Calderon MD [address] [place] [address] [place] [phone] Social History Tobacco Use Types Packs/Day Years Used Date Smoking Tobacco: Never Sex and Gender Information Value Date Recorded Sex Assigned at Not on file Legal Sex Male 8:00 AM EST Gender Identity Not on file Sexual Orientation Not on file documented as of this encounter Plan of Treatment Upcoming Encounters Date Type Department Care Team ([facility] Contact Info) Description 09/18/2025 1:45 PM EST Office Visit [facility] [address] [place] [address] Todd Calderon MD [address] [facility] [place] [address] documented as of this encounter Visit Diagnoses Not on filedocumented in this encounter Care Teams Ocular Care Technologist Relationship Specialty Start Date End Date Rodger Yeung NP [address] [place] [address] PCP - General Nurse Practitioner 12/03/20 documented as of this encounter
[2024-12-05 08:47] VITALS: BP 130/80; PULSE 67; TEMP 36.8; O2SAT 98
== END 2024-12-05 09:02 | disposition home or self-care (01) ==
PROVIDERS: PCP Nurse Practitioner Family; Visit Provider Physician Assistant
DX: M25.422 Effusion, left elbow (principal)

== ENCOUNTER 2024-12-05 09:28 | Emergency (ER) | payer MEDICARE, SELFPAY ==
[2024-12-05 10:36] VITALS: BP 118/76; PULSE 63; RESP 16; TEMP 36; O2SAT 97; BMI 33.0
[2024-12-05 13:37] LABS: MANUAL DIFF FLAG NO
[2024-12-05 13:39] LABS: Basophils Percent Auto 0.2 % (0-2); Eosinophils Absolute Auto 0.1 X10*3/uL (0.0-0.4); Eosinophils Percent Auto 0.6 % (0-4); Hematocrit 50.5 % (42.0-52.0); Hemoglobin 16.3 g/dl (14.0-18.0); Imm Gran Abs Auto 0.02 X10*3/uL (0.00-0.03); Imm Gran Pct Auto 0.2 % (0.0-0.4); Lymphocytes Absolute Auto 1.3 X10*3/uL (1.2-4.9); Lymphocytes Percent Auto 15.8 % (20-40); Mean Corpuscular HGB Conc 32.3 g/dl (31.0-36.0); Mean Corpuscular Hemoglobin 28.1 pg (27.0-33.0); Mean Corpuscular Volume 87.1 fL (80.0-98.0); Mean Platelet Volume 9.5 fL (9.4-12.4); Monocytes Absolute Auto 0.7 X10*3/uL (0.1-1.2); Monocytes Percent Auto 8.4 % (2-11); Neutrophils Absolute Auto 6.3 x10*3/uL (2.0-8.3); Neutrophils Percent Auto 74.8 % (45-73); Platelet Count 206 X10*3/uL (160-400); Red Cell Distribution Width 14.1 % (11.0-16.0); White Blood Count 8.4 X10*3/uL (4.8-10.8)
[2024-12-05 13:52] LABS: Alanine Aminotransferase 50 U/L (0-40); Alkaline Phosphatase 58 U/L (39-117); Anion Gap 11 (12-20); Aspartate Amino Transferase 30 U/L (5-37); Bilirubin Total 0.5 mg/dL (0.0-1.0); Blood Urea Nitrogen 16 mg/dL (9-16); C Reactive Protein 1.56 mg/dL (< or = 0.50); Calcium 9.6 mg/dL (8.4-10.2); Carbon Dioxide 25 mmol/L (22-29); Chloride 111 mmol/L (96-108); Creatinine Clr Calc Pharmacy 66.7; Estimated Glomerular Filt Rate > 60; Glucose Random 91 mg/dL (60-115); Magnesium 2.4 mg/dL (1.6-2.6); Potassium 4.9 mmol/L (3.3-5.1); Sodium 142 mmol/L (135-145); Total Protein 7.9 g/dL (6.5-8.0)
--- NOTE | 2024-12-05 14:07 | ED_ITS ---
HPI - Extremity Problem General Chief complaint: Extremity Injury, Upper Stated complaint: l arm pain sent in by pcp Time Seen by Provider: 12/05/24 14:06 Source: patient and family Mode of arrival: ambulatory Limitations: no limitations History of Present Illness ED Provider: ELY RAWLS Narrative: 64 yo male with PMH of HTN, mitral regurgitation, CAD, hypthyroidism, asthma, HLD, he is R hand dominant here with c/o noticing pain and swelling on olecranon on L elbow. No fevers, chills. He denies hx of bursitis in past but definitely works and leans on it frequently. He was referred by his PCP for CT scan to rule out septic joint. NO fevers, no entire joint swelling, MEÑO WEBER Complaint: joint pain Onset (ago): day(s) (3) Pain Consistency: constant Location: left and elbow Quality: aching Radiation: distal Relieving factors: immobilization Exacerbating factors: palpation Associated symptoms: denies other symptoms Context: other Related Data Home Medications ?Medication ?Instructions ?Recorded ?Confirmed latanoprost 0.005 % eye drops 1 drp ophthalmic (eye) BEDTIME 10/21/23 10/31/24 Previous Rx's ?Medication ?Instructions ?Recorded aspirin 81 mg tablet,delayed 81 mg PO DAILY #90 tabs 01/23/23 release acetaminophen 500 mg capsule 1,000 mg (2 x 500 mg) PO Q6H PRN 12/31/23 pain (scale score 7-10) #60 caps sildenafil 25 mg tablet 25 mg PO DAILY PRN sexual activity 05/17/24 #10 tabs atorvastatin 80 mg tablet 80 mg PO DAILY #90 tabs 07/25/24 amlodipine 10 mg tablet 10 mg PO DAILY #90 tabs 08/28/24 clopidogrel 75 mg tablet 75 mg PO DAILY #90 tabs 08/28/24 ezetimibe 10 mg tablet 10 mg PO DAILY #90 tabs 08/28/24 metoprolol tartrate 25 mg tablet 25 mg PO BID #180 tabs 08/28/24 sacubitril 49 mg-valsartan 51 mg 1 tab PO BID #60 tabs 09/20/24 tablet (Entresto) albuterol sulfate 90 mcg/actuation 1 inh inhalation QID PRN shortness 10/07/24 aerosol inhaler of breath or wheezing #6.7 grams empagliflozin 10 mg tablet 10 mg PO DAILY #90 tabs 11/08/24 amoxicillin 875 mg-potassium 1 tab PO BID #14 tabs 12/05/24 clavulanate 125 mg tablet doxycycline hyclate 100 mg capsule 100 mg PO BID 7 days #14 caps 12/05/24 hydrocodone 5 mg-acetaminophen 325 1 tab PO Q6H PRN pain #10 tabs 12/05/24 mg tablet Allergies Allergy/AdvReac Type Severity Reaction Status Date / Time Heparin Combination Allergy Severe Anaphylaxis Uncoded 12/05/24 10:42 Review of Systems 2 Review of Systems: Constitutional : No Fever, No Chills ENT/Mouth : No Ear Pain, No Hoarseness, No sore throat Eyes: No Eye Pain, No Swelling, No Redness, No Foreign Body Cardiovascular : No Chest Pain, No SOB Respiratory : No Cough, No Dyspnea Gastrointestinal : No Nausea, No Vomiting, No Diarrhea, No abdominal Pain Genitourinary : No Dysuria, No Hematuria Musculoskeletal : positive joint pain, No Myalgias, No Joint Swelling Skin : No Skin lacerations, No rash Neuro : No Weakness, No Numbness, No Loss of Consciousness, No Dizziness, No Headache All other systems reviewed and are negative PMFSH Past Medical History Attestation statement: The following information was validated with the patient. Source: old records reviewed Medical History Proteinuria Fatty liver Cardiogenic shock Myocardial infarct CKD (chronic kidney disease) Hyperparathyroidism Heparin induced thrombocytopenia CRI (chronic renal insufficiency) Pulmonary embolism Coronary artery disease Renal insufficiency Hyperlipidemia Hypertension Surgical History Stented coronary artery History of open heart surgery Family History Family History Father Unknown family medical history Mother HTN (hypertension) Other Substance use disorder Social History Social History Housing: Other Patient Tobacco Use Status: Never used Tobacco e-Cigarette/Vaping Use: Never Used Second Hand Smoke Exposure: Yes Current occupational status: retired Cognitive needs: No Hearing needs: No Vision needs: No Physical Exam 2 Vital Signs: Vital Signs: Last Vital Signs Temp 96.8 F 12/05/24 10:36 Pulse 63 12/05/24 10:36 Resp 16 12/05/24 10:36 BP 118/76 12/05/24 10:36 Pulse Ox 97 12/05/24 10:36 O2 Del Method Room Air 12/05/24 10:36 BMI result Body Mass Index 33.0 Appearance: Alert. Oriented X3. No acute distress. Eyes: Pupils equal, round and reactive to light. ENT: Pharynx normal. Neck: Normal inspection. Neck supple. CVS: Normal heart rate and rhythm. Pulses normal. Respiratory: No respiratory distress. Breath sounds normal. Abdomen: Soft and nontender. Skin: Skin warm and dry. Normal skin color. Normal skin turgor. Extremities: No lower extremity edema. L elbow is swollen bursa with mild redness and warmth he is distal NV intact, he has no joint effusion and arm is not swollen compared to R side he can passively range it but feels pain with active. He has no obvious joint effusion Neuro: Oriented X 3. No motor deficit. No sensory deficit. CN2-12 intact Medical Decision Making Medical Decision Making [facility] Narrative: 64 yo male with PMH of HTN, mitral regurgitation, CAD, hypthyroidism, asthma, HLD, here with L olecranon bursitis on exam he can passively range the joint there is no heat or joint effusion/redness other than redness to posterior olecranon at this time he was referred for CT scan - I did offer CT scan he does not want to wait. Started on oral abx with strict precautions to return. Differential Diagnosis Differential Diagnoses: The differential diagnosis associated with the presentation includes septic bursitis, gouty bursitis, joint effusion Admission/Observation Consideration of admission/observation: Escalation of care including admission/observation considered refuses further work up and imaging aware low clinical suspicion of septic joint but unable to see if there is an effusion Lab Data [facility] Lab Attestation statement: I reviewed the patient's lab results. 12/05/24 13:32 12/05/24 13:32 Labs: Lab Results 12/05/24 Range/Units 13:32 WBC 8.4 (4.8-10.8) X10*3/uL RBC 5.80 (4.60-5.80) X10*6/uL Hgb 16.3 (14.0-18.0) g/dl Hct 50.5 (42.0-52.0) % MCV 87.1 (80.0-98.0) fL MCH 28.1 (27.0-33.0) pg MCHC 32.3 (31.0-36.0) g/dl RDW 14.1 (11.0-16.0) % Plt Count 206 (160-400) X10*3/uL MPV 9.5 (9.4-12.4) fL Immature Gran % (Auto) 0.2 (0.0-0.4) % Neut % (Auto) 74.8 H (45-73) % Lymph % (Auto) 15.8 L (20-40) % [place] % (Auto) 8.4 (2-11) % Eos % (Auto) 0.6 (0-4) % Baso % (Auto) 0.2 (0-2) % Lymph # (Auto) 1.3 (1.2-4.9) X10*3/uL [place] # (Auto) 0.7 (0.1-1.2) X10*3/uL Eos # (Auto) 0.1 (0.0-0.4) X10*3/uL Baso # (Auto) 0.0 (0.0-0.2) X10*3/uL Abs Immat Gran (auto) 0.02 (0.00-0.03) X10*3/uL Absolute Neuts (auto) 6.3 (2.0-8.3) x10*3/uL Absolute Nucleated RBC 0.000 (0.0-0.012) X10*3/uL Nucleated RBC % (auto) 0.0 (0.0-0.2) /100WBC Sodium 142 (135-145) mmol/L Potassium 4.9 (3.3-5.1) mmol/L Chloride 111 H (96-108) mmol/L Carbon Dioxide 25 (22-29) mmol/L Anion Gap 11 L (12-20) BUN 16 (9-16) mg/dL Creatinine 1.16 (0.5-1.4) mg/dL Estim Creat Clear Calc 66.7 Estimated GFR > 60 Random Glucose 91 (60-115) mg/dL Calcium 9.6 (8.4-10.2) mg/dL Magnesium 2.4 (1.6-2.6) mg/dL Total Bilirubin 0.5 (0.0-1.0) mg/dL AST 30 (5-37) U/L ALT 50 H (0-40) U/L Alkaline Phosphatase 58 (39-117) U/L C-Reactive Protein 1.56 H (< or = 0.50) mg/dL Total Protein 7.9 (6.5-8.0) g/dL Albumin 4.0 (3.5-5.0) g/dL Independent Historian Clinical information obtained from an independent historian. History obtained from or confirmed by: Spouse External Record Review External record reviewed: Outpatient record Tests considered The following testing was considered but not selected: CT of l elbow declined Prescription Management I considered prescription management with: Pain Medication and Antibiotic Discharge Plan Discharge Clinical Impression: Infected olecranon bursa Qualifiers: Laterality: left Qualified Code(s): M71.122 - Other infective bursitis, left elbow Patient Disposition: Home, Self-Care Instructions: Elbow Bursitis (ED) Additional Instructions: really limit your movements and work with that hand return for worsening pain, fevers, swelling or any other concerns use tylenol and motrin for pain On amoxicillin-clavulanate, softer bowel movements are to be expected. Call your provider if you move your bowels more than 4 times a day, your bowel movements are almost all liquid, or you get a rash.? On doxycycline, do not take pills immediately before going to bed and swallow pills with plenty of water. Avoid direct sunlight, iron, antacids, and Pepto Bismol. Call your provider if you develop new ringing in your ears, new problems hearing, dizziness, difficulty swallowing, rash, abdominal discomfort, nausea, or diarrhea.? follow up at any time - you declined a CT scan while in ED Prescriptions: New amoxicillin-pot clavulanate 875-125 mg tablet 1 tab PO BID Qty: 14 0RF hydrocodone-acetaminophen 5-325 mg tablet 1 tab PO Q6H PRN (Reason: pain) Qty: 10 0RF Rx Instructions: partial fill okay; Partial Fill upon patient request. doxycycline hyclate 100 mg capsule 100 mg PO BID 7 Days Qty: 14 0RF No Action aspirin 81 mg tablet,delayed release (DR/EC) 81 mg PO DAILY Qty: 90 1RF atorvastatin 80 mg tablet 80 mg PO DAILY Qty: 90 1RF metoprolol tartrate 25 mg tablet 25 mg PO BID Qty: 180 1RF clopidogrel 75 mg tablet 75 mg PO DAILY Qty: 90 1RF ezetimibe 10 mg tablet 10 mg PO DAILY Qty: 90 1RF amlodipine 10 mg tablet 10 mg PO DAILY Qty: 90 1RF Entresto 49-51 mg tablet 1 tab PO BID Qty: 60 5RF empagliflozin 10 mg tablet 10 mg PO DAILY Qty: 90 3RF acetaminophen 500 mg capsule 1,000 mg PO Q6H PRN (Reason: pain (scale score 7-10)) Qty: 60 0RF sildenafil 25 mg tablet 25 mg PO DAILY PRN (Reason: sexual activity) Qty: 10 2RF Rx Instructions: administer 30 minutes to 4 hours before activity latanoprost 0.005 % drops 1 drp ophthalmic (eye) BEDTIME albuterol sulfate 90 mcg/actuation HFA aerosol inhaler 1 inh inhalation QID PRN (Reason: shortness of breath or wheezing) Qty: 6.7 0RF Print Language: Burmese
--- NOTE | 2024-12-05 14:09 | PC.NURSE ---
at bedside speaking with patient. Patient refusing to await a CT scan. Plan for discharge home with antibiotics for bursitis to left elbow.
[2024-12-05 14:17] LABS: Erythrocyte Sedimentation Rate 10 MM/HR (0-15)
--- OUTSIDE RECORDS SUMMARY | 2024-12-05 16:19 | XMS_ITS | Encounter Summary ---
Author Organization [facility] Address [address] [place] [address] Phone Care Team Providers Care Electrical Project Engineer Name Role Phone Rodger Yeung NP Primary Care Provider [phone] Encounter Details Date Type Department Care Team ([facility] Contact Info) Description 07/21/2022 Documentation Only [facility] [address] [place] [phone] Todd Calderon MD [address] [place] [address] [place] [phone] Social History Tobacco Use Types Packs/Day Years Used Date Smoking Tobacco: Never Sex and Gender Information Value Date Recorded Sex Assigned at Not on file Legal Sex Male 8:00 AM EST Gender Identity Not on file Sexual Orientation Not on file documented as of this encounter Plan of Treatment Upcoming Encounters Date Type Department Care Team ([facility] Contact Info) Description 09/18/2025 1:45 PM EST Office Visit [facility] [address] [place] [address] Todd Calderon MD [address] [facility] [place] [address] documented as of this encounter Visit Diagnoses Not on filedocumented in this encounter Care Teams Electrical Project Engineer Relationship Specialty Start Date End Date Rodger Yeung NP [address] [place] [address] PCP - General Nurse Practitioner 12/03/20 documented as of this encounter
--- OUTSIDE RECORDS SUMMARY | 2024-12-05 16:19 | XMS_ITS | Encounter Summary ---
Author Organization [facility] Address [address] [place] [address] Phone Care Team Providers Care Screw Down Name Role Phone Rodger Yeung NP Primary Care Provider [phone] Encounter Details Date Type Department Care Team ([facility] Contact Info) Description 11/03/2021 Documentation Only [facility] [address] [place] [phone] Todd Calderon MD [address] [place] [address] [place] [phone] Social History Tobacco Use Types Packs/Day Years Used Date Smoking Tobacco: Never Sex and Gender Information Value Date Recorded Sex Assigned at Not on file Legal Sex Male 8:00 AM EST Gender Identity Not on file Sexual Orientation Not on file documented as of this encounter Plan of Treatment Upcoming Encounters Date Type Department Care Team ([facility] Contact Info) Description 09/18/2025 1:45 PM EST Office Visit [facility] [address] [place] [address] Todd Calderon MD [address] [facility] [place] [address] documented as of this encounter Visit Diagnoses Not on filedocumented in this encounter Care Teams Screw Down Relationship Specialty Start Date End Date Rodger Yeung NP [address] [place] [address] PCP - General Nurse Practitioner 12/03/20 documented as of this encounter
--- OUTSIDE RECORDS SUMMARY | 2024-12-05 16:19 | XMS_ITS | Clinical Summary ---
Author Organization [facility] Address [address] [place] [address] Phone Care Team Providers Care Optical Glass Inspector Name Role Phone Rodger Yeung NP Primary Care Provider [phone] Allergies Active Allergy Reactions Criticality Noted Date [...] Only [facility] [address] [place] [phone] Zahraa Asencio MA 09/16/2024 Documentation Only [facility] [address] [place] [address] Zahraa Asencio MA 09/12/2024 1:45 PM EST Office Visit [facility] [address] [place] [address] Todd Calderon MD Chronic kidney disease, stage [...] Visit [facility] [address] [place] [address] Todd Calderon MD [address] [place] [address] [place] [address] Health Maintenance Due Date Last Done Comments Pneumococcal Vaccine: 65+ Ye ars (1 of 2 - PCV) 01/23/1964 Colorectal Cancer Screening: Annual FOBT 2007 Colorectal Cancer Screening: Colonoscopy 2007 Colorectal Cancer Screening: Sigmoidoscopy 2007 Influenza Vaccine (#1) 2024 Hepatitis B Vaccine Aged Out No longe r eligible based on patient's age to complete this topic Insurance [employer] MCR ADV PPO ([id number]) Care Teams Optical Glass Inspector Relationship Specialty Start Date End Date Rodger Yeung NP [address] [place] [address] PCP - General Nurse Practitioner 12/03/20
--- OUTSIDE RECORDS SUMMARY | 2024-12-05 16:19 | XMS_ITS | Encounter Summary ---
Author Organization [facility] Address [address] [place] [address] Phone Care Team Providers Care Asp Developer Name Role Phone Rodger Yeung NP Primary Care Provider [phone] Encounter Details Date Type Department Care Team (Late Contact Info) Description 09/16/2024 Documentation Only [facility] [address] [place] [address] Zahraa Asencio [place] [address] [place] [phone] Social History Tobacco Use Types Packs/Day Years [...] Visit [facility] [address] [place] [address] Todd Calderon MD [address] [place] [address] [place] [address] documented as of this encounter Visit Diagnoses Not on filedocumented in this encounter Care Teams Asp Developer Relationship Specialty Start Date End Date Rodger Yeung NP [address] [place], [place] [phone] PCP - General Nurse Practitioner 12/03/20 documented as of this encounter
--- OUTSIDE RECORDS SUMMARY | 2024-12-05 16:19 | XMS_ITS | Encounter Summary ---
Author Organization [facility] Address [address] [place] [address] Phone Care Team Providers Care Veneer Sawyer Name Role Phone Rodger Yeung NP Primary Care Provider [phone] Encounter Details Date Type Department Care Team ([facility] Contact Info) Description 09/09/2023 Documentation Only [facility] [address] [place] [phone] Todd Calderon MD [address] [place] [address] [place] [phone] Social History Tobacco Use Types Packs/Day Years Used Date Smoking Tobacco: Never Sex and Gender Information Value Date Recorded Sex Assigned at Not on file Legal Sex Male 8:00 AM EST Gender Identity Not on file Sexual Orientation Not on file documented as of this encounter Plan of Treatment Upcoming Encounters Date Type Department Care Team ([facility] Contact Info) Description 09/18/2025 1:45 PM EST Office Visit [facility] [address] [place] [address] Todd Calderon MD [address] [facility] [place] [address] documented as of this encounter Visit Diagnoses Not on filedocumented in this encounter Care Teams Veneer Sawyer Relationship Specialty Start Date End Date Rodger Yeung NP [address] [place] [address] PCP - General Nurse Practitioner 12/03/20 documented as of this encounter
--- OUTSIDE RECORDS SUMMARY | 2024-12-05 16:19 | XMS_ITS | Encounter Summary ---
Author Organization [facility] Address [address] [place] [address] Phone Care Team Providers Care Hog Counter Name Role Phone Rodger Yeung NP Primary Care Provider [phone] Encounter Details Date Type Department Care Team (Late Contact Info) Description 09/16/2024 Documentation Only [facility] [address] [place] [address] Zahraa Asencio [place] [address] [place] [phone] Social History Tobacco Use Types Packs/Day Years [...] Visit [facility] [address] [place] [phone] Todd Calderon MD [address] [place] [address] [place] [address] documented as of this encounter Visit Diagnoses Not on filedocumented in this encounter Care Teams Hog Counter Relationship Specialty Start Date End Date Rodger Yeung NP [address] [place], [place] [phone] PCP - General Nurse Practitioner 12/03/20 documented as of this encounter
--- OUTSIDE RECORDS SUMMARY | 2024-12-05 16:19 | XMS_ITS | Encounter Summary ---
Author Organization [facility] Address [address] [place] [address] Phone Care Team Providers Care Administration Specialist Name Role Phone Rodger Yeung NP Primary Care Provider [phone] Encounter Details Date Type Department Care Team (Late Contact Info) Description 12/05/2022 Documentation Only [facility] [address] [place] [phone] Todd Calderon MD [address] [place] [address] [place] [phone] Social History Tobacco Use Types Packs/Day Years [...] Visit [facility] [address] [place] [address] Todd Calderon MD [address] [facility] [place] [address] documented as of this encounter Visit Diagnoses Not on filedocumented in this encounter Care Teams Administration Specialist Relationship Specialty Start Date End Date Rodger Yeung NP [address] [place] [address] PCP - General Nurse Practitioner 12/03/20 documented as of this encounter
== END 2024-12-05 14:21 | disposition home or self-care (01) ==
PROVIDERS: Physician Assistant Medical; Emergency Provider Emergency Medicine; PCP Nurse Practitioner Family
DX: M71.122 Other infective bursitis, left elbow (principal); Z79.899 Other long term (current) drug therapy
CPT/HCPCS: 36415; 80053; 83735; 85025; 85652; 86140; 99212; 99283

== ENCOUNTER 2024-12-07 10:09 | Outpatient (AMB) | payer MEDICARE, SELFPAY ==
--- NOTE | 2024-12-07 10:44 | AM.OFFWIN_ITS ---
Intake Vital Signs 12/07/24 10:47 Weight 205 lb BP 126/70 Blood Pressure Location Rt brachial Position Sitting Pulse 66 Pulse Source Pulse Oximeter Pulse Oximetry (%) 95 Oxygen Delivery Method Room Air Intake Visit Reasons: EP Lt elbow swelling Intake Note: Patient here for left elbow swelling that has worsened over the past couple of days. Patient Tobacco Use Status: Never used Tobacco Allergies Heparin Combination Allergy (Severe, Uncoded 12/07/24 10:45) Anaphylaxis Medication List - Last Reconciled 12/07/24 by Azalia Perez MD acetaminophen 1,000 mg (2 x 500 mg) PO Q6H PRN albuterol sulfate 90 mcg/actuation 1 inh inhalation QID PRN amlodipine 10 mg PO DAILY amoxicillin-pot clavulanate 875-125 mg 1 tab PO BID aspirin 81 mg PO DAILY atorvastatin 80 mg PO DAILY clopidogrel 75 mg PO DAILY doxycycline hyclate 100 mg PO BID 7 days empagliflozin 10 mg PO DAILY ezetimibe 10 mg PO DAILY hydrocodone-acetaminophen 5-325 mg 1 tab PO Q6H PRN latanoprost 0.005% 1 drp ophthalmic (eye) BEDTIME metoprolol tartrate 25 mg PO BID sacubitril-valsartan 49-51 mg (Entresto) 1 tab PO BID sildenafil 25 mg PO DAILY PRN HPI EP Lt elbow swelling HPI Details History - The patient is a 64-year-old male pres enting with a worsening elbow condition. Left side Patient was evaluated on of this month at our walk-in clinic and was recommended to go to emergency room for further management He went to emergency room but left without having proper care as he could not wait any longer - Originally recommended for CT imaging due to elbow complaints - in emergency room he was given script for doxycycline and Augmentin Patient is only taking Augmentin as he felt doxycycline will interact with his other medications - Lack of improvement in symptoms sugges ts possible infection unresponsive to current oral antibiotics, necessitating consideration of possible intravenous therapy. - Swelling and discomfort noted to persi st and getting worse, impacting daily activities, including occupational responsibilities. - Management of pain hindered by adverse reactions to potent analgesics, patient prefers milder alternatives like Tylenol. 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 - Use Tylenol as needed for pain managem ent, avoiding stronger medications as preferred. - Consider returning to emergency servic es for further management - Levaquin sent Review system - General: No fever no chills - Neurological: No headaches no dizziness - Ear nose throat: No sore throat no hearing difficulty no ear pain - Cardiovascular: No syncope, no chest pain, no palpitations - Gastrointestinal: No nausea vomiting or diarrhea - Endocrine: No polyuria polydipsia no heat intolerance - Genitourinary: No dysuria , no blood in urine Physical Exam General: No acute distress HEENT: No acute findings Neck: Supple Respiratory system: Able to talk in full sentences, no audible wheeze cardiovascular: S1-S2 regular in rate and rhythm Gastrointestinal: No pain Extremities: Swelling noted in the left elbow, erythema noted, having difficulty extending all the way METAL WASHING MACHINE OPERATOR: Alert awake oriented x3 motor sensory intact Skin: Normal turgor PFSH Medical History Proteinuria Fatty liver Cardiogenic shock Myocardial infarct CKD (chronic kidney disease) Hyperparathyroidism Heparin induced thrombocytopenia CRI (chronic renal insufficiency) Pulmonary embolism Coronary artery disease Renal insufficiency Hyperlipidemia Hypertension Surgical History Stented coronary artery History of open heart surgery Family History Father Unknown family medical history Mother HTN (hypertension) Other Substance use disorder Social History Housing: Other Patient Tobacco Use Status: Never used Tobacco e-Cigarette/Vaping Use: Never Used Second Hand Smoke Exposure: Yes Current occupational status: retired Cognitive needs: No Hearing needs: No Vision needs: No Physical Exam Vital Signs: Last Vital Signs Pulse 66 12/07/24 10:47 BP 126/70 12/07/24 10:47 Pulse Ox 95 12/07/24 10:47 Oxygen Delivery Method Room Air 12/07/24 10:47 Assessment & Plan Assessment & Plan (1) Swelling of left elbow: Code(s): M25.422 - Effusion, left elbow (2) Septic arthritis: Code(s): M00.9 - Pyogenic arthritis, unspecified Qualifiers: Septic arthritis location: elbow Septic arthritis organism: due to other bacteria Laterality: left Qualified Code(s): M00.822 - Arthritis due to other bacteria, left elbow Plan History - The patient is a 64-year-old male presenting with a worsening elbow condition. Left side Patient was evaluated on of this month at our walk-in clinic and was recommended to go to emergency room for further management He went to emergency room but left without having proper care as he could not wait any longer - Originally recommended for CT imaging due to elbow complaints - in emergency room he was given script for doxycycline and Augmentin Patient is only taking Augmentin as he felt doxycycline will interact with his other medications - Lack of improvement in symptoms suggests possible infection unresponsive to current oral antibiotics, necessitating consideration of possible intravenous therapy. - Swelling and discomfort noted to persist and getting worse, impacting daily activities, including occupational responsibilities. - Management of pain hindered by adverse reactions to potent analgesics, patient prefers milder alternatives like Tylenol. 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 - Use Tylenol as needed for pain management, avoiding stronger medications as preferred. - Consider returning to emergency services for further management - Levaquin sent Orders: Orders XR elbow LT 2V Today M25.422 - Effusion, left elbow Medications: New levofloxacin 500 mg PO DAILY 5 days 5 tabs 0RF Changed From acetaminophen 1,000 mg (2 x 500 mg) PO Q6H PRN 60 caps 0RF pain (scale score 7-10) M17.11 - Unilateral primary osteoarthritis, right knee To acetaminophen 1,000 mg (2 x 500 mg) PO TID PRN 60 caps 0RF pain (scale score 7-10) M17.11 - Unilateral primary osteoarthritis, right knee Discontinued doxycycline hyclate Discontinued Reason: Doctor's Order 100 mg PO BID 7 days 14 caps 0RF Coding Level of Care Code Est Pt Level 4 (12487) Diagnoses Swelling of left elbow M25.422 Arthritis of left elbow due to other bacteria M00.822 Septic arthritis location: elbow Septic arthritis organism: due to other bacteria Laterality: left
[2024-12-07 10:47] VITALS: BP 126/70; PULSE 66; O2SAT 95
--- OUTSIDE RECORDS SUMMARY | 2024-12-07 12:17 | XMS_ITS | Encounter Summary ---
Author Organization [facility] Address [address] [place] [address] Phone Care Team Providers Care Panel Machine Tender Name Role Phone Rodger Yeung NP Primary Care Provider [phone] Encounter Details Date Type Department Care Team ([facility] Contact Info) Description 11/03/2021 Documentation Only [facility] [address] [place] [address] Todd Calderon MD [address] [place] [address] [place] [address] Social History Tobacco Use Types Packs/Day Years Used Date Smoking Tobacco: Never Sex and Gender Information Value Date Recorded Sex Assigned at Not on file Legal Sex Male 8:00 AM EST Gender Identity Not on file Sexual Orientation Not on file documented as of this encounter Plan of Treatment Upcoming Encounters Date Type Department Care Team ([facility] Contact Info) Description 09/18/2025 1:45 PM EST Office Visit [facility] [address] [place] [address] Todd Calderon MD [address] [facility] [place] [address] documented as of this encounter Visit Diagnoses Not on filedocumented in this encounter Care Teams Panel Machine Tender Relationship Specialty Start Date End Date Rodger Yeung NP [address] [place] [address] PCP - General Nurse Practitioner 12/03/20 documented as of this encounter
--- OUTSIDE RECORDS SUMMARY | 2024-12-07 12:17 | XMS_ITS | Clinical Summary ---
Author Organization [facility] Address [address] [place] [address] Phone Care Team Providers Care Parachute Harness Rigger Name Role Phone Rodger Yeung NP Primary Care Provider [phone] Allergies Active Allergy Reactions Criticality Noted Date [...] Only [facility] [address] [place] [address] Zahraa Asencio MA 09/16/2024 Documentation Only [facility] [address] [place] [address] Zahraa Asencio MA 09/12/2024 1:45 PM EST Office Visit [facility] [address] [place] [address] Todd Calderon MD Chronic kidney disease, stage [...] Visit [facility] [address] [place] [address] Todd Calderon MD [address] [place] [address] [place] [address] Health Maintenance Due Date Last Done Comments Pneumococcal Vaccine: 65+ Ye ars (1 of 2 - PCV) 01/23/1964 Colorectal Cancer Screening: Annual FOBT 2007 Colorectal Cancer Screening: Colonoscopy 2007 Colorectal Cancer Screening: Sigmoidoscopy 2007 Influenza Vaccine (#1) 2024 Hepatitis B Vaccine Aged Out No longe r eligible based on patient's age to complete this topic Insurance [employer] MCR ADV PPO ([id number]) Care Teams Parachute Harness Rigger Relationship Specialty Start Date End Date Rodger Yeung NP [address] [place] [address] PCP - General Nurse Practitioner 12/03/20
--- OUTSIDE RECORDS SUMMARY | 2024-12-07 12:17 | XMS_ITS | Encounter Summary ---
Author Organization [facility] Address [address] [place] [address] Phone Care Team Providers Care Clinical Lab Specialist Name Role Phone Rodger Yeung NP Primary Care Provider [phone] Encounter Details Date Type Department Care Team (Late Contact Info) Description 12/05/2022 Documentation Only [facility] [address] [place] [address] Todd Calderon MD [address] [place] [address] [place] [phone] Social History Tobacco Use Types Packs/Day Years Used Date Smoking Tobacco: Never Sex and Gender Information Value Date Recorded Sex Assigned at Not on file Legal Sex Male 8:00 AM EST Gender Identity Not on file Sexual Orientation Not on file documented as of this encounter Plan of Treatment Upcoming Encounters Date Type Department Care Team ([facility] Contact Info) Description 09/18/2025 1:45 PM EST Office Visit [facility] [address] [place] [address] Todd Calderon MD [address] [facility] [place] [address] documented as of this encounter Visit Diagnoses Not on filedocumented in this encounter Care Teams Clinical Lab Specialist Relationship Specialty Start Date End Date Rodger Yeung NP [address] [place] [address] PCP - General Nurse Practitioner 12/03/20 documented as of this encounter
--- OUTSIDE RECORDS SUMMARY | 2024-12-07 12:17 | XMS_ITS | Encounter Summary ---
Author Organization [facility] Address [address] [place] [address] Phone Care Team Providers Care Hydrotechnical Specialist Name Role Phone Rodger Yeung NP Primary Care Provider [phone] Encounter Details Date Type Department Care Team (Late Contact Info) Description 09/16/2024 Documentation Only [facility] Of [address] [place] [address] Zahraa [place], [place] [address] [place] [address] Social History Tobacco Use Types Packs/Day Years [...] [facility] [address] [place] [address] Todd Calderon MD [address] [place] [address] [place] [address] documented as of this encounter Visit Diagnoses Not on filedocumented in this encounter Care Teams Hydrotechnical Specialist Relationship Specialty Start Date End Date Rodger Yeung NP [address] [place], [place] [phone] PCP - General Nurse Practitioner 12/03/20 documented as of this encounter
--- OUTSIDE RECORDS SUMMARY | 2024-12-07 12:17 | XMS_ITS | Encounter Summary ---
Author Organization [facility] Address [address] [place] [address] Phone Care Team Providers Care Engineering Aid Name Role Phone Rodger Yeung NP Primary Care Provider [phone] Encounter Details Date Type Department Care Team ([facility] Contact Info) Description 07/21/2022 Documentation Only [facility] [address] [place] [address] Todd Calderon MD [address] [place] [address] [place] [address] Social History Tobacco Use Types Packs/Day Years Used Date Smoking Tobacco: Never Sex and Gender Information Value Date Recorded Sex Assigned at Not on file Legal Sex Male 8:00 AM EST Gender Identity Not on file Sexual Orientation Not on file documented as of this encounter Plan of Treatment Upcoming Encounters Date Type Department Care Team ([facility] Contact Info) Description 09/18/2025 1:45 PM EST Office Visit [facility] [address] [place] [address] Todd Calderon MD [address] [facility] [place] [address] documented as of this encounter Visit Diagnoses Not on filedocumented in this encounter Care Teams Engineering Aid Relationship Specialty Start Date End Date Rodger Yeung NP [address] [place] [address] PCP - General Nurse Practitioner 12/03/20 documented as of this encounter
--- OUTSIDE RECORDS SUMMARY | 2024-12-07 12:17 | XMS_ITS | Encounter Summary ---
Author Organization [facility] Address [address] [place] [address] Phone Care Team Providers Care Tip Scourer Name Role Phone Rodger Yeung NP Primary Care Provider [phone] Encounter Details Date Type Department Care Team ([facility] Contact Info) Description 09/09/2023 Documentation Only [facility] [address] [place] [address] Todd Calderon MD [address] [place] [address] [place] [address] Social History Tobacco Use Types Packs/Day Years Used Date Smoking Tobacco: Never Sex and Gender Information Value Date Recorded Sex Assigned at Not on file Legal Sex Male 8:00 AM EST Gender Identity Not on file Sexual Orientation Not on file documented as of this encounter Plan of Treatment Upcoming Encounters Date Type Department Care Team ([facility] Contact Info) Description 09/18/2025 1:45 PM EST Office Visit [facility] Of [address] [place] [address] Todd Calderon MD [address] [facility] [place] [address] documented as of this encounter Visit Diagnoses Not on filedocumented in this encounter Care Teams Tip Scourer Relationship Specialty Start Date End Date Rodger Yeung NP [address] [place] [address] PCP - General Nurse Practitioner 12/03/20 documented as of this encounter
--- OUTSIDE RECORDS SUMMARY | 2024-12-07 12:17 | XMS_ITS | Patient Health Record ---
Author Organization [facility] tabitha Newland Address [address] [facility] [place] [address] Care Team Providers Care Die Hardener Name Role Phone Rodger Fox Primary Care Provider Yanna Padron Unavailable [phone] Allergies Allergen (clinical drug ingredient) Drug/Non Drug Allergy documented on EMR Reaction Allergy Type Onset Date Status heparin Heparin Unknown Drug Allergy Active Reason For Referral No Information Medications Medication SIG (Take, Route, Fr equency, Duration) Notes Start Date End Date Status amLODIPine Besylate Active Atorvastatin Calcium Active Ezetimibe Active Jardiance Active Ciclopirox 0.77 % 1 application Infusion Nurse ally Once a day for 30 days [...] 09/26/2024 Encounters Encounter Location Date Provider Diagnosis [facility] [address] [facility] [place] [address] 08/15/2024 Yanna Canas Pain in right toe(s) M79.674 ; Onychomycosis B35.1 and Pain in left toe(s) M79.[address] [facility] [address] 09/26/2024 Yannatomas Canas Pain in right toe(s) M79.674 ; Onychomycosis B35.1 and Pain in left toe(s) M79.[address] [address] 07/15/2024 [facility]as [facility] [address] 08/11/2024 Yanna Canas [facility] [address] 09/29/2024 Yanna Canas Assessments Encounter Date Diagnosis [...] Details Provider Name:Ruth wood, 12/13/2024 09:15:00 AM, [address] [place] [address], [phone], Provider Name:Yanna khan, 02/23/2025 10:00:00 AM, [address] [place] [address], [phone], Insurance Providers Payer Name Payer Address Payer Phone Subscriber Number Group Number Insured Name Patient Relationship to Insured Coverage Start Date Coverage End Date [employer] [address] VITO Walker [phone] [id number] Jaime Chapin Self - patient is the insured Medical (General) History Medical History History ICD Code High Blood Pressure Transfusions Surgical History Surgery Date(Month/Year) heart surgery unspecified 2015
--- OUTSIDE RECORDS SUMMARY | 2024-12-07 12:17 | XMS_ITS ---
Author Organization [facility] Address [address] [facility] [place] [address] Care Team Providers Care Dietary Manager Name Role Phone Rodger Fox Primary Care Provider Evonnev Yanna Tirado Unavailable [phone] Allergies Allergen (clinical drug ingredient) Drug/Non Drug [...] Bisulfate Active Ciclopirox 0.77 % 1 application Billing And Quality Technician ally Once a day for 30 days [...] 08/15/2024 Encounters Encounter Location Date Provider Diagnosis [facility] [address] [place] [address] 08/15/2024 Yanna Canas Pain in right toe(s) [...] Date Notes Ciclopirox 0.77 % 1 application Billing And Quality Technician ally Once a day for 30 days Treatment Notes Assessment Notes Onychomycosis Patient Educated wit h: FUNGUS NAIL INFECTIONS.pdf (FUNGUS NAIL INFECTIONS.pdf) Pending Test Test Name Order Date *Liver Function Test (LFT) 08/15/2024 Next Appt Details Follow Up: 6 weeks, Reason: Provider Name:Ruth wood, 12/13/2024 09:15:00 AM, [address] [place] [address], [phone], Provider Name:Yanna khan, 02/23/2025 10:00:00 AM, [address] [place] [address], [phone], Progress Notes * Jaime CHAPINDOB:1960 (64 yo M)Acc No.[id number]:08/15/2024 Progress Notes Patient:?Jaime Chapin Provider:?Yanna Canas DPM :1960???Age:64 Y???Sex:Male Rodolfo e:08/15/2024 Address:[address] [place], [place] [id number] Pcp:YORDY Alcocer Subjective: * Chief Complaints: * ???Pcp-05/04Fungal Nails * HPI: ???Painful Nails:?Nature:?aching, tender, discolored, thick.?Location:?Both feet, all toenails.?Duration:?several years.?Course:?worse.?Aggravated by:?shoegear causing difficulty standing/walking.?Treatments:?none, Debridement, topical treatment, toenails removed by police reserves commander years ago,?was not successful.? * ROS:?General/Constitutional:?Nausea?denies.?Vomiting?denies.?Hunger Thirst?denies.?Loss [...] ?no Exercise. ?Marital status: . 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 * Medications:?TakingClopidogr el Bisulfate Entresto [...] Canas DPM Date:?10/15/2023 Generated for Marichuy rangel/Ekaterina/eTransmitting on:?12/07/2024 12:17 PM EST History and Physical Notes * HPI (History of Present Illness) Category Sub-Category Detail Notes Category Not es Painful Nails Aggravated by: shoegear causing difficulty standing/walking Course: worse Duration: several years Location: Both feet, all toena ils Nature: aching, tender, disc olored, thick Treatments: none, Debridement, t opical treatment, toenails removed by police reserves commander years ago, was not successful Examination Category [...]
--- OUTSIDE RECORDS SUMMARY | 2024-12-07 12:17 | XMS_ITS ---
Author Organization [facility] Address [address] [place] [address] Care Team Providers Care Screenplay Writer Name Role Phone Rodger Fox Primary Care Provider Unav Yanna Tirado Unavailable [phone] REASON FOR VISIT Lab results Medications Medication SIG (Take, Route, Fr equency, Duration) Notes Start Date End Date Status Terbinafine HCl 250 MG 1 tablet Orally O nce a day for 30 days 09/29/2024 Active Encounters Encounter Location Date Provider Diagnosis [address] [address] 09/29/2024 Yanna Canas Plan Of Treatment Medication Medication Name Sig Start Date Stop Date Notes Terbinafine HCl 250 MG 1 tablet Orally O nce a day for 30 days 09/29/2024 Next Appt Details Provider Name:Ruth wood, 12/13/2024 09:15:00 AM, [address] [place] [address], [phone], Provider Name:Yanna khan, 02/23/2025 10:00:00 AM, [address] [place] [address], [phone], Progress Notes * Jaime CHAPINDOB:1960 (64 yo M)Acc No.[id number]:09/29/2024 Patient:?Jaime CHAPIN :1960???Age:64 Y???Sex:Male Address:[address] [place] [address] * Refills? Start Terbinafine HCl Tablet, 250 MG, Orally, 30 Tablet, 1 tablet, Once a day, 30 days, Refills=1 * true * Date:? Generated for Marichuy rangel/Ekaterina/Lisa on:?12/07/2024 12:16 PM EST
--- OUTSIDE RECORDS SUMMARY | 2024-12-07 12:17 | XMS_ITS | Encounter Summary ---
Author Organization [facility] Address [address] [place] [address] Phone Care Team Providers Care Host/Hostess Ground Name Role Phone Rodger Yeung NP Primary Care Provider Encounter Details Date Type Department Care Team (Late Contact Info) Description 09/16/2024 Documentation Only [facility] [address] [place] [address] Zahraa Asenc[place]RIET[place], [place] [address] [place] [phone] Social History Tobacco Use Types Packs/Day Years [...] Visit [facility] [address] [place] [address] Todd Calderon MD [address] [place] [address] [place] [address] documented as of this encounter Visit Diagnoses Not on filedocumented in this encounter Care Teams Host/Hostess Ground Relationship Specialty Start Date End Date Rodger Yeung NP [address] [place], [place] [phone] PCP - General Nurse Practitioner 12/03/20 documented as of this encounter
--- OUTSIDE RECORDS SUMMARY | 2024-12-07 12:17 | XMS_ITS ---
Author Organization [facility] Address [address] [place] [address] Care Team Providers Care Sewer And Drain Technician Name Role Phone Rodger Fox Primary Care Provider Evonnev Yanna Tirado Unavailable [phone] Allergies Allergen (clinical drug ingredient) Drug/Non Drug Allergy documented on EMR Reaction Allergy Type Onset Date Status heparin Heparin Unknown Drug Allergy Active REASON FOR VISIT Pcp-05/04, Fungal Nails Medications Medication SIG (Take, Route, Fr equency, Duration) Notes Start Date End Date Status amLODIPine Besylate Active Atorvastatin Calcium Active Ciclopirox 0.77 % 1 application Aviation Support Equipment Repairer ally Once a day for 30 [...] 09/26/2024 Encounters Encounter Location Date Provider Diagnosis [facility] [address] [place] [address] 09/26/2024 Yanna Canas Pain in right toe(s) [...] Reason: Provider Name:Ruth wood, 12/13/2024 09:15:00 AM, [address] [place] [address], [phone], Provider Name:Yanna khan, 02/23/2025 10:00:00 AM, [address] [place] [address], [phone], Progress Notes * Jaime CHAPINDOB:1960 (64 yo M)Acc No.[id number]:09/26/2024 Progress Notes Patient:?Jaime CHAPIN Provider:?Yanna Canas DPM :1960???Age:64 Y???Sex:Male Rodolfo e:09/26/2024 Address:[address] [place], [place] [address] Pcp:YORDY Alcocer Subjective: * Chief Complaints: * [...] no. ?Marital status: . 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 * Medications:?TakingClopidogr el Bisulfate Entresto Jardiance Ezetimibe [...] DPM Date:?1 11/27/2023 Generated for Marichuy rangel/Ekaterina/eTransmitting on:?12/07/2024 12:17 PM [...]
== END 2024-12-07 11:06 | disposition home or self-care (01) ==
PROVIDERS: PCP Nurse Practitioner Family; Visit Provider Internal Medicine
DX: M25.422 Effusion, left elbow (principal)

== ENCOUNTER → 2024-12-07 10:09 | Outpatient (BNVA) | payer MEDICARE, SELFPAY | PROVIDERS: PCP Nurse Practitioner Family | DX: M25.422 Effusion, left elbow (principal); M00.822 Arthritis due to other bacteria, left elbow | CPT/HCPCS: 99212 ==

== ENCOUNTER 2025-02-15 10:19 | Outpatient (AMB) | payer MEDICARE, SELFPAY ==
--- NOTE | 2025-02-15 10:40 | A.OFFVIS_ITS ---
Vital Signs 02/15/25 10:41 Height 5 ft 6 in Weight 206 lb 5.643 oz BMI 33.3 BP 130/70 Blood Pressure Location Lt brachial Position Sitting Pulse 68 Pulse Source Pulse Oximeter Intake Visit Reasons: 4m follow up Intake Note: 4 tmh f/up Glazing Superintendent Required: No Accompanied by: Self / Same As Patient Allergies Heparin Combination Allergy (Severe, Uncoded 12/07/24 10:45) Anaphylaxis Medication List - Last Reconciled 02/15/25 by Gio Benavides MD acetaminophen 1,000 mg (2 x 500 mg) PO TID PRN albuterol sulfate 90 mcg/actuation 1 inh inhalation QID PRN amlodipine 10 mg PO DAILY amoxicillin 2,000 mg (4 x 500 mg) PO ONCE 1 day aspirin 81 mg PO DAILY atorvastatin 80 mg PO DAILY clopidogrel 75 mg PO DAILY empagliflozin 10 mg PO DAILY ezetimibe 10 mg PO DAILY hydrocodone-acetaminophen 5-325 mg 1 tab PO Q6H PRN latanoprost 0.005% 1 drp ophthalmic (eye) BEDTIME levofloxacin 500 mg PO DAILY 5 days metoprolol tartrate 25 mg PO BID sacubitril-valsartan 49-51 mg (Entresto) 1 tab PO BID sildenafil 25 mg PO DAILY PRN HPI Comments Details: 65-year-old gentleman who is here for 1st office visit. In 2015 he presented with dyspnea and palpitations to [facility] and based on his report he was transferred to [facility] for acute [place]. he had primary PCI performed. He said he was given heparin and unfortunately had a reaction to heparin and developed blood clots which I think was JAMES. We do not have a lot of details of that and we will request records. He said his did CPR and eventually he was in the ICU for 38 days. He has a midline sternotomy scar and I do not know exact details currently. In any case he has recovered since then and has been doing well. He has no chest pains or shortness of breath. Blood pressure is mildly elevated. He is diabetic. He had echocardiography August 2022 which showed inferior inferolateral wall motion abnormality with mild mitral valve regurgitation. RV function was normal. 12/07/2023: He returns for follow-up. He had echocardiography which showed EF 45-50% with moderate mitral valve regurgitation. Posterior mitral valve leaflet appeared to be restricted which I think is related to previous circumflex infarct. I have reviewed his angiography as well as his hospital course at [facility]. He had massive pulmonary embolism for which she required thrombectomy surgically. Clinically, he has been stable. Denying any chest pain or shortness of breath. No congestive heart failure symptoms. 02/24/24: He is here for follow-up. He continues to be asymptomatic. Doing well and feeling better since been on Entresto and Jardiance. He is saying that he is breathing easier and feeling a difference although he did not complain to me previously about any shortness of breath. No signs of heart failure. 06/27/2024: He is here for follow-up. Continues to be active and has no exertional symptoms. No chest discomfort. No symptoms signs of heart failure. Blood pressure is well controlled. EKGs reviewed. Echo was in 10/31/2023 when EF was 45-50% with moderate mitral valve regurgitation. There was akinesis of inferolateral wall, basal inferior and mid inferior wall. Taking medications regularly. 10/31/2024: On follow-up today, he has been doing well. No chest discomfort shortness of breath. No orthopnea or PND. Blood pressure is well controlled. Echocardiography has shown EF 50-55% with trace mitral valve regurgitation. There is significant improvement in the mitral valve regurgitation. He unfortunately had some insurance issues and he is running out of his Entresto and Jardiance in few days. We have provided him with some coupons to see if he can get coverage while he is insurance kicks in. Otherwise he will call us and I will transition him to ARB from Entresto. 02/15/2025: he is here for follow-up. He is back with his insurance and is taking medications regularly. He is on Jardiance and Entresto at this point. Again denying any symptoms currently. [facility] Medical History Proteinuria Fatty liver Cardiogenic shock Myocardial infarct CKD (chronic kidney disease) Hyperparathyroidism Heparin induced thrombocytopenia CRI (chronic renal insufficiency) Pulmonary embolism Coronary artery disease Renal insufficiency Hyperlipidemia Hypertension Surgical History Stented coronary artery History of open heart surgery Family History Father Unknown family medical history Mother HTN (hypertension) Other Substance use disorder Social History Housing: Other Patient Tobacco Use Status: Never used Tobacco e-Cigarette/Vaping Use: Never Used Second Hand Smoke Exposure: Yes Current occupational status: retired Cognitive needs: No Hearing needs: No Vision needs: No Review of Systems Const Denies chills, Denies fatigue, Denies fever(s), Denies frequent falls, Denies weakness, Denies weight gain and Denies weight loss ENT Denies dizziness Card Denies chest pain, Denies leg edema, Denies lightheadedness, Denies palpitations, Denies dyspnea and Denies dyspnea on exertion Resp Denies cough, Denies dyspnea and Denies dyspnea on exertion GI Denies hematochezia Musc Denies abnormal gait, Denies muscle weakness, Denies numbness, Denies radiating pain into limb and Denies tingling Neuro Denies abnormal gait, Denies dizziness, Denies frequent falls, Denies numbness, Denies tingling and Denies weakness Endo Denies fatigue and Denies palpitations Physical Exam Vital Signs: Last Vital Signs Pulse 68 02/15/25 10:41 BP 130/70 02/15/25 10:41 BMI result Body Mass Index 33.3 GENERAL APPEARANCE: in no acute distress, pleasant. NECK: no carotid bruit, no jugular venous distention. SKIN: no suspicious lesions, warm and dry. HEART: Regular rate and rhythm. Grade 2/6 apical holosystolic murmur. LUNGS: clear to auscultation bilaterally. ABDOMEN: soft, nontender. EXTREMITIES: no edema. PERIPHERAL PULSES: equal. NEUROLOGIC: No gross deficits, AAO X 3 Assessment & Plan Assessment & Plan (1) Mitral regurgitation: Code(s): I34.0 - Nonrheumatic mitral (valve) insufficiency Category: Medical (2) Stable angina: Code(s): I20.89 - Other forms of angina pectoris Category: Medical (3) Hypertension: Code(s): I10 - Essential (primary) hypertension Category: Medical Plan 65-year-old gentleman presenting for follow-up. He has known history of previous acute coronary syndrome with left circumflex artery PCI with mild LV dysfunction. He had moderate mitral valve regurgitation by echocardiography in October 2023. Repeat echocardiography in 09/30/2024 while on medical therapy showed EF of 50- 55% with trace mitral valve regurgitation. There was significant improvement in the mitral valve regurgitation. He has no symptoms clinically. ECG is showing sinus rhythm. We discussed about symptoms of progressive mitral valve regurgitation and if he developed any symptoms he will reach out to us. Continue same medications for now. Clinically stable. He will see us back in 6 months. Thank you for allowing me to participate in the care of your patient. Please feel free to contact me if you have any questions. Coding Level of Care Code Est Pt Level 4 (69657) Diagnoses Mitral regurgitation I34.0 Stable angina I20.89 Hypertension I10
[2025-02-15 10:41] VITALS: BP 130/70; PULSE 68; BMI 33.3
--- OUTSIDE RECORDS SUMMARY | 2025-02-15 11:37 | XMS_ITS | Encounter Summary ---
Author Organization [facility] Address [address] [place] [address] Phone Care Team Providers Care Particle Board Supervisor Name Role Phone Rodger Yeung NP Primary Care Provider [phone] Encounter Details Date Type Department Care Team (Late Contact Info) Description 09/16/2024 Documentation Only [facility] [address] [place] [address] Zahraa Asencio [place] [address] [place] [phone] Social History Tobacco Use Types Packs/Day Years [...] Visit [facility] [address] [place] [address] Todd Calderon MD [address] [place] [address] [place] [address] documented as of this encounter Visit Diagnoses Not on filedocumented in this encounter Care Teams Particle Board Supervisor Relationship Specialty Start Date End Date Rodger Yeung NP [address] [place], [place] [phone] PCP - General Nurse Practitioner 12/03/20 documented as of this encounter
--- OUTSIDE RECORDS SUMMARY | 2025-02-15 11:37 | XMS_ITS | Encounter Summary ---
Author Organization [facility] Address [address] [place] [address] Phone Care Team Providers Care Agency Appointments Supervisor Name Role Phone Rodger Yeung NP Primary Care Provider [phone] Encounter Details Date Type Department Care Team (Late Contact Info) Description 09/16/2024 Documentation Only [facility] [address] [place] [address] Zahraa Asencio [place] [address] [place] [phone] Social History Tobacco Use Types Packs/Day Years [...] [facility] [address] [place] [address] Todd Calderon MD [address] [place] [address] [place] [address] documented as of this encounter Visit Diagnoses Not on filedocumented in this encounter Care Teams Agency Appointments Supervisor Relationship Specialty Start Date End Date Rodger Yeung NP [address] [place], [place] [phone] PCP - General Nurse Practitioner 12/03/20 documented as of this encounter
--- OUTSIDE RECORDS SUMMARY | 2025-02-15 11:37 | XMS_ITS | Encounter Summary ---
Author Organization [facility] Address [address] [place] [address] Phone Care Team Providers Care Communications Clerk Name Role Phone Rodger Yeung NP Primary Care Provider [phone] Encounter Details Date Type Department Care Team ([facility] Contact Info) Description 09/09/2023 Documentation Only [facility] [address] [place] [address] Todd Calderon MD [address] [place] [address] [place] [phone] Social History Tobacco Use Types Packs/Day Years Used Date Smoking Tobacco: Never Sex and Gender Information Value Date Recorded Sex Assigned at Not on file Legal Sex Male 8:00 AM EST Gender Identity Not on file Sexual Orientation Not on file documented as of this encounter Plan of Treatment Upcoming Encounters Date Type Department Care Team ([facility] Contact Info) Description 09/18/2025 1:45 PM EST Office Visit [facility] [address] [place] [address] Todd Calderon MD [address] [facility] [place] [address] documented as of this encounter Visit Diagnoses Not on filedocumented in this encounter Care Teams Communications Clerk Relationship Specialty Start Date End Date Rodger Yeung NP [address] [place] [address] PCP - General Nurse Practitioner 12/03/20 documented as of this encounter
--- OUTSIDE RECORDS SUMMARY | 2025-02-15 11:37 | XMS_ITS ---
Author Organization [facility] Address [address] [place] [address] Care Team Providers Care Ethics Instructor Name Role Phone Rodger Fox Primary Care Provider Unav ailable Yanna Canas [phone] REASON FOR VISIT cancel Encounters Encounter Location Date Provider Diagnosis [address] [address] 12/13/2024 Yanna Canas Plan Of Treatment Next Appt Details Provider Name:Yanna khan, 02/23/2025 10:00:00 AM, [address] [place] [address], [phone], Progress Notes * Jaime CHAPINDOB:1960 (64 yo M)Acc No.[id number]:12/13/2024 Patient:?Jaime CHAPIN :1960???Age:64 Y???Sex:Male Address:[address] [place] [address] * true * Date:? Generated for Printi ng/Faxing/eTransmitting on:?02/15/2025 11:36 AM EDT
--- OUTSIDE RECORDS SUMMARY | 2025-02-15 11:37 | XMS_ITS | Encounter Summary ---
Author Organization [facility] Address [address] [place] [address] Phone Care Team Providers Care Regulatory Affairs Analyst Name Role Phone Rodger Yeung NP Primary Care Provider [phone] Encounter Details Date Type Department Care Team (Late Contact Info) Description 12/05/2022 Documentation Only [facility] [address] [place] [phone] Todd Calderon MD [address] [place] [address] [place] [phone] Social History Tobacco Use Types Packs/Day Years Used Date Smoking Tobacco: Never Sex and Gender Information Value Date Recorded Sex Assigned at Not on file Legal Sex Male 8:00 AM EST Gender Identity Not on file Sexual Orientation Not on file documented as of this encounter Plan of Treatment Upcoming Encounters Date Type Department Care Team ([facility] Contact Info) Description 09/18/2025 1:45 PM EST Office Visit [facility] [address] [place] [address] Todd Calderon MD [address] [facility] [place] [address] documented as of this encounter Visit Diagnoses Not on filedocumented in this encounter Care Teams Regulatory Affairs Analyst Relationship Specialty Start Date End Date Rodger Yeung NP [address] [place] [address] PCP - General Nurse Practitioner 12/03/20 documented as of this encounter
--- OUTSIDE RECORDS SUMMARY | 2025-02-15 11:37 | XMS_ITS ---
Author Organization [facility] Address [address] [place] [address] Care Team Providers Care Security Support Analyst Name Role Phone Rodger Fox Primary Care Provider Unav Yanna Tirado Unavailable [phone] REASON FOR VISIT Lab results Medications Medication SIG (Take, Route, Fr equency, Duration) Notes Start Date End Date Status Terbinafine HCl 250 MG 1 tablet Orally O nce a day for 30 days 09/29/2024 Active Encounters Encounter Location Date Provider Diagnosis [address] [address] 09/29/2024 Yanna Canas Plan Of Treatment Medication Medication Name Sig Start Date Stop Date Notes Terbinafine HCl 250 MG 1 tablet Orally O nce a day for 30 days 09/29/2024 Next Appt Details Provider Name:Yanna khan, 02/23/2025 10:00:00 AM, [address] [place] [address], [phone], Progress Notes * Jaime CHAPINDOB:1960 (64 yo M)Acc No.[id number]:09/29/2024 Patient:?Jaime CHAPIN :1960???Age:64 Y???Sex:Male Address:[address] [place] [address] * Refills? Start Terbinafine HCl Tablet, 250 MG, Orally, 30 Tablet, 1 tablet, Once a day, 30 days, Refills=1 * true * Date:? Generated for Marichuy rangel/Ekaterina/Angelitting on:?02/15/2025 11:36 AM EDT
--- OUTSIDE RECORDS SUMMARY | 2025-02-15 11:37 | XMS_ITS | Patient Health Record ---
Author Organization [facility] Address [address] [facility] [place] [address] Care Team Providers Care Equipment Maintenance Superintendent Name Role Phone Rodger Fox Primary Care Provider Yanna Padron Unavailable [phone] Ruth Miller Unavailable [phone] Allergies Allergen (clinical drug ingredient) Drug/Non Drug Allergy documented on EMR Reaction Allergy Type Onset Date Status heparin Heparin Unknown Drug Allergy Active Reason For Referral No Information Medications Medication SIG (Take, Route, Fr equency, Duration) Notes Start Date End Date Status Terbinafine HCl 250 MG 1 tablet Orally O nce a day for 30 days 09/29/2024 Active Clopidogrel Bisulfate Active Entresto Active Jardiance Active Ezetimibe Active Atorvastatin Calcium Active amLODIPine Besylate Active Metoprolol Succinate Active Latanoprost Active Ciclopirox 0.77 % 1 application Hand Bootmaker ally Once a day for 30 days [...] 09/26/2024 Encounters Encounter Location Date Provider Diagnosis [facility] [address] [place] [address] 08/15/2024 Yanna Canas Pain in right toe(s) M79.674 ; Onychomycosis B35.1 and Pain in left toe(s) M79.675 [facility] [address] 09/26/2024 Yanna Canas Pain in right toe(s) M79.674 ; Onychomycosis B35.1 and Pain in left toe(s) M79.[address] [facility] [address] 07/15/2024 [facility] [address] 08/11/2024 Yanna Canas [facility] [address] 09/29/2024 Yanna Canas [address] [address] 12/13/2024 Yanna Canas Assessments Encounter Date Diagnosis (ICD [...] Test (LFT) 09/26/2024 Next Appt Details Provider Name:Yanna hkan, 02/23/2025 10:00:00 AM, [address] [place] [address], [phone], Insurance Providers Payer Name Payer Address Payer Phone Subscriber Number Group Number Insured Name Patient Relationship to Insured Coverage Start Date Coverage End Date Aetna [address] [place] [phone] [id number] Jaime Chapin Self - patient is the insured Medical (General) History Medical History History ICD Code High Blood Pressure Transfusions Surgical History Surgery Date(Month/Year) heart surgery unspecified 2015
--- OUTSIDE RECORDS SUMMARY | 2025-02-15 11:37 | XMS_ITS | Encounter Summary ---
Author Organization [facility] Address [address] [place] [address] Phone Care Team Providers Care Data Developer Name Role Phone Rodger Yeung NP Primary Care Provider [phone] Encounter Details Date Type Department Care Team ([facility] Contact Info) Description 07/21/2022 Documentation Only [facility] [address] [place] [phone] Todd Calderon MD [address] [place] [address] [place] [phone] Social History Tobacco Use Types Packs/Day Years Used Date Smoking Tobacco: Never Sex and Gender Information Value Date Recorded Sex Assigned at Not on file Legal Sex Male 8:00 AM EST Gender Identity Not on file Sexual Orientation Not on file documented as of this encounter Plan of Treatment Upcoming Encounters Date Type Department Care Team ([facility] Contact Info) Description 09/18/2025 1:45 PM EST Office Visit [facility] [address] [place] [address] Todd Calderon MD [address] [facility] [place] [address] documented as of this encounter Visit Diagnoses Not on filedocumented in this encounter Care Teams Data Developer Relationship Specialty Start Date End Date Rodger Yeung NP [address] [place] [address] PCP - General Nurse Practitioner 12/03/20 documented as of this encounter
--- OUTSIDE RECORDS SUMMARY | 2025-02-15 11:37 | XMS_ITS | Clinical Summary ---
Author Organization [facility] [place], Address [address] [place] [address] [place] [address] Phone Care Team Providers Care Forestry Hunter Name Role Phone Rodger Yeung NP Primary Care Provider [phone] Allergies Active Allergy Reactions Criticality Noted Date [...] Acute nontraumatic kidney injury 12/28/2020 Proteinuria 12/28/2020 Family History Medical History Relation Comments Hypertension [...] Visit [facility] [place], [address] [facility] [place] [address] Todd Calderon MD [address] [facility] [place] [phone] Health Maintenance Due Date Last Done Comments Pneumococcal Vaccine: 50+ Ye ars (1 of 2 - PCV) 1977 Colorectal Cancer Screening: Annual FOBT 2007 Colorectal Cancer Screening: Colonoscopy 2007 Colorectal Cancer Screening: Sigmoidoscopy 2007 Influenza Vaccine (Season Ended) 2025 Hepatitis B Vaccine Aged Out No longe r eligible based on patient's age to complete this topic Insurance Aetna MCR Adv PPO ([id number]) Care Teams Forestry Hunter Relationship Specialty Start Date End Date Rodger Yeung NP [address] [place] [address] PCP - General Nurse Practitioner 12/03/20
--- OUTSIDE RECORDS SUMMARY | 2025-02-15 11:37 | XMS_ITS | Encounter Summary ---
Author Organization [facility] Address [address] [place] [address] Phone Care Team Providers Care Senior Internal Auditor Name Role Phone Rodger Yeung NP Primary Care Provider [phone] Encounter Details Date Type Department Care Team ([facility] Contact Info) Description 11/03/2021 Documentation Only [facility] [address] [place] [phone] Todd Calderon MD [address] [place] [address] [place] [phone] Social History Tobacco Use Types Packs/Day Years [...] [facility] [address] [place] [address] Todd Calderon MD [address] [facility] [place] [address] documented as of this encounter Visit Diagnoses Not on filedocumented in this encounter Care Teams Senior Internal Auditor Relationship Specialty Start Date End Date Rodger Yeung NP [address] [place] [address] PCP - General Nurse Practitioner 12/03/20 documented as of this encounter
--- OUTSIDE RECORDS SUMMARY | 2025-02-15 11:37 | XMS_ITS ---
Author Organization [facility] Address [address] [place] [address] Care Team Providers Care Tab Machine Operator Name Role Phone Rodger Fox Primary Care Provider Yanna Padron Unavailable [phone] Ruth Miller Unavailable [phone] Allergies Allergen (clinical drug ingredient) Drug/Non Drug Allergy documented on EMR Reaction Allergy Type Onset Date Status heparin Heparin Unknown Drug Allergy Active Medications Medication SIG (Take, Route, Fr equency, Duration) Notes Start Date End Date Status Terbinafine HCl 250 MG 1 tablet Orally O nce a day for 30 days 09/29/2024 Active amLODIPine Besylate Active Metoprolol Succinate Active Latanoprost Active Ciclopirox 0.77 % 1 application Licensed Physical Therapist ally Once a day for 30 days Active Clopidogrel Bisulfate Active Entresto Active Jardiance Active Ezetimibe Active Atorvastatin Calcium Active Encounters Encounter Location Date Provider Diagnosis [address] [address] 12/13/2024 Ruth Miller Plan Of Treatment Next Appt Details Provider Name:Yanna khan, 02/23/2025 10:00:00 AM, [address] [place] [address], [phone], Progress Notes * Jaime CHAPINDOB:1960 (65 yo M)Acc No.[id number]:12/13/2024 Progress Note Patient:?Jaime CHAPIN Provider:?Ruth Miller DPM :1960???Age:64 Y???Sex:Male Rodolfo e:12/13/2024 Address:[address] [place] [address] Pcp:YORDY Alcocer Subjective: * Chief Complaints: * ??? * Medical History:?High Blood Pressure, Transfusions. * Medications:?Taking Clopidog rel Bisulfate , Taking Entresto , Taking Jardiance , Taking Ezetimibe , Taking Atorvastatin Calcium , Taking amLODIPine Besylate , Taking Metoprolol Succinate , Taking Latanoprost , Taking Ciclopirox 0.77 % Gel 1 application Externally Once a day , Taking Terbinafine HCl 250 MG Tablet 1 tablet Orally Once a day * Allergies:?Heparin. Objective: * Vitals:? Assessment: Plan: * Treatment: * Images: * The named appointment provid er may or may not be the originator of this progress note, and it is not deemed complete until electronically signed by the appointment provider. Sign off status: Pending * Provider:?Ruth Miller DPM Date:?01/2025 Generated for Marichuy rangel/Ekaterina/Hoasmitting on:?02/15/2025 11:37 AM EDT
== END 2025-02-15 11:19 | disposition home or self-care (01) ==
PROVIDERS: PCP Nurse Practitioner Family; Visit Provider Internal Medicine Cardiovascular Disease
DX: I34.0 Nonrheumatic mitral (valve) insufficiency (principal); I20.89 Other forms of angina pectoris; I10 Essential (primary) hypertension
CPT/HCPCS: 99214

== ENCOUNTER → 2025-02-15 10:19 | Outpatient (BNVA) | payer MEDICARE, SELFPAY | PROVIDERS: PCP Nurse Practitioner Family; Visit Provider Internal Medicine Cardiovascular Disease | DX: I34.0 Nonrheumatic mitral (valve) insufficiency (principal); I20.89 Other forms of angina pectoris; I10 Essential (primary) hypertension | CPT/HCPCS: 99212 ==

== ENCOUNTER 2025-03-14 13:30 | Outpatient (REF) | payer MEDICARE, SELFPAY ==
[2025-03-14 17:40] LABS: Alanine Aminotransferase 62 U/L (0-40); Albumin Level 4.3 g/dL (3.5-5.0); Alkaline Phosphatase 55 U/L (39-117); Aspartate Amino Transferase 47 U/L (5-37); Bilirubin Direct 0.2 mg/dL (0.0-0.5); Bilirubin Total 0.5 mg/dL (0.0-1.0)
== END 2025-03-14 13:31 | disposition home or self-care (01) ==
LOC: HO.HMGCLDS 13:30
PROVIDERS: PCP Nurse Practitioner Family; Visit Provider Student in an Organized Health Care Education/Training Program
DX: B35.1 Tinea unguium (principal)
CPT/HCPCS: 36415; 80076

== ENCOUNTER 2025-08-21 10:25 | Outpatient (AMB) | payer MEDICARE, SELFPAY ==
[2025-08-21 10:41] VITALS: BP 124/60; PULSE 66; BMI 33.3
--- NOTE | 2025-08-21 10:41 | A.OFFVIS_ITS ---
Vital Signs 08/21/25 10:41 Height 5 ft 6 in Weight 206 lb 5.643 oz BMI 33.3 BP 124/60 Blood Pressure Location Lt brachial Position Sitting Pulse 66 Intake Visit Reasons: 6 mth f/up Camp Housekeeper Required: No Accompanied by: Self / Same As Patient Allergies Heparin Combination Allergy (Severe, Uncoded 12/07/24 10:45) Anaphylaxis Medication List - Last Reconciled 08/21/25 by Gio Benavides MD acetaminophen 1,000 mg (2 x 500 mg) PO TID PRN albuterol sulfate 90 mcg/actuation 1 inh inhalation QID PRN amlodipine 10 mg PO DAILY aspirin 81 mg PO DAILY atorvastatin 80 mg PO DAILY clopidogrel 75 mg PO DAILY empagliflozin 10 mg PO DAILY ezetimibe 10 mg PO DAILY hydrocodone-acetaminophen 5-325 mg 1 tab PO Q6H PRN latanoprost 0.005% 1 drp ophthalmic (eye) BEDTIME levofloxacin 500 mg PO DAILY 5 days metoprolol tartrate 25 mg PO BID sacubitril-valsartan 49-51 mg (Entresto) 1 tab PO BID sildenafil 25 mg PO DAILY PRN HPI Comments Details: 65-year-old gentleman who is here for 1st office visit. In 2016 he presented with dyspnea and palpitations to [facility] and based on his report he was transferred to [facility] for acute LA. he had primary PCI performed. He said he was given heparin and unfortunately had a reaction to heparin and developed blood clots which I think was JAMES. We do not have a lot of details of that and we will request records. He said his did CPR and eventually he was in the ICU for 38 days. He has a midline sternotomy scar and I do not know exact details currently. In any case he has recovered since then and has been doing well. He has no chest pains or shortness of breath. Blood pressure is mildly elevated. He is diabetic. He had echocardiography August 2022 which showed inferior inferolateral wall motion abnormality with mild mitral valve regurgitation. RV function was normal. 12/07/2023: He returns for follow-up. He had echocardiography which showed EF 45-50% with moderate mitral valve regurgitation. Posterior mitral valve leaflet appeared to be restricted which I think is related to previous circumflex infarct. I have reviewed his angiography as well as his hospital course at [facility]. He had massive pulmonary embolism for which she required thrombectomy surgically. Clinically, he has been stable. Denying any chest pain or shortness of breath. No congestive heart failure symptoms. 02/24/24: He is here for follow-up. He continues to be asymptomatic. Doing well and feeling better since been on Entresto and Jardiance. He is saying that he is breathing easier and feeling a difference although he did not complain to me previously about any shortness of breath. No signs of heart failure. 06/27/2024: He is here for follow-up. Continues to be active and has no exertional symptoms. No chest discomfort. No symptoms signs of heart failure. Blood pressure is well controlled. EKGs reviewed. Echo was in 10/31/2023 when EF was 45-50% with moderate mitral valve regurgitation. There was akinesis of inferolateral wall, basal inferior and mid inferior wall. Taking medications regularly. 10/31/2024: On follow-up today, he has been doing well. No chest discomfort shortness of breath. No orthopnea or PND. Blood pressure is well controlled. Echocardiography has shown EF 50-55% with trace mitral valve regurgitation. There is significant improvement in the mitral valve regurgitation. He unfortunately had some insurance issues and he is running out of his Entresto and Jardiance in few days. We have provided him with some coupons to see if he can get coverage while he is insurance kicks in. Otherwise he will call us and I will transition him to ARB from Entresto. 02/15/2025: he is here for follow-up. He is back with his insurance and is taking medications regularly. He is on Jardiance and Entresto at this point. Again denying any symptoms currently. 08/21/2025: He is here for follow-up. He continues to be active and has no e xertional symptoms. No chest discomfort shortness of breath. No orthopnea or PND. Taking medications regularly. [facility] Medical History (Updated 08/21/25 @ 11:08 by Gio Benavides MD) Proteinuria Fatty liver Cardiogenic shock Myocardial infarct CKD (chronic kidney disease) Hyperparathyroidism Heparin induced thrombocytopenia CRI (chronic renal insufficiency) Pulmonary embolism Coronary artery disease Renal insufficiency Hyperlipidemia Hypertension Surgical History Stented coronary artery History of open heart surgery Family History Father Unknown family medical history Mother HTN (hypertension) Other Substance use disorder Social History Housing: Other Patient Tobacco Use Status: Never used Tobacco e-Cigarette/Vaping Use: Never Used Second Hand Smoke Exposure: Yes Current occupational status: retired Cognitive needs: No Hearing needs: No Vision needs: No Review of Systems Const Denies daytime sleepiness, Denies difficulty sleeping, Denies snoring, Denies stops breathing during sleep and Denies weakness Card Denies chest pain, Denies rapid heart rate, Denies irregular heart rhythm, Denies claudication, Denies leg edema, Denies lightheadedness, Denies palpitations, Denies dyspnea, Denies dyspnea on exertion, Denies orthopnea, Denies paroxysmal nocturnal dyspnea and Denies slow heart rate Resp Denies cough, Denies dyspnea, Denies dyspnea on exertion and Denies snoring GI Reports no additional complaints, Denies hematochezia, Denies change in stool character and Denies dyspepsia Musc Denies abnormal gait, Denies muscle weakness and Denies numbness Neuro Denies abnormal gait, Denies numbness and Denies weakness Endo Denies palpitations Physical Exam Vital Signs: Last Vital Signs Pulse 66 08/21/25 10:41 BP 124/60 08/21/25 10:41 BMI result Body Mass Index 33.3 GENERAL APPEARANCE: in no acute distress, pleasant. NECK: no carotid bruit, no jugular venous distention. SKIN: no suspicious lesions, warm and dry. HEART: Regular rate and rhythm. Grade 2/6 apical holosystolic murmur. LUNGS: clear to auscultation bilaterally. ABDOMEN: soft, nontender. EXTREMITIES: no edema. PERIPHERAL PULSES: equal. NEUROLOGIC: No gross deficits, AAO X 3 Assessment & Plan Assessment & Plan (1) Hypertension: Code(s): I10 - Essential (primary) hypertension Category: Medical (2) Mitral regurgitation: Code(s): I34.0 - Nonrheumatic mitral (valve) insufficiency Category: Medical (3) Coronary artery disease: Code(s): I25.10 - Atherosclerotic heart disease of three affiliated coronary artery without angina pectoris Category: Medical (4) Stable angina: Code(s): I20.89 - Other forms of angina pectoris Category: Medical Plan 65-year-old gentleman presenting for follow-up. He has known history of previous acute coronary syndrome with left circumflex artery PCI with mild LV dysfunction. He had moderate mitral valve regurgitation by echocardiography in October 2023. Repeat echocardiography in 09/30/2024 while on medical therapy showed EF of 50- 55% with trace mitral valve regurgitation. There was significant improvement in the mitral valve regurgitation. He has no symptoms clinically. We discussed about symptoms of progressive mitral valve regurgitation and if he developed any symptoms he will reach out to us. Continue same medications for now. Clinically stable. He will see us back in 6 months. Thank you for allowing me to participate in the care of your patient. Please feel free to contact me if you have any questions. Coding Level of Care Code Est Pt Level 4 (23550) Diagnoses Hypertension I10 Mitral regurgitation I34.0 Coronary artery disease I25.10 Stable angina I20.89
--- OUTSIDE RECORDS SUMMARY | 2025-08-21 12:12 | XMS_ITS | Encounter Summary ---
Author Organization [facility] Address [address] [place] [address] Phone Care Team Providers Care Enterprise Application Analyst Name Role Phone Rodger Yeung NP Primary Care Provider [phone] Encounter Details Date Type Department Care Team ([facility] Contact Info) Description 09/09/2023 Documentation Only [facility] [address] [place] [address] Todd Calderon MD [address] [place] [address] [place] [phone] Social History Tobacco Use Types Packs/Day Years Used Date Smoking Tobacco: Never Sex and Gender Information Value Date Recorded Sex Assigned at Not on file Legal Sex Male 8:00 AM EST Gender Identity Not on file Sexual Orientation Not on file documented as of this encounter Plan of Treatment Upcoming Encounters Date Type Department Care Team ([facility] Contact Info) Description 09/18/2025 1:45 PM EST Office Visit [facility] [address] [place] [address] Todd Calderon MD [address] [facility] [place] [address] documented as of this encounter Visit Diagnoses Not on filedocumented in this encounter Care Teams Enterprise Application Analyst Relationship Specialty Start Date End Date Rodger Yeung NP [address] [place] [address] PCP - General Nurse Practitioner 12/03/20 documented as of this encounter
--- OUTSIDE RECORDS SUMMARY | 2025-08-21 12:12 | XMS_ITS | Encounter Summary ---
Author Organization [facility] Address [address] [place] [address] Phone Care Team Providers Care Long Term Care Administrator Name Role Phone Rodger Yeung NP Primary Care Provider [phone] Encounter Details Date Type Department Care Team ([facility] Contact Info) Description 11/03/2021 Documentation Only [facility] [address] [place] [phone] Todd Calderon MD [address] [place] [address] [place] [phone] Social History Tobacco Use Types Packs/Day Years Used Date Smoking Tobacco: Never Sex and Gender Information Value Date Recorded Sex Assigned at Not on file Legal Sex Male 8:00 AM EST Gender Identity Not on file Sexual Orientation Not on file documented as of this encounter Plan of Treatment Upcoming Encounters Date Type Department Care Team ([facility] Contact Info) Description 09/18/2025 1:45 PM EST Office Visit [facility] [address] [place] [address] Todd Calderon MD [address] [facility] [place] [address] documented as of this encounter Visit Diagnoses Not on filedocumented in this encounter Care Teams Long Term Care Administrator Relationship Specialty Start Date End Date Rodger Yeung NP [address] [place] [address] PCP - General Nurse Practitioner 12/03/20 documented as of this encounter
--- OUTSIDE RECORDS SUMMARY | 2025-08-21 12:12 | XMS_ITS | Clinical Summary ---
Author Organization [facility] [place], Address [address] [place] [address] [place] [address] Phone Care Team Providers Care Rn Testing Name Role Phone Rodger Yeung NP Primary Care Provider Allergies Active Allergy Reactions Criticality Noted Date [...] Visit [facility] [place], [address] [facility] [place] [address] Todd Calderon MD [address] [facility] [place] [phone] Health Maintenance Due Date Last Done Comments Pneumococcal Vaccine: 50+ Ye ars (1 of 2 - PCV) 1977 Colorectal Cancer Screening: Annual FOBT 2007 Colorectal Cancer Screening: Colonoscopy 2007 Colorectal Cancer Screening: Sigmoidoscopy 2007 Influenza Vaccine (#1) 2025 Hepatitis B Vaccine Aged Out No longe r eligible based on patient's age to complete this topic Insurance Aetna MCR Adv PPO ([id number]) Care Teams Rn Testing Relationship Specialty Start Date End Date Rodger Yeung NP [address] [place] [address] PCP - General Nurse Practitioner 12/03/20
--- OUTSIDE RECORDS SUMMARY | 2025-08-21 12:12 | XMS_ITS | Encounter Summary ---
Author Organization [facility] Address [address] [place] [address] Phone Care Team Providers Care Supervisor Public Message Service Name Role Phone Rodger Yeung NP Primary Care Provider [phone] Encounter Details Date Type Department Care Team (Late Contact Info) Description 09/16/2024 Documentation Only [facility] [address] [place] [address] [place], [place] [address] [place] [phone] Social History Tobacco Use Types Packs/Day Years [...] Visit [facility] [address] [place] [address] Todd Calderon MD [address] [place] [address] [place] [address] documented as of this encounter Visit Diagnoses Not on filedocumented in this encounter Care Teams Supervisor Public Message Service Relationship Specialty Start Date End Date Rodger Yeung NP [address] [place], [place] [phone] PCP - General Nurse Practitioner 12/03/20 documented as of this encounter
--- OUTSIDE RECORDS SUMMARY | 2025-08-21 12:12 | XMS_ITS | Encounter Summary ---
Author Organization [facility] Address [address] [place] [address] Phone Care Team Providers Care Tube Blower Name Role Phone Rodger Yeung NP Primary Care Provider [phone] Encounter Details Date Type Department Care Team ([facility] Contact Info) Description 07/21/2022 Documentation Only [facility] [address] [place] [address] Todd Calderon MD [address] [place] [address] [place] [address] Social History Tobacco Use Types Packs/Day Years Used Date Smoking Tobacco: Never Sex and Gender Information Value Date Recorded Sex Assigned at Not on file Legal Sex Male 8:00 AM EST Gender Identity Not on file Sexual Orientation Not on file documented as of this encounter Plan of Treatment Upcoming Encounters Date Type Department Care Team ([facility] Contact Info) Description 09/18/2025 1:45 PM EST Office Visit [facility] [address] [place] [address] Todd Calderon MD [address] [facility] [place] [address] documented as of this encounter Visit Diagnoses Not on filedocumented in this encounter Care Teams Tube Blower Relationship Specialty Start Date End Date Rodger Yeung NP [address] [place] [address] PCP - General Nurse Practitioner 12/03/20 documented as of this encounter
--- OUTSIDE RECORDS SUMMARY | 2025-08-21 12:12 | XMS_ITS | Encounter Summary ---
Author Organization [facility] Address [address] [place] [address] Phone Care Team Providers Care Media Production Operator Name Role Phone Rodger Yeung NP Primary Care Provider [phone] Encounter Details Date Type Department Care Team (Late Contact Info) Description 12/05/2022 Documentation Only [facility] [address] [place] [phone] Todd Calderon MD [address] [place] [address] [place] [phone] Social History Tobacco Use Types Packs/Day Years Used Date Smoking Tobacco: Never Sex and Gender Information Value Date Recorded Sex Assigned at Not on file Legal Sex Male 8:00 AM EST Gender Identity Not on file Sexual Orientation Not on file documented as of this encounter Plan of Treatment Upcoming Encounters Date Type Department Care Team ([facility] Contact Info) Description 09/18/2025 1:45 PM EST Office Visit [facility] [address] [place] [address] Todd Calderon MD [address] [facility] [place] [address] documented as of this encounter Visit Diagnoses Not on filedocumented in this encounter Care Teams Media Production Operator Relationship Specialty Start Date End Date Rodger Yeung NP [address] [place] [address] PCP - General Nurse Practitioner 12/03/20 documented as of this encounter
--- OUTSIDE RECORDS SUMMARY | 2025-08-21 12:12 | XMS_ITS | Encounter Summary ---
Author Organization [facility] Address [address] [place] [address] Phone Care Team Providers Care Structural Welder Name Role Phone Rodger Yeung NP Primary Care Provider [phone] Encounter Details Date Type Department Care Team (Late Contact Info) Description 09/16/2024 Documentation Only [facility] [address] [place] [address] Zahraa AsencioRIO [place], [place] [address] [place] [phone] Social History Tobacco Use Types Packs/Day Years [...] Visit [facility] [address] [place] [address] Todd Calderon MD [address] [place] [address] [place] [address] documented as of this encounter Visit Diagnoses Not on filedocumented in this encounter Care Teams Structural Welder Relationship Specialty Start Date End Date Rodger Yeung NP [address] [place], [place] [phone] PCP - General Nurse Practitioner 12/03/20 documented as of this encounter
== END 2025-08-21 11:15 | disposition home or self-care (01) ==
PROVIDERS: PCP Nurse Practitioner Family; Visit Provider Internal Medicine Cardiovascular Disease
DX: I10 Essential (primary) hypertension (principal); I34.0 Nonrheumatic mitral (valve) insufficiency; I25.10 Atherosclerotic heart disease of native coronary artery without angina pectoris; I20.89 Other forms of angina pectoris
CPT/HCPCS: 99214

== ENCOUNTER → 2025-08-21 10:25 | Outpatient (BNVA) | payer MEDICARE, SELFPAY | PROVIDERS: PCP Nurse Practitioner Family; Visit Provider Internal Medicine Cardiovascular Disease | DX: I10 Essential (primary) hypertension (principal); I34.0 Nonrheumatic mitral (valve) insufficiency; I25.10 Atherosclerotic heart disease of native coronary artery without angina pectoris | CPT/HCPCS: 99212 ==

== ENCOUNTER 2025-09-11 08:51 | Outpatient (REF) | payer MEDICARE, SELFPAY ==
[2025-09-11 10:12] LABS: Appearance Urine Clear; Glucose Urine UA >=1000 mg/dL (Negative); PH 5.0 (5.0-9.0); Specific Gravity - Urine 1.025 (1.005-1.025); UMIC TRIGGER UACC YES
[2025-09-11 10:36] LABS: MANUAL DIFF FLAG NO
[2025-09-11 11:10] LABS: Hematocrit 49.8 % (42.0-52.0); Hemoglobin 15.8 g/dl (14.0-18.0); Imm Gran Abs Auto 0.03 X10*3/uL (0.00-0.03); Imm Gran Pct Auto 0.5 % (0.0-0.4); Lymphocytes Absolute Auto 1.4 X10*3/uL (1.2-4.9); Mean Corpuscular HGB Conc 31.7 g/dl (31.0-36.0); Mean Corpuscular Hemoglobin 27.9 pg (27.0-33.0); Mean Corpuscular Volume 87.8 fL (80.0-98.0); NRBC Abs Auto 0.000 X10*3/uL (0.0-0.012); NRBC Pct Auto 0.0 /100WBC (0.0-0.2); Platelet Count 190 X10*3/uL (160-400); Red Blood Count 5.67 X10*6/uL (4.60-5.80); White Blood Count 6.3 X10*3/uL (4.8-10.8)
[2025-09-11 11:45] LABS: Alanine Aminotransferase 61 U/L (0-40); Albumin Level 4.3 g/dL (3.5-5.0); Alkaline Phosphatase 57 U/L (39-117); Anion Gap 10 (12-20); Aspartate Amino Transferase 39 U/L (5-37); Blood Urea Nitrogen 16 mg/dL (9-16); Calcium 9.0 mg/dL (8.4-10.2); Carbon Dioxide 23 mmol/L (22-29); Chloride 113 mmol/L (96-108); Cholesterol 106 mg/dL (<200); Estimated Glomerular Filt Rate 59; HDL Cholesterol 41 mg/dL (>40); Potassium 4.0 mmol/L (3.3-5.1); Sodium 142 mmol/L (135-145); Total Protein 7.1 g/dL (6.5-8.0); Triglycerides 52 mg/dL (<150)
== END 2025-09-11 08:52 | disposition home or self-care (01) ==
LOC: HO.HMGCLDS 08:51
PROVIDERS: PCP Nurse Practitioner Family; Visit Provider Nurse Practitioner Family
DX: Z12.5 Encounter for screening for malignant neoplasm of prostate (principal); E55.9 Vitamin D deficiency, unspecified; I10 Essential (primary) hypertension
CPT/HCPCS: 36415; 80053; 80061; 81001; 82306; 84153; 84443; 85025

== ENCOUNTER 2025-09-13 07:50 | Outpatient (AMB) | payer MEDICARE, SELFPAY ==
--- OUTSIDE RECORDS SUMMARY | 2025-09-13 07:57 | XMS_ITS | Clinical Summary ---
Author Organization [facility] Address [address] [facility] [place] [address] Phone Care Team Providers Care Environmental Program Manager Name Role Phone Rodger Yeung NP Primary Care Provider [phone] Allergies Active Allergy Reactions Criticality Noted Date [...] Encounters Date Type Department Care Team Description 09/04/2025 Orders Only [facility] [address] [place] [phone] Zahraa Asencio [place] Chronic kidney disease, stage 2 (mild) (Primary [...] Office Visit [facility], [address] [place] [phone] Todd Calderon MD [address] [place] [address] [place] [phone] Health Maintenance Due Date Last Done Comments Pneumococcal Vaccine: 50+ Ye ars (1 of 2 - PCV) 1977 Colorectal Cancer Screening: Annual FOBT 2007 Colorectal Cancer Screening: Colonoscopy 2007 Colorectal Cancer Screening: Sigmoidoscopy 2007 Influenza Vaccine (#1) 2025 Hepatitis B Vaccine Aged Out No longe r eligible based on patient's age to complete this topic Insurance A[employer]na MCR Adv PPO ([id number]) Care Teams Environmental Program Manager Relationship Specialty Start Date End Date Rodger Yeung NP [address] [place] [address] PCP - General Nurse Practitioner 12/03/20
--- OUTSIDE RECORDS SUMMARY | 2025-09-13 07:57 | XMS_ITS | Patient Health Record ---
[facility] Address [address] [facility] [place] [address] Care Team Providers Care Hvac Service Tech Name Role Phone Rodger Fox Primary Care Provider Yanna Padron Unavailable [phone] AngelaRuth Unavailable [phone] Allergies Allergen (clinical drug ingredient) Drug/Non Drug Allergy documented on EMR Reaction Allergy Type Onset Date Status heparin Heparin Unknown Drug Allergy Active Reason For Referral No Information Medications Medication SIG (Take, Route, Fr equency, Duration) Notes Start Date End Date Status Entresto Active Clopidogrel Bisulfate Active Terbinafine HCl 250 MG 1 tablet Orally O nce a day; Duration: 30 days 03/15/2025 Active Terbinafine HCl 250 MG 1 tablet Orally O nce a day; Duration: 30 days 02/23/2025 Active Terbinafine HCl 250 MG 1 tablet Orally O nce a day; Duration: 30 days 09/29/2024 Active Ciclopirox 0.77 % 1 application Turret Punch Press Operator ally Once a day; Duration: 30 days Active Latanoprost Active Metoprolol Succinate Active amLODIPine Besylate Active Atorvastatin Calcium Active Ezetimibe Active Jardiance Active Ketoconazole 2 % 1 application Apply a thin layer to externally to feet, even between toes Twice a day; Duration: 30 days Active Immunizations Vaccine Route Administration Date Status Comme nts Influenza Unknown 07/12/2024 Administered Social History Tobacco Use: Social History Observation Description Date Details (start date - stop date) Never Smoker NA - NA Tobacco use other than smoking: Question Answer Notes Are you an other tobacco user? No Tobacco Control (Standard) Question Answer Notes Tobacco use: Nonsmoker Additional Findings: Tobacco non-user Current no nsmoker AUDIT-C (Standard) Question Answer Notes Did you have a drink containing alcohol in the p ast year? No Points 0 Interpretation Negative Vital Signs Blood pressure diastolic 65 mm Hg 04/27/2025 Height 5ft6in in 04/27/2025 Blood pressure systolic 128 mm Hg 04/27/2025 Weight 217 lbs 04/27/2025 BMI 35.02 kg/m2 04/27/2025 Encounters Encounter Location Date Provider Diagnosis [address] [address] 09/26/2024 Yanna Canas Pain in right toe(s) M79.674 ; Onychomycosis B35.1 and Pain in left toe(s) M79.[address] [address] 02/23/2025 Yanna Canas Pain in right toe(s) M79.674 ; Onychomycosis B35.1 and Pain in left toe(s) M79.[address] [address] 04/27/2025 Yanna Canas Tinea pedis of both feet B35.3 ; Pain in right toe(s) M79.674 ; Onychomycosis B35.1 and Pain in left toe(s) M79.[address] [address] 09/29/2024 Yanna Canas [address] [address] 12/13/2024 Yanna Canas [address] [address] 03/15/2025 Yanna Canas Assessments Encounter Date Diagnosis (ICD Code) Assessment Notes Treatment Notes Treatment Clinical Notes Section Notes 09/26/2024 Pain in right toe(s) (ICD-10 - M79.674) 09/26/2024 Onychomycosis (ICD-10 - B35.1) Patient Educated with: FUNGUS NAIL INFECTIONS.pdf (FUNGUS NAIL INFECTIONS.pdf ) 02/23/2025 Pain in right toe(s) (ICD-10 - M79.674) 02/23/2025 Onychomycosis (ICD-10 - B35.1) Patient Educated with: FUNGUS NAIL INFECTIONS.pdf (FUNGUS NAIL INFECTIONS.pdf ) 04/27/2025 Tinea pedis of both feet (ICD-10 - B35.3) Patient Educated with: ATHELETE .pdf (ATHELETE .pdf) 04/27/2025 Pain in right toe(s) (ICD-10 - M79.674) 02/23/2025 Pain in left toe(s) (ICD-10 - M79.675) 09/26/2024 Pain in left toe(s) (ICD-10 - M79.675) 04/27/2025 Onychomycosis (ICD-10 - B35.1) 04/27/2025 Pain in left toe(s) (ICD-10 - M79.675) Plan Of Treatment Pending Test Test Name Order Date *Liver Function Test (LFT) 08/15/2024 *Liver Function Test (LFT) 09/26/2024 *Liver Function Test (LFT) 02/23/2025 Insurance Providers Payer Name Payer Address Payer Phone Subscriber Number Group Number Insured Name Patient Relationship to Insured Coverage Start Date Coverage End Date A[employer] [address] [place] [phone] [id number] Jaime Chapin Self - patient is the insured Medical (General) History Medical History History ICD Code High Blood Pressure Transfusions Surgical History Surgery Date(Month/Year) heart surgery unspecified 2015
--- OUTSIDE RECORDS SUMMARY | 2025-09-13 07:57 | XMS_ITS | Encounter Summary ---
Author Organization [facility] Address [address] [place] [address] Phone Care Team Providers Care Pipe Organ Technician Name Role Phone Rodger Yeung NP Primary Care Provider [phone] Encounter Details Date Type Department Care Team ([facility] Contact Info) Description 09/09/2023 Documentation Only [facility] [address] [place] [address] Todd Calderon MD [address] [place] [address] [place] [phone] Social History Tobacco Use Types Packs/Day Years Used Date Smoking Tobacco: Never Sex and Gender Information Value Date Recorded Sex Assigned at Not on file Legal Sex Male 8:00 AM EST Gender Identity Not on file Sexual Orientation Not on file documented as of this encounter Functional Status documented as of this encounter Plan of Treatment Upcoming Encounters Date Type Department Care Team ([facility] Contact Info) Description 09/18/2025 1:45 PM EST Office Visit [facility] [address] [place] [address] Todd Calderon MD [address] [place] [address] [place] [address] documented as of this encounter Visit Diagnoses Not on filedocumented in this encounter Care Teams Pipe Organ Technician Relationship Specialty Start Date End Date Rodger Yeung NP [address] [place] [address] PCP - General Nurse Practitioner 12/03/20 documented as of this encounter
--- OUTSIDE RECORDS SUMMARY | 2025-09-13 07:57 | XMS_ITS | Encounter Summary ---
Author Organization [facility] Address [address] [place] [address] Phone Care Team Providers Care Rehab Technician Name Role Phone Rodger Yeung NP Primary Care Provider [phone] Encounter Details Date Type Department Care Team (Late Contact Info) Description 12/05/2022 Documentation Only [facility] [address] [place] [phone] Todd Calderon MD [address] [place] [address] [place] [address] Social History Tobacco Use Types Packs/Day Years Used Date Smoking Tobacco: Never Sex and Gender Information Value Date Recorded Sex Assigned at Not on file Legal Sex Male 8:00 AM EST Gender Identity Not on file Sexual Orientation Not on file documented as of this encounter Plan of Treatment Upcoming Encounters Date Type Department Care Team ([facility] Contact Info) Description 09/18/2025 1:45 PM EST Office Visit [facility] [address] [place] [address] Todd Calderon MD [address] [facility] [place] [address] documented as of this encounter Visit Diagnoses Not on filedocumented in this encounter Care Teams Rehab Technician Relationship Specialty Start Date End Date Rodger Yeung NP [address] [place] [address] PCP - General Nurse Practitioner 12/03/20 documented as of this encounter
--- OUTSIDE RECORDS SUMMARY | 2025-09-13 07:57 | XMS_ITS | Encounter Summary ---
Author Organization [facility] Address [address] [place] [address] Phone Care Team Providers Care Fluid Jet Cutter Operator Name Role Phone Rodger Yeung NP Primary Care Provider [phone] Encounter Details Date Type Department Care Team (Late Contact Info) Description 09/16/2024 Documentation Only [facility] [address] [place] [address] Zahraa AsencioSINT[place], [place] [address] [place] [phone] Social History Tobacco Use Types Packs/Day Years [...] Visit [facility] [address] [place] [address] Todd Calderon MD [address] [place] [address] [place] [address] documented as of this encounter Visit Diagnoses Not on filedocumented in this encounter Care Teams Fluid Jet Cutter Operator Relationship Specialty Start Date End Date Rodger Yeung NP [address] [place], [place] [phone] PCP - General Nurse Practitioner 12/03/20 documented as of this encounter
--- OUTSIDE RECORDS SUMMARY | 2025-09-13 07:57 | XMS_ITS | Encounter Summary ---
Author Organization [facility] Address [address] [place] [address] Phone Care Team Providers Care Lead Ios Developer Name Role Phone Rodger Yeung NP Primary Care Provider [phone] Encounter Details Date Type Department Care Team ([facility] Contact Info) Description 11/03/2021 Documentation Only [facility] [address] [place] [address] Todd Calderon MD [address] [place] [address] [place] [phone] Social History Tobacco Use Types Packs/Day Years [...] Encounters Date Type Department Care Team ([facility] Contact Info) Description 09/18/2025 1:45 PM EST Office Visit [facility] [address] [place] [address] Todd Calderon MD [address] [place] [address] [place] [address] documented as of this encounter Visit Diagnoses Not on filedocumented in this encounter Care Teams Lead Ios Developer Relationship Specialty Start Date End Date Rodger Yeung NP [address] [place] [address] PCP - General Nurse Practitioner 12/03/20 documented as of this encounter
--- OUTSIDE RECORDS SUMMARY | 2025-09-13 07:57 | XMS_ITS | Encounter Summary ---
Author Organization [facility] Address [address] [place] [address] Phone Care Team Providers Care Manager Contract Name Role Phone Rodger Yeung NP Primary Care Provider [phone] Encounter Details Date Type Department Care Team (Late Contact Info) Description 09/16/2024 Documentation Only [facility] [address] [place] [address] Z[place]raa [place], [place] [address] [place] [address] Social History Tobacco Use Types Packs/Day Years [...] Visit [facility] [address] [place] [address] Todd Calderon MD [address] [place] [address] [place] [address] documented as of this encounter Visit Diagnoses Not on filedocumented in this encounter Care Teams Manager Contract Relationship Specialty Start Date End Date Rodger Yeung NP [address] [place], [place] [phone] PCP - General Nurse Practitioner 12/03/20 documented as of this encounter
--- OUTSIDE RECORDS SUMMARY | 2025-09-13 07:57 | XMS_ITS | Encounter Summary ---
Author Organization [facility] Address [address] [place] [address] Phone Care Team Providers Care Duct Layer Name Role Phone Rodger Yeung NP Primary Care Provider [phone] Encounter Details Date Type Department Care Team ([facility] Contact Info) Description 07/21/2022 Documentation Only [facility] [address] [place] [address] Todd Calderon MD [address] [place] [address] [place] [phone] Social History Tobacco Use Types Packs/Day Years Used Date Smoking Tobacco: Never Sex and Gender Information Value Date Recorded Sex Assigned at Not on file Legal Sex Male 8:00 AM EST Gender Identity Not on file Sexual Orientation Not on file documented as of this encounter Plan of Treatment Upcoming Encounters Date Type Department Care Team ([facility] Contact Info) Description 09/18/2025 1:45 PM EST Office Visit [facility] [address] [place] [address] Todd Calderon MD [address] [facility] [place] [address] documented as of this encounter Visit Diagnoses Not on filedocumented in this encounter Care Teams Duct Layer Relationship Specialty Start Date End Date Rodger Yeung NP [address] [place] [address] PCP - General Nurse Practitioner 12/03/20 documented as of this encounter
[2025-09-13 08:04] VITALS: BP 124/80; PULSE 61; RESP 16; TEMP 36.8; O2SAT 95; BMI 33.1
--- NOTE | 2025-09-13 08:04 | A.OFFPC_ITS ---
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 Allergies Heparin Combination Allergy (Severe, Uncoded 09/13/25 08:09) Anaphylaxis Medication List - Last Reconciled 09/13/25 by NEVAEH Reyes- acetaminophen 1,000 mg (2 x 500 mg) PO TID PRN albuterol sulfate 90 mcg/actuation 1 inh inhalation QID PRN amlodipine 10 mg PO DAILY aspirin 81 mg PO DAILY atorvastatin 80 mg PO DAILY cholecalciferol (vitamin D3) 50 mcg PO DAILY clopidogrel 75 mg PO DAILY empagliflozin 10 mg PO DAILY ezetimibe 10 mg PO DAILY latanoprost 0.005% 1 drp ophthalmic (eye) BEDTIME metoprolol tartrate 25 mg PO BID sacubitril-valsartan 49-51 mg (Entresto) 1 tab PO BID sildenafil 25 mg PO DAILY PRN Tobacco use date assessed: 09/13/25 Fall risk assessment: No Falls in past year Dental Screening Dental Screen Date: 09/13/25 Did you have a dental visit in the last 12 months?: Yes Did you have a dental problem in the last 6 months where you did not have access to dental care?: No Was dental information given to patient?: Patient has dentist HPI PE HPI Details History of Present Illness The patient is a 65 year old individual presenting for a physical examination and management of chronic conditions. The patient is followed by a data integration architect on a regular basis, with the last visit occurring less than six months ago, though the report is not available. The patient also sees a oracle developer for management of mitral regurgitation. The patient has a history of elevated liver enzymes and fatty liver, with the last abdominal ultrasound performed in 2020. Preventative screenings, including colon cancer screening and PSA, are up to date. The patient has declined all vaccinations. Health Maintenance Colon cancer and PSA screenings are up to date. The patient's refusal of all vaccinations has been noted. Social History Review of Systems - Cardiovascular: Denies chest pain or s hortness of breath. - Gastrointestinal: Denies pain, hematoc hezia, constipation, or diarrhea. - Psychiatric: Denies suicidal ideation or homicidal ideation. Physical Exam General: Cooperative, healthy appearing, comfortable, no acute distress and well developed, obesity Orientation: Patient oriented x3 Limitations: No limitations Head: Normal to inspection Ears: Hearing grossly normal bilaterally Nose: Normal external nose present Face and sinus: Normal facial exam Eyes: Appearance normal, both eyes and all related structures Neck: Normal visual inspection and Yes full ROM Respiratory: Normal respiratory effort and able to speak in complete sentences. Clear to auscultation bilaterally Cardiovascular: Regular rate and rhythm. Normal S1 and S2. Systolic murmur noted GI: Normal to inspection. Soft to palpation and nontender. : Testicles without masses/lesions and no hernias appreciated Skin: No rashes or lesions noted Neuro: Patient oriented x3 Extremities: Normal to inspection. Obesity noted Results - Labs: Known history of elevated liver enzymes. - Imaging: The last ultrasound of the ab hair was in 2020. Plan 1. Erectile Dysfunction A prescription for tadalafil will be sent for erectile dysfunction. 2. Fatty Liver The patient has a known history of fatty liver and elevated liver enzymes. As the last abdominal ultrasound was in 2020, a repeat ultrasound will be ordered. 3. Mitral Regurgitation The patient is followed by cardiology for this condition and denies any chest pain or shortness of breath. The plan is for the patient to continue follow-up with the retina subspecialist. 4. Physical exam with abnormal findings 5. elevated fbs, went over proper diet, portion sizes Discussion Notes I informed the patient that I will be prescribing tadalafil for erectile dysfunction. We discussed the patient's history of elevated liver enzymes and fatty liver, and I have placed an order for a repeat abdominal ultrasound as the last one was from 2020. We acknowledged that the patient sees a data integration architect and oracle developer regularly and that colon and PSA screenings are up to date. I also noted the patient's decision to decline all vaccinations. Patient Instructions - We are sending a prescription for tada lafil for erectile dysfunction to your pharmacy. - We have ordered a new ultrasound of yo ur abdomen to check on your fatty liver. Please get this done as your last one was in 2020. - Continue your regular follow-up appoin tments with your kidney specialist (data integration architect) and hazardous waste management specialist (oracle developer). - Your screenings for colon cancer and p rostate cancer are up to date, and no further action is needed at this time. [facility] Medical History Proteinuria Fatty liver Cardiogenic shock Myocardial infarct CKD (chronic kidney disease) Hyperparathyroidism Heparin induced thrombocytopenia CRI (chronic renal insufficiency) Pulmonary embolism Coronary artery disease Renal insufficiency Hyperlipidemia Hypertension Surgical History Stented coronary artery History of open heart surgery Family History Father Unknown family medical history Mother HTN (hypertension) Other Substance use disorder Social History Housing: Other Patient Tobacco Use Status: Never used Tobacco e-Cigarette/Vaping Use: Never Used Second Hand Smoke Exposure: Yes Current occupational status: retired Cognitive needs: No Hearing needs: No Vision needs: No Questionnaire PHQ-9 Over the last 2 weeks, how often have you been bothered by any of the following problems? 1. Little interest or pleasure in doing things: not at all 2. Feeling down, depressed, or hopeless: not at all 3. Trouble falling or staying asleep, or sleeping too much: not at all 4. Feeling tired or having little energy: not at all 5. Poor appetite or overeating: not at all 6. Feeling bad about yourself - or that you are a failure or have let yourself or your family down: not at all 7. Trouble concentrating on things, such as reading the newspaper or watching television: not at all 8. Moving or speaking so slowly that other people could have noticed. Or the opposite - being so fidgety or restless that you have been moving around a lot more than usual: not at all 9. Thoughts that you would be better off or of hurting yourself in some way: not at all Total score: 0 Depression Screening Interpretation: Negative Depression Screening Done: Yes 07012 - PHQ-9 Billing: Yes Source: Developed by Drs. Choco Vizcaino, Zeny Alford, Kimo Camara and colleagues, with an educational edi from [employer]. Thrive Questionnaire Date Thrive assessed: 09/13/25 I am a: Patient What is your living situation today?: I have a steady place to live Within the past 12 months, did the food you bought not last and you didn't have the money to get more?: Never true Within the past 12 months, did you worry whether your food would run out before you got money to buy more?: Never true Do you have trouble paying for medicines?: No Do you have trouble getting transportation to medical appointments?: No Do you have trouble paying your heating and electricity bill?: No Do you have trouble taking care of your child, family member or friend?: No Do you have trouble with day-to-day activities such as bathing, preparing meals, shopping, managing finances, etc.?: No Are you currently unemployed and looking for a job?: No Are you interested in more education?: No Please select the resources that you would like help with: None Currently or been in a relationship where the following occur: No concerns reported THRIVE Score: 0 AUDIT C Alcohol Use Questionnaire (AUDIT-C) 1. How often do you have a drink containing alcohol?: Never Total Score: 0 Score Reviewed/Action Taken: Yes SUKHI-7 AMB Questionnaire SUKHI-7 Date SUKHI - 7 assessed: 09/13/25 Feeling nervous, anxious, or on edge: 0 = Not at all Not being able to stop or control worryin = Not at all Worrying too much about different things: 0 = Not at all Trouble relaxin = Not at all Being so restless that it is hard to sit still: 0 = Not at all Becoming easily annoyed or irritable: 0 = Not at all Feeling afraid as if something awful might happen: 0 = Not at all Total SUKHI-7 score (0-4 normal; 5-9 mild; 10-14 moderate; 15-21 severe): 0 Source: Developed by Drs. Choco Vizcaino, Zeny Alford, Kimo Camara and colleagues, with an educational edi from [employer]. SUKHI-7 Assessment Billing SUKHI-7 Assessment Tool: SUKHI-7 Assessment 02381 Physical exam (Primary Care) Vital Signs: Last Vital Signs Temp 98.2 F 09/13/25 08:04 Pulse 61 12/03/25 08:04 Resp 16 09/13/25 08:04 BP 124/80 09/13/25 08:04 Pulse Ox 95 09/13/25 08:04 Oxygen Delivery Method Room Air 09/13/25 08:04 BMI result Body Mass Index 33.1 Tobacco/Smoking Status: Tobacco use Status Tobacco use date assessed 09/13/25 09/13/25 08:11 Patient Tobacco Use Status Never used Tobacco 09/13/25 08:11 e-Cigarette/Vaping Use Never Used 09/13/25 08:11 PHQ-9: PHQ-9 Score PHQ-9: Total score 0 09/13/25 08:11 Depression Screening Interpretation: Negative Thrive Assessment: Date of Thrive Assessment Date Thrive assessed 09/13/25 09/13/25 08:11 Currently or been in a relationship where the following occur: No concerns re ported Coding Level of Care Code Est Pt Level 3 (78140) Est Pt Prev Care >65y(18127) Diagnoses Elevated liver enzymes R74.8 Mitral regurgitation I34.0 Elevated fasting blood sugar R73.01 Additional Codes SUKHI-7 Assessment Billing - SUKHI-7 Assessment Tool: SUKHI-7 Assessment 49223 ([id number]) PHQ-9 - 77790 - PHQ-9 Billing: Yes ([id number]) Assessment & Plan Assessment & Plan (1) Elevated liver enzymes: Code(s): R74.8 - Abnormal levels of other serum enzymes Category: Medical (2) Mitral regurgitation: Code(s): I34.0 - Nonrheumatic mitral (valve) insufficiency Category: Medical (3) Elevated fasting blood sugar: Code(s): R73.01 - Impaired fasting glucose Category: Medical Plan . Orders: Orders US abdomen complete Today R74.8 - Abnormal levels of other serum enzymes Medications: New cholecalciferol (vitamin D3) 50 mcg PO DAILY 90 caps 2RF tadalafil administer approximately 30min before sexual activity; do not use more than 1 dose per 24hrs 5 mg PO DAILY PRN 10 tabs 2RF sexual activity 10 days Discontinued sildenafil administer 30 minutes to 4 hours before activity Discontinued Reason: Duplicate 25 mg PO DAILY PRN 10 tabs 2RF sexual activity
== END 2025-09-13 08:30 | disposition home or self-care (01) ==
LOC: HO.HMCC 07:51
PROVIDERS: PCP Nurse Practitioner Family; Visit Provider Nurse Practitioner Family
DX: Z00.00 Encounter for general adult medical examination without abnormal findings (principal); R74.8 Abnormal levels of other serum enzymes; I34.0 Nonrheumatic mitral (valve) insufficiency; R73.01 Impaired fasting glucose

== ENCOUNTER → 2025-09-13 07:50 | Outpatient (BNVA) | payer MEDICARE, SELFPAY | PROVIDERS: PCP Nurse Practitioner Family; Visit Provider Nurse Practitioner Family | DX: Z00.00 Encounter for general adult medical examination without abnormal findings (principal); R74.8 Abnormal levels of other serum enzymes; N52.9 Male erectile dysfunction, unspecified; K76.0 Fatty (change of) liver, not elsewhere classified; I34.0 Nonrheumatic mitral (valve) insufficiency; R73.01 Impaired fasting glucose | CPT/HCPCS: 96127; 99212; 99397 ==